=== PATIENT | female | born 1960 | race Caucasian/White ===

== ENCOUNTER 2018-09-20 07:30 | Outpatient (RCR) | payer BC, SELFPAY ==
--- NOTE | 2018-08-11 10:49 | HP.PTEVAL_ITS ---
Patient's Visit Information KANDY FLEMING is a 58 year old F referred to Physical Therapy by Claudia Griffith MD with a diagnosis of c/s radiculopathy. Date of Evaluation: 08/11/18 Physical Therapist: Ian Aguilar, DPT, OCS, CSCS - Visit Plan Frequency: 2x /Week Duration: 4-6 Weeks Plan: 2x/week for 4-6 weeks... 1. Stephanie based progression of c/s ret/ext forces and monitor UE AROM, c/s AROM and symptoms. Progress to remodelling ex as helpful. 2. Postural correction and strength of posture and R RC. May need to do ext rot and flexion R shoulder ROM if stiffness not abated. 3. May use STM and ES if needed on R neck for pain if exs don't control symptoms. Pt may get MRI if therapy not helpful. - Subjective Findings: 9 years ago severe neck pain and down R arm insidiously. Had MRI adn found spurs and had PT and it improved and improved to normal life but not completely, has taken anti inflammatory for 9 years to keep it loos. Got soreness every now and then. Last January started getting sore more often. However in July it became regular and went into R arm again vs just neck. Now hard to move arm with full mobility. Went to doctor who ordered x rays and had them, then ordered PT. X rays show narrowing at base of neck. Wanted MRI but needs to have therapy first. Neck pain intermittently gets to 6/10 worse later in day and shoots to 9/10. Happens with moving arm as in reaching down to bottom shelf. Taking clothes out of dryer is tough. [ain is L side of neck and into shoulder. Also goes down arm to constant bicep and numbness in fingers 2/3 pretty constant but differing intensities. Wrist is sore at times. 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 Sleep is pretty good says she talks in sleep alot. Hobbies:Enjoys walking and still does it carefully. Plays with grand daughter adn this can hurt. is disabled and limits hobbies. Basic ADLS Ok just painful. Grocery store can hurt. - Pain R neck pain Pain Intensity (Out of 10): 5 Pain Intensity Range: 3, 9 - Objective Functional: Walks and transfers I with good balance. Posture is forward head and anterior scapula. UE AROM L WNL and R ext rotation to 40 R and 75 L, hurts at end range, R IR painful and to belt line, L is WNL, flexion is painful and stiff R at 120 and L is full. PROM painful past 120 and firm endfeel. c/s aROM 50 R rot with pain R, 60 L rotation without pain, 45 ext with pain R, flexion is WFL. reflexes 2/3 bi and tri. Sensation currently WNL to gross light touch in UE. + HK and neer. - sulcus R. - ext rotation lag test. - c/s compression test. repeated movements: c/s protrusion improved UE ROM , NE symptoms. c/s Retraction repeated: improved ROM UE adn neck ext , NE symptoms. Repeated c/s ret/ext: B UE adn neck ROM rot and ext. - Goals Goal 1:: Full aROM UE and c/s without increased pain to facilitate ADLS. Goal Time Frame: 4-6 Weeks Goal 2:: Pt feel back to baseline pain of 0-1/10 in necka nd no UE tingling. Goal Time Frame: 4-6 Weeks Goal 3:: Pt feel 90% better overall adn I approp HEP to maintain improvements Goal Time Frame: 4-6 Weeks Goal 4:: Work without increasing symptoms. Goal Time Frame: 4-6 Weeks - Rehabilitation Potential Physical Therapy Diagnosis: c/s radiculopathy with concurrent impingement. Rehabilitation Potential: Fair - Anticipated Interventions Patient/Client Instruction: Educate patient on: Condition, Plan of Care For the Purpose of:: To decrease pain, To increase ROM Therapeutic Exercise to Include: Strength training, Passive ROM, Active ROM, Stephanie Exercises For the Purpose of:: To decrease pain, To increase ROM, To improve muscle performance and motor function, To improve ability of physical actions for home/community/work/leisure Manual Therapy Techniques to Include: Soft tissue mobilization For the Purpose of:: To decrease pain, To increase ROM TENS: Yes Thermo therapy (hot pack): Yes For the Purpose of:: To increase ROM Thank you for the opportunity to evaluate your patient. For Medicare and Medicare HMO plans, please review the plan of care and approve it. It will need to be FAXED BACK to us at [phone] for Medicare purposes. For Medicare only, by signing this I certify the plan of care. Please let me know if there are questions or concerns regarding this plan of care. Physician Signature:____ Date:
--- NOTE | 2018-09-20 07:59 | HP.PTREVAL ---
Claudia Griffith MD, It has been my pleasure to treat KANDY FLEMING over the last 10 visits for c/s radiculopathy. Please see the progress note below for an update on the physical therapy plan of care! Subjective: Pain seems better. Only when pushes with exercises. Reaching behind to fasten bra and tuck in shirt are not perfect. Reaaching up is not bad. No pain at rest. Sleeping well. Motion is improving slowly. Objective/Function: 140 flexiona dn abduction, 55 exct rotation andL5 IR or at 90 degree abd is at 45 degrees and scap pulliing forward. strength is symmetrical at 4/5 flexion, abd, ext rot, int rot. No pain in neutral position, just with end range stretch. Tolerable. Plan Plan: Pt to doctor later in week. Says pain adn ucntion is livable now and not interested in further interventions if not needed. Plan to f/u every couple weeks in PT to ensure progress adn modify HEP as needed until patient doing well. Goals Goal 1:: Full aROM UE and c/s without increased pain to facilitate ADLS. Goal Time Frame: 4-6 Weeks Goal Progress: Progressing Goal 2:: Pt feel back to baseline pain of 0-1/10 in necka nd no UE tingling. Goal Time Frame: 4-6 Weeks Goal Progress: Goal Met Goal 3:: Pt feel 90% better overall adn I approp HEP to maintain improvements Goal Time Frame: 4-6 Weeks Goal Progress: Progressing Goal 4:: Work without increasing symptoms. Goal Time Frame: 4-6 Weeks Goal Progress: Goal Met Goal 5:: Pt continue to make progress with ROM via HEP without increased pain to help with ADL fastening bra and raching into cupboard. Goal Time Frame: 2-4 Weeks Goal Progress: NEW GOAL Anticipated Interventions Patient/Client Instruction: Educate patient on: Condition, Plan of Care For the Purpose of:: To decrease pain, To increase ROM Therapeutic Exercise to Include: Strength training, Passive ROM, Active ROM, Ivanna Exercises For the Purpose of:: To decrease pain, To increase ROM, To improve muscle performance and motor function, To improve ability of physical actions for home/community/work/leisure Manual Therapy Techniques to Include: Soft tissue mobilization For the Purpose of:: To decrease pain, To increase ROM TENS: Yes Thermo therapy (hot pack): Yes For the Purpose of:: To increase ROM Please do not hesitate to contact me at [phone] by phone or if you have questions or concerns regarding this new plan of care! Sincerely, Ian Aguilar, DPT, OCS, CSCS
--- NOTE | 2018-10-07 17:53 | HP.PTDCNRP_ITS ---
HP - Discharge Summary (1) - Patient Information KANDY FLEMING was seen in my office for initial evaluation on 08/11/18. The following Plan of Care was established for this patient: Initial Frequency: 2x /Week Initial Duration: 4-6 Weeks - Anticipated Interventions Patient/Client Instruction: Educate patient on: Condition, Plan of Care For the Purpose of:: To decrease pain, To increase ROM Therapeutic Exercise to Include: Strength training, Passive ROM, Active ROM, Ivanna Exercises For the Purpose of:: To decrease pain, To increase ROM, To improve muscle per formance and motor function, To improve ability of physical actions for home/community/work/leisure Manual Therapy Techniques to Include: Soft tissue mobilization For the Purpose of:: To decrease pain, To increase ROM TENS: Yes Thermo therapy (hot pack): Yes For the Purpose of:: To increase ROM This patient was last seen in our office 09/20/18. Pertinent comments regarding their Physical therapy will appear below: Pt seen for 10 visits and doing well. Was to f/u for checks but has called and cancelled stating that she is doing well and does nto need to return. At this point I will be discontinuing this patient from physical therapy. I would be happy to see this patient again in the future if found appropriate by the physician. Thank you! Ian Aguilar, DPT, OCS, CSCS
== END 2018-09-20 19:00 | disposition home or self-care (01) ==
LOC: PT 07:30
PROVIDERS: Family Provider Family Medicine; PCP Family Medicine; Referring Provider Family Medicine; Visit Provider Family Medicine
DX: M54.2 Cervicalgia (principal); M79.601 Pain in right arm
CPT/HCPCS: 97110; 97140; 97162; 97530

== ENCOUNTER → 2020-07-04 13:26 | Outpatient (CLI) | payer BC, SELFPAY ==
--- NOTE | 2020-07-04 13:35 | RAD_ITS ---
STUDY: X-RAY - LUMBAR SPINE REASON FOR EXAM: Female, 59 years old. CHRONIC PAIN, NKI TECHNIQUE: 3 view(s) of the lumbar spine were obtained. COMPARISON: None FINDINGS: Normal lumbar lordosis. Slight dextrocurvature. There is a normal alignment of the vertebrae. Normal vertebral bodies and endplates. Advanced disc narrowing at L5-S1. Mild disc narrowing at other lumbar levels. Facet arthrosis at L3-4, L4-5 and L5-S1. Mild vascular calcification. RAD/Lumbar Spine 2 or 3 Views IMPRESSION: Normal lordosis of the lumbar spine with a slight dextrocurvature. Negative for fracture, osteolytic or blastic bone lesion. Severe disc narrowing at L5-S1. Mild disc narrowing at other levels. Facet arthrosis at L3-4, L4-5 and L5-S1. Electronically Signed: Michelle Barrett MD at 20:29 EST , Service support ,
--- NOTE | 2020-07-04 13:35 | RAD_ITS ---
STUDY: X-RAY - SACRUM/COCCYX REASON FOR EXAM: Female, 59 years old. CHRONIC PAIN, NKI TECHNIQUE: 3 view(s) of the sacrum and coccyx were obtained. COMPARISON: None. FINDINGS: Normal bilateral sacroiliac joints. Normal visualized sacral ala and fused sacral bodies. Normal sacrococcygeal junction with a normal angulation. Normal coccygeal segments. The presacral soft tissue structures are unremarkable. RAD/Sacrum-Coccyx min 2 Views IMPRESSION: Normal x-rays of the sacrum and coccyx. Electronically Signed: Michelle Barrett MD at 20:38 EST , Service support ,
== END ==
PROVIDERS: PCP Family Medicine; Referring Provider Anesthesiology Pain Medicine; Visit Provider Anesthesiology Pain Medicine
DX: M54.9 Dorsalgia, unspecified (principal)
CPT/HCPCS: 72100; 72220

== ENCOUNTER 2020-11-21 14:33 | Outpatient (RCR) | payer BC, SELFPAY ==
[2020-11-21] MEDS: COVID-19 VACC, MRNA(PFIZER)/PF 30 MCG/0.3 ML SYRINGE IM (13:03)
[2020-12-12] MEDS: COVID-19 VACC, MRNA(PFIZER)/PF 30 MCG/0.3 ML SYRINGE IM (12:30)
== END 2021-01-08 23:59 ==
LOC: IMMUN 14:33
PROVIDERS: PCP Family Medicine; Referring Provider Family Medicine; Visit Provider Family Medicine
DX: Z23 Encounter for immunization (principal)
CPT/HCPCS: 0001A; 0002A; 91300

== ENCOUNTER → 2020-12-04 15:10 | Outpatient (CLI) | payer BC, SELFPAY ==
[2020-12-04 14:37] VITALS: BMI 36.9
--- NOTE | 2020-12-04 15:36 | RAD_ITS ---
STUDY: X-RAY - RIGHT KNEE REASON FOR EXAM: Female, 60 years old. Pain. TECHNIQUE: 4 view(s) of the knee. COMPARISON: None. FINDINGS: Normal visualized distal femur. Normal visualized proximal tibia and fibula. Normal proximal tibiofibular articulation. There is no acute fracture, dislocation or destructive osseous pathology. Normal medial femorotibial compartment. Normal lateral femorotibial compartment. Normal patellofemoral articulation. There is no demonstrated joint effusion. The soft tissue structures are unremarkable. RAD/Knee 4 or More Views IMPRESSION: Normal x-ray examination of the knee. Electronically Signed: Thda Naylor DO at 23:46 EDT Tel [phone], Service support ,
[2020-12-04 16:47] LABS: Absolute Lymphocyte Count 2.91 X10^3/uL (0.83-4.51); Absolute Neutrophil Count 2.9 X10^3/uL (2.0-7.7); Basophil# 0.06 X10^3/uL; Basophil% 0.9 % (0-1); Eosinophil# 0.14 X10^3/uL; Eosinophils% 2.2 % (0-5); Hematocrit 40.9 % (37-47); Hemoglobin 12.5 g/dL (12.0-15.0); Lymphocyte # 2.91 X10^3/ul (0.83-4.51); Lymphocyte % 44.7 % (19-41); Mean Corp Hgb Conc 30.6 g/dL (32-36); Mean Corpuscular Hgb 28.3 pg (27.0-32.0); Mean Corpuscular Volume 92.5 fL (81-99); Mean Platelet Vol. 10.7 fl (6.2-12.0); Monocyte# 0.51 X10^3/uL; Monocyte% 7.8 % (0-10); NRBC Flagged by Analyzer 0 % (0-5); Neutrophil # 2.87 X10^3/uL (2.7-7.7); Neutrophil % 44.1 % (47-70); Platelet Count 338 K/mm3 (150-450); RBC Distribution Width SD 51.5 fl (35.1-43.9); Red Blood Count 4.42 M/mm3 (4.2-5.4); White Blood Count 6.5 K/mm3 (4.4-11.0)
[2020-12-04 16:58] LABS: Erythrocyte Sedimentation Rate 29 mm/hr (0-30)
[2020-12-04 17:23] LABS: ALB/GLOB Ratio 0.8 RATIO (0.9-2.4); AST(SGOT) 34 U/L (15-37); Alanine Aminotransfer ALT/SGPT 49 U/L (13-56); Albumin, Serum 3.5 g/dL (3.2-5.0); Alkaline Phosphatase 103 U/L (45-117); Anion Gap 8 (5-15); BUN 13 mg/dL (7-18); BUN/Creat Ratio 19.3 RATIO (10-20); Calcium,Total 8.8 mg/dL (8.5-10.1); Chloride 105 mmol/L (98-107); Creatinine, Serum 0.68 mg/dL (0.55-1.02); EST Glomerular Filtration Rate 95 mL/min (>60); Est Glom Filt Rate - Afr Amer 115 mL/min (>60); Globulin 4.3 g/dL (2.2-4.2); Glucose 78 mg/dL (74-106); Protein, Total 7.8 g/dL (6.4-8.2); Sodium Level 140 mmol/L (136-145); Thyroid Stim Hormone (TSH) 1.41 uIU/mL (0.358-3.74)
[2020-12-06 15:40] LABS: ANTINUCLEAR ANTIBODIES DIRECT Negative (Negative)
== END ==
PROVIDERS: PCP Internal Medicine; Referring Provider Internal Medicine; Visit Provider Internal Medicine
DX: M25.561 Pain in right knee (principal); M19.90 Unspecified osteoarthritis, unspecified site; Z13.29 Encounter for screening for other suspected endocrine disorder
CPT/HCPCS: 36415; 73564; 80053; 84439; 84443; 85025; 85652; 86038; 86140; 86225; 86235; 86431

== ENCOUNTER → 2020-12-20 09:56 | Outpatient (CLI) | payer BC, SELFPAY ==
[2020-12-20 09:15] VITALS: BMI 36.9
--- NOTE | 2020-12-20 09:59 | RAD_ITS ---
STUDY: X-RAY CHEST REASON FOR EXAM: Female, 60 years old. Cough, wheeze -- Negative COVID-19 12/17 TECHNIQUE: PA and lateral views of the chest. COMPARISON: None. FINDINGS: There are interstitial changes of the lungs. There is no demonstrated pleural abnormality. Normal size heart. Normal mediastinum and maddy. Normal visualized pulmonary arteries. Normal visualized aortic arch and descending thoracic aorta. There are diffuse degenerative changes of the visualized thoracic spine. Normal visualized ribs, clavicles, and shoulders. There is no demonstrated abnormality of the visualized soft tissue structures of the upper abdomen. RAD/Chest PA and Lateral IMPRESSION: Chronic interstitial changes, no superimposed acute pulmonary process Electronically Signed: Gerardo Aguilar MD at 10:42 EDT , Service support ,
== END ==
PROVIDERS: PCP Internal Medicine; Referring Provider Physician Assistant; Visit Provider Physician Assistant
DX: R05 Cough (principal); R06.2 Wheezing; R09.89 Other specified symptoms and signs involving the circulatory and respiratory systems
CPT/HCPCS: 71046

== ENCOUNTER → 2021-01-14 08:54 | Outpatient (CLI) | payer BC, SELFPAY ==
[2021-01-14 08:29] VITALS: BMI 36.9
== END ==
PROVIDERS: PCP Internal Medicine; Referring Provider Internal Medicine; Visit Provider Internal Medicine
DX: M06.9 Rheumatoid arthritis, unspecified (principal); M19.90 Unspecified osteoarthritis, unspecified site
CPT/HCPCS: 36415; 86140; 86431

== ENCOUNTER → 2021-01-22 09:38 | Outpatient (CLI) | payer BC, SELFPAY ==
[2021-01-14 08:29] VITALS: BMI 36.9
[2021-01-22 12:39] LABS: Absolute Lymphocyte Count 2.34 X10^3/uL (0.83-4.51); Absolute Neutrophil Count 3.8 X10^3/uL (2.0-7.7); Basophil# 0.06 X10^3/uL; Basophil% 0.9 % (0-1); Eosinophil# 0.15 X10^3/uL; Eosinophils% 2.1 % (0-5); Hemoglobin 13.4 g/dL (12.0-15.0); Lymphocyte # 2.34 X10^3/ul (0.83-4.51); Lymphocyte % 33.2 % (19-41); Mean Corp Hgb Conc 31.2 g/dL (32-36); Mean Corpuscular Hgb 28.4 pg (27.0-32.0); Mean Corpuscular Volume 91.1 fL (81-99); Mean Platelet Vol. 11.4 fl (6.2-12.0); Monocyte# 0.66 X10^3/uL; Monocyte% 9.4 % (0-10); NRBC Flagged by Analyzer 0 % (0-5); Platelet Count 312 K/mm3 (150-450); RBC Distribution Width CV 15.1 % (11.6-14.6); RBC Distribution Width SD 50.6 fl (35.1-43.9); Red Blood Count 4.72 M/mm3 (4.2-5.4)
[2021-01-22 13:14] LABS: ALB/GLOB Ratio 0.9 RATIO (0.9-2.4); AST(SGOT) 19 U/L (15-37); Alanine Aminotransfer ALT/SGPT 26 U/L (13-56); Albumin, Serum 3.5 g/dL (3.2-5.0); Alkaline Phosphatase 100 U/L (45-117); Anion Gap 5 (5-15); BUN 14 mg/dL (7-18); BUN/Creat Ratio 17.1 RATIO (10-20); Calcium,Total 8.9 mg/dL (8.5-10.1); Chloride 109 mmol/L (98-107); Creatinine, Serum 0.82 mg/dL (0.55-1.02); EST Glomerular Filtration Rate 76 mL/min (>60); Est Glom Filt Rate - Afr Amer 92 mL/min (>60); Globulin 3.8 g/dL (2.2-4.2); Glucose 84 mg/dL (74-106); Potassium 4.5 mmol/L (3.5-5.1); Protein, Total 7.3 g/dL (6.4-8.2); Sodium Level 142 mmol/L (136-145)
[2021-01-22 13:40] LABS: Hepatitis B Surface Antibody Non-Reactive; Hepatitis B Surface Antigen Non-Reactive (Nonreactive); Hepatitis C Antibody Non-Reactive (Nonreactive)
== END ==
PROVIDERS: PCP Internal Medicine; Referring Provider Internal Medicine Rheumatology; Visit Provider Internal Medicine Rheumatology
DX: M05.79 Rheumatoid arthritis with rheumatoid factor of multiple sites without organ or systems involvement (principal); Z79.899 Other long term (current) drug therapy; Z86.711 Personal history of pulmonary embolism
CPT/HCPCS: 36415; 80053; 85025; 86706; 86803; 87340

== ENCOUNTER → 2021-04-10 07:33 | Outpatient (CLI) | payer BC, SELFPAY ==
[2021-04-10 10:07] LABS: Absolute Lymphocyte Count 1.82 X10^3/uL (0.83-4.51); Absolute Neutrophil Count 5.9 X10^3/uL (2.0-7.7); Basophil# 0.07 X10^3/uL; Basophil% 0.8 % (0-1); Eosinophil# 0.15 X10^3/uL; Eosinophils% 1.7 % (0-5); Hematocrit 37.8 % (37-47); Hemoglobin 11.9 g/dL (12.0-15.0); Lymphocyte # 1.82 X10^3/ul (0.83-4.51); Lymphocyte % 21.1 % (19-41); Mean Corp Hgb Conc 31.5 g/dL (32-36); Mean Corpuscular Volume 92.2 fL (81-99); Mean Platelet Vol. 10.7 fl (6.2-12.0); Monocyte# 0.71 X10^3/uL; Monocyte% 8.2 % (0-10); NRBC Flagged by Analyzer 0 % (0-5); Neutrophil # 5.85 X10^3/uL (2.7-7.7); Neutrophil % 67.9 % (47-70); Platelet Count 318 K/mm3 (150-450); RBC Distribution Width CV 16.4 % (11.6-14.6); RBC Distribution Width SD 54.4 fl (35.1-43.9); White Blood Count 8.6 K/mm3 (4.4-11.0)
[2021-04-10 10:20] LABS: ALB/GLOB Ratio 0.8 RATIO (0.9-2.4); AST(SGOT) 19 U/L (15-37); Alanine Aminotransfer ALT/SGPT 27 U/L (13-56); Albumin, Serum 3.1 g/dL (3.2-5.0); Alkaline Phosphatase 87 U/L (45-117); Anion Gap 3 (5-15); BUN 13 mg/dL (7-18); BUN/Creat Ratio 17.2 RATIO (10-20); Calcium,Total 8.7 mg/dL (8.5-10.1); Chloride 111 mmol/L (98-107); Creatinine, Serum 0.76 mg/dL (0.55-1.02); EST Glomerular Filtration Rate 83 mL/min (>60); Est Glom Filt Rate - Afr Amer 101 mL/min (>60); Globulin 3.9 g/dL (2.2-4.2); Glucose 143 mg/dL (74-106); Sodium Level 142 mmol/L (136-145)
== END ==
PROVIDERS: PCP Internal Medicine; Referring Provider Internal Medicine Rheumatology; Visit Provider Internal Medicine Rheumatology
DX: M05.79 Rheumatoid arthritis with rheumatoid factor of multiple sites without organ or systems involvement (principal); Z79.899 Other long term (current) drug therapy; Z86.711 Personal history of pulmonary embolism
CPT/HCPCS: 36415; 80053; 85025

== ENCOUNTER → 2021-06-18 07:08 | Outpatient (CLI) | payer BC, SELFPAY ==
[2021-06-18 09:55] LABS: Absolute Lymphocyte Count 2.07 X10^3/uL (0.83-4.51); Absolute Neutrophil Count 2.9 X10^3/uL (2.0-7.7); Basophil# 0.06 X10^3/uL; Basophil% 1.1 % (0-1); Eosinophil# 0.14 X10^3/uL; Eosinophils% 2.5 % (0-5); Hematocrit 40.8 % (37-47); Hemoglobin 13.1 g/dL (12.0-15.0); Lymphocyte # 2.07 X10^3/ul (0.83-4.51); Lymphocyte % 36.8 % (19-41); Mean Corp Hgb Conc 32.1 g/dL (32-36); Mean Corpuscular Hgb 29.6 pg (27.0-32.0); Mean Corpuscular Volume 92.1 fL (81-99); Mean Platelet Vol. 11.4 fl (6.2-12.0); Monocyte# 0.44 X10^3/uL; Monocyte% 7.8 % (0-10); NRBC Flagged by Analyzer 0 % (0-5); Neutrophil # 2.91 X10^3/uL (2.7-7.7); Neutrophil % 51.6 % (47-70); Platelet Count 284 K/mm3 (150-450); RBC Distribution Width SD 54.2 fl (35.1-43.9); Red Blood Count 4.43 M/mm3 (4.2-5.4); White Blood Count 5.6 K/mm3 (4.4-11.0)
[2021-06-18 10:24] LABS: ALB/GLOB Ratio 0.9 RATIO (0.9-2.4); AST(SGOT) 18 U/L (15-37); Alanine Aminotransfer ALT/SGPT 26 U/L (13-56); Albumin, Serum 3.4 g/dL (3.2-5.0); Alkaline Phosphatase 92 U/L (45-117); Anion Gap 4 (5-15); BUN 18 mg/dL (7-18); BUN/Creat Ratio 23.6 RATIO (10-20); Calcium,Total 8.9 mg/dL (8.5-10.1); Chloride 109 mmol/L (98-107); Creatinine, Serum 0.76 mg/dL (0.55-1.02); EST Glomerular Filtration Rate 82 mL/min (>60); Est Glom Filt Rate - Afr Amer 99 mL/min (>60); Globulin 3.8 g/dL (2.2-4.2); Glucose 125 mg/dL (74-106); Protein, Total 7.2 g/dL (6.4-8.2); Sodium Level 141 mmol/L (136-145)
== END ==
PROVIDERS: PCP Internal Medicine; Referring Provider Internal Medicine Rheumatology; Visit Provider Internal Medicine Rheumatology
DX: M05.79 Rheumatoid arthritis with rheumatoid factor of multiple sites without organ or systems involvement (principal); Z79.899 Other long term (current) drug therapy; Z86.711 Personal history of pulmonary embolism
CPT/HCPCS: 36415; 80053; 85025

== ENCOUNTER 2021-08-06 12:54 | Outpatient (CLI) | payer BC, SELFPAY | END 2021-08-06 23:59 | disposition short-term general hospital (02) | PROVIDERS: PCP Internal Medicine; Referring Provider Physician Assistant; Visit Provider Physician Assistant | DX: Z11.52 Encounter for screening for COVID-19 (principal) | CPT/HCPCS: 87635; U0003; U0005 ==

== ENCOUNTER 2021-08-13 07:20 | Outpatient (CLI) | payer BC, SELFPAY ==
[2021-08-13 10:10] LABS: Absolute Lymphocyte Count 2.09 X10^3/uL (0.83-4.51); Absolute Neutrophil Count 4.3 X10^3/uL (2.0-7.7); Basophil# 0.05 X10^3/uL; Basophil% 0.7 % (0-1); Eosinophil# 0.09 X10^3/uL; Eosinophils% 1.3 % (0-5); Hematocrit 41.6 % (37-47); Hemoglobin 13.2 g/dL (12.0-15.0); Lymphocyte # 2.09 X10^3/ul (0.83-4.51); Lymphocyte % 29.8 % (19-41); Mean Corp Hgb Conc 31.7 g/dL (32-36); Mean Corpuscular Hgb 30.1 pg (27.0-32.0); Mean Platelet Vol. 11.3 fl (6.2-12.0); Monocyte# 0.47 X10^3/uL; Monocyte% 6.7 % (0-10); NRBC Flagged by Analyzer 0 % (0-5); Neutrophil % 61.2 % (47-70); Platelet Count 289 K/mm3 (150-450); RBC Distribution Width CV 17.2 % (11.6-14.6); RBC Distribution Width SD 59.3 fl (35.1-43.9); Red Blood Count 4.38 M/mm3 (4.2-5.4)
[2021-08-13 10:20] LABS: ALB/GLOB Ratio 0.9 RATIO (0.9-2.4); AST(SGOT) 16 U/L (15-37); Alanine Aminotransfer ALT/SGPT 24 U/L (13-56); Albumin, Serum 3.1 g/dL (3.2-5.0); Alkaline Phosphatase 87 U/L (45-117); Anion Gap 5 (5-15); BUN 16 mg/dL (7-18); BUN/Creat Ratio 20.4 RATIO (10-20); Calcium,Total 8.9 mg/dL (8.5-10.1); Chloride 108 mmol/L (98-107); Creatinine, Serum 0.79 mg/dL (0.55-1.02); EST Glomerular Filtration Rate 79 mL/min (>60); Est Glom Filt Rate - Afr Amer 96 mL/min (>60); Globulin 3.6 g/dL (2.2-4.2); Glucose 111 mg/dL (74-106); Potassium 3.9 mmol/L (3.5-5.1); Protein, Total 6.7 g/dL (6.4-8.2); Sodium Level 144 mmol/L (136-145)
== END 2021-08-13 23:59 | disposition short-term general hospital (02) ==
LOC: MTLAB 07:21
PROVIDERS: PCP Internal Medicine; Referring Provider Internal Medicine Rheumatology; Visit Provider Internal Medicine Rheumatology
DX: M05.70 Rheumatoid arthritis with rheumatoid factor of unspecified site without organ or systems involvement (principal); Z79.899 Other long term (current) drug therapy; Z86.711 Personal history of pulmonary embolism
CPT/HCPCS: 36415; 80053; 85025

== ENCOUNTER 2021-09-09 15:10 | Outpatient (CLI) | payer BC, SELFPAY | END 2021-09-09 23:59 | disposition home or self-care (01) | LOC: IMMUN 09-10 15:10 | PROVIDERS: PCP Internal Medicine; Referring Provider Family Medicine; Visit Provider Family Medicine | DX: Z23 Encounter for immunization (principal) ==

== ENCOUNTER 2021-11-04 11:59 | Outpatient (CLI) | payer BC, SELFPAY ==
[2021-11-04 15:10] LABS: Absolute Lymphocyte Count 3.54 X10^3/uL (0.83-4.51); Basophil# 0.06 X10^3/uL; Basophil% 0.6 % (0-1); Eosinophil# 0.08 X10^3/uL; Eosinophils% 0.9 % (0-5); Hematocrit 41.2 % (37-47); Hemoglobin 12.9 g/dL (12.0-15.0); Lymphocyte # 3.54 X10^3/ul (0.83-4.51); Lymphocyte % 37.9 % (19-41); Mean Corp Hgb Conc 31.3 g/dL (32-36); Mean Corpuscular Hgb 30.1 pg (27.0-32.0); Mean Platelet Vol. 11.2 fl (6.2-12.0); Monocyte# 0.66 X10^3/uL; Monocyte% 7.1 % (0-10); NRBC Flagged by Analyzer 0 % (0-5); Neutrophil # 4.97 X10^3/uL (2.7-7.7); Neutrophil % 53.2 % (47-70); Platelet Count 301 K/mm3 (150-450); RBC Distribution Width CV 15.9 % (11.6-14.6); RBC Distribution Width SD 55.3 fl (35.1-43.9); Red Blood Count 4.29 M/mm3 (4.2-5.4); White Blood Count 9.3 K/mm3 (4.4-11.0)
[2021-11-04 16:10] LABS: ALB/GLOB Ratio 1.2 RATIO (0.9-2.4); AST(SGOT) 20 U/L (15-37); Alanine Aminotransfer ALT/SGPT 37 U/L (13-56); Albumin, Serum 3.8 g/dL (3.2-5.0); Alkaline Phosphatase 86 U/L (45-117); Anion Gap 5 (5-15); BUN 15 mg/dL (7-18); BUN/Creat Ratio 18.3 RATIO (10-20); Calcium,Total 8.9 mg/dL (8.5-10.1); Chloride 101 mmol/L (98-107); Creatinine, Serum 0.82 mg/dL (0.55-1.02); EST Glomerular Filtration Rate 75 mL/min (>60); Est Glom Filt Rate - Afr Amer 91 mL/min (>60); Globulin 3.3 g/dL (2.2-4.2); Glucose 77 mg/dL (74-106); Potassium 3.8 mmol/L (3.5-5.1); Protein, Total 7.1 g/dL (6.4-8.2); Sodium Level 138 mmol/L (136-145)
== END 2021-11-04 23:59 | disposition home or self-care (01) ==
LOC: MTLAB 12:00
PROVIDERS: PCP Internal Medicine; Referring Provider Internal Medicine Rheumatology; Visit Provider Internal Medicine Rheumatology
DX: M05.70 Rheumatoid arthritis with rheumatoid factor of unspecified site without organ or systems involvement (principal); Z86.711 Personal history of pulmonary embolism; Z79.899 Other long term (current) drug therapy
CPT/HCPCS: 36415; 80053; 85025

== ENCOUNTER → 2022-02-05 | Outpatient (CLI) | payer BC, SELFPAY ==
[2022-02-05 10:19] LABS: Absolute Lymphocyte Count 1.73 X10^3/uL (0.83-4.51); Absolute Neutrophil Count 2.7 X10^3/uL (2.0-7.7); Basophil# 0.08 X10^3/uL; Basophil% 1.5 % (0-1); Eosinophil# 0.15 X10^3/uL; Eosinophils% 2.9 % (0-5); Hematocrit 37.6 % (37-47); Lymphocyte # 1.73 X10^3/ul (0.83-4.51); Mean Corp Hgb Conc 31.9 g/dL (32-36); Mean Corpuscular Hgb 30.2 pg (27.0-32.0); Mean Corpuscular Volume 94.7 fL (81-99); Monocyte# 0.52 X10^3/uL; Monocyte% 9.9 % (0-10); NRBC Flagged by Analyzer 0 % (0-5); Neutrophil # 2.74 X10^3/uL (2.7-7.7); Neutrophil % 52.3 % (47-70); Platelet Count 281 K/mm3 (150-450); RBC Distribution Width CV 15.8 % (11.6-14.6); RBC Distribution Width SD 53.9 fl (35.1-43.9); Red Blood Count 3.97 M/mm3 (4.2-5.4); White Blood Count 5.2 K/mm3 (4.4-11.0)
[2022-02-05 10:38] LABS: AST(SGOT) 19 U/L (15-37); Alanine Aminotransfer ALT/SGPT 23 U/L (13-56); Albumin, Serum 3.2 g/dL (3.2-5.0); Alkaline Phosphatase 77 U/L (45-117); Anion Gap 5 (5-15); BUN 13 mg/dL (7-18); BUN/Creat Ratio 17.4 RATIO (10-20); Calcium,Total 8.5 mg/dL (8.5-10.1); Chloride 109 mmol/L (98-107); Creatinine, Serum 0.74 mg/dL (0.55-1.02); EST Glomerular Filtration Rate 84 mL/min (>60); Est Glom Filt Rate - Afr Amer 102 mL/min (>60); Globulin 3.1 g/dL (2.2-4.2); Glucose 110 mg/dL (74-106); Potassium 4.1 mmol/L (3.5-5.1); Protein, Total 6.3 g/dL (6.4-8.2); Sodium Level 141 mmol/L (136-145)
== END | disposition home or self-care (01) ==
LOC: MTLAB 07:13
PROVIDERS: PCP Internal Medicine; Referring Provider Internal Medicine Rheumatology; Visit Provider Internal Medicine Rheumatology
DX: M05.70 Rheumatoid arthritis with rheumatoid factor of unspecified site without organ or systems involvement (principal); Z86.711 Personal history of pulmonary embolism; Z79.899 Other long term (current) drug therapy
CPT/HCPCS: 36415; 80053; 85025

== ENCOUNTER → 2022-05-06 | Outpatient (CLI) | payer BC, SELFPAY ==
[2022-05-06 10:07] LABS: Absolute Lymphocyte Count 1.83 X10^3/uL (0.83-4.51); Absolute Neutrophil Count 2.6 X10^3/uL (2.0-7.7); Basophil# 0.06 X10^3/uL; Basophil% 1.2 % (0-1); Eosinophil# 0.11 X10^3/uL; Eosinophils% 2.2 % (0-5); Hematocrit 40.2 % (37-47); Hemoglobin 12.9 g/dL (12.0-15.0); Lymphocyte # 1.83 X10^3/ul (0.83-4.51); Mean Corp Hgb Conc 32.1 g/dL (32-36); Mean Corpuscular Hgb 31.3 pg (27.0-32.0); Mean Corpuscular Volume 97.6 fL (81-99); Mean Platelet Vol. 11.5 fl (6.2-12.0); Monocyte# 0.38 X10^3/uL; Monocyte% 7.7 % (0-10); NRBC Flagged by Analyzer 0 % (0-5); Neutrophil # 2.56 X10^3/uL (2.7-7.7); Neutrophil % 51.7 % (47-70); Platelet Count 251 K/mm3 (150-450); RBC Distribution Width CV 15.4 % (11.6-14.6); RBC Distribution Width SD 54.8 fl (35.1-43.9); Red Blood Count 4.12 M/mm3 (4.2-5.4)
[2022-05-06 10:17] LABS: Erythrocyte Sedimentation Rate 3 mm/hr (0-30)
[2022-05-06 11:08] LABS: ALB/GLOB Ratio 0.9 RATIO (0.9-2.4); AST(SGOT) 21 U/L (15-37); Alanine Aminotransfer ALT/SGPT 27 U/L (13-56); Albumin, Serum 3.2 g/dL (3.2-5.0); Alkaline Phosphatase 73 U/L (45-117); Anion Gap 3 (5-15); BUN 13 mg/dL (7-18); BUN/Creat Ratio 16.1 RATIO (10-20); Calcium,Total 8.5 mg/dL (8.5-10.1); Chloride 109 mmol/L (98-107); EST Glomerular Filtration Rate 77 mL/min (>60); Est Glom Filt Rate - Afr Amer 93 mL/min (>60); Globulin 3.4 g/dL (2.2-4.2); Glucose 124 mg/dL (74-106); Protein, Total 6.6 g/dL (6.4-8.2); Sodium Level 142 mmol/L (136-145)
== END | disposition home or self-care (01) ==
LOC: MTLAB 07:03
PROVIDERS: PCP Internal Medicine; Referring Provider Internal Medicine Rheumatology; Visit Provider Internal Medicine Rheumatology
DX: M05.70 Rheumatoid arthritis with rheumatoid factor of unspecified site without organ or systems involvement (principal); Z79.899 Other long term (current) drug therapy; Z86.711 Personal history of pulmonary embolism
CPT/HCPCS: 36415; 80053; 85025; 85652; 86140

== ENCOUNTER → 2022-08-05 | Outpatient (CLI) | payer BC, SELFPAY ==
[2022-08-05 10:01] LABS: Erythrocyte Sedimentation Rate 10 mm/hr (0-30)
[2022-08-05 10:03] LABS: Absolute Lymphocyte Count 2.08 X10^3/uL (0.83-4.51); Absolute Neutrophil Count 2.6 X10^3/uL (2.0-7.7); Basophil# 0.05 X10^3/uL; Basophil% 0.9 % (0-1); Eosinophil# 0.12 X10^3/uL; Eosinophils% 2.3 % (0-5); Hematocrit 40.7 % (37-47); Hemoglobin 13.1 g/dL (12.0-15.0); Lymphocyte # 2.08 X10^3/ul (0.83-4.51); Lymphocyte % 39.1 % (19-41); Mean Corp Hgb Conc 32.2 g/dL (32-36); Mean Corpuscular Hgb 30.8 pg (27.0-32.0); Mean Corpuscular Volume 95.5 fL (81-99); Mean Platelet Vol. 11.4 fl (6.2-12.0); Monocyte# 0.49 X10^3/uL; Monocyte% 9.2 % (0-10); NRBC Flagged by Analyzer 0.4 % (0-5); Neutrophil # 2.57 X10^3/uL (2.7-7.7); Neutrophil % 48.3 % (47-70); Platelet Count 269 K/mm3 (150-450); RBC Distribution Width CV 14.8 % (11.6-14.6); RBC Distribution Width SD 51.3 fl (35.1-43.9); Red Blood Count 4.26 M/mm3 (4.2-5.4); White Blood Count 5.3 K/mm3 (4.4-11.0)
[2022-08-05 10:45] LABS: ALB/GLOB Ratio 1.2 RATIO (0.9-2.4); AST(SGOT) 28 U/L (15-37); Alanine Aminotransfer ALT/SGPT 45 U/L (13-56); Albumin, Serum 3.7 g/dL (3.2-5.0); Alkaline Phosphatase 80 U/L (45-117); Anion Gap 7 (5-15); BUN 19 mg/dL (7-18); BUN/Creat Ratio 23.7 RATIO (10-20); CRP 6.59 mg/L (0.0-3.0); Calcium,Total 9.1 mg/dL (8.5-10.1); Chloride 106 mmol/L (98-107); EST Glomerular Filtration Rate 77 mL/min (>60); Est Glom Filt Rate - Afr Amer 94 mL/min (>60); Glucose 115 mg/dL (74-106); Potassium 4.2 mmol/L (3.5-5.1); Protein, Total 6.7 g/dL (6.4-8.2); Sodium Level 141 mmol/L (136-145)
== END | disposition home or self-care (01) ==
LOC: MTLAB 07:08
PROVIDERS: PCP Internal Medicine; Referring Provider Internal Medicine Rheumatology; Visit Provider Internal Medicine Rheumatology
DX: M05.70 Rheumatoid arthritis with rheumatoid factor of unspecified site without organ or systems involvement (principal); Z86.711 Personal history of pulmonary embolism; Z79.899 Other long term (current) drug therapy
CPT/HCPCS: 36415; 80053; 85025; 85652; 86140

== ENCOUNTER → 2022-10-27 | Outpatient (CLI) | payer BC, SELFPAY ==
[2022-10-27 10:14] LABS: Absolute Lymphocyte Count 2.18 X10^3/uL (0.83-4.51); Absolute Neutrophil Count 2.8 X10^3/uL (2.0-7.7); Basophil# 0.06 X10^3/uL; Eosinophil# 0.22 X10^3/uL; Eosinophils% 3.8 % (0-5); Hematocrit 41.4 % (37-47); Lymphocyte # 2.18 X10^3/ul (0.83-4.51); Mean Corp Hgb Conc 31.4 g/dL (32-36); Mean Corpuscular Hgb 30.2 pg (27.0-32.0); Mean Corpuscular Volume 96.1 fL (81-99); Mean Platelet Vol. 11.6 fl (6.2-12.0); Monocyte% 8.7 % (0-10); NRBC Flagged by Analyzer 0 % (0-5); Neutrophil # 2.76 X10^3/uL (2.7-7.7); Neutrophil % 48.2 % (47-70); Platelet Count 265 K/mm3 (150-450); RBC Distribution Width CV 14.9 % (11.6-14.6); Red Blood Count 4.31 M/mm3 (4.2-5.4); White Blood Count 5.7 K/mm3 (4.4-11.0)
[2022-10-27 10:39] LABS: ALB/GLOB Ratio 1.1 RATIO (0.9-2.4); AST(SGOT) 18 U/L (15-37); Alanine Aminotransfer ALT/SGPT 26 U/L (13-56); Albumin, Serum 3.5 g/dL (3.2-5.0); Alkaline Phosphatase 73 U/L (45-117); Anion Gap 3 (5-15); BUN 20 mg/dL (7-18); BUN/Creat Ratio 22.7 RATIO (10-20); CRP 4.31 mg/L (0.0-3.0); Calcium,Total 8.9 mg/dL (8.5-10.1); Chloride 108 mmol/L (98-107); Cholesterol 198 mg/dL (200); Creatinine, Serum 0.88 mg/dL (0.55-1.02); EST Glomerular Filtration Rate 69 mL/min (>60); Est Glom Filt Rate - Afr Amer 84 mL/min (>60); Globulin 3.1 g/dL (2.2-4.2); Glucose 137 mg/dL (74-106); High Density Lipoprotein 41 mg/dL; Potassium 3.9 mmol/L (3.5-5.1); Protein, Total 6.6 g/dL (6.4-8.2); Sodium Level 140 mmol/L (136-145); Triglycerides 131 mg/dL; Very Low Density Lipoprotein 26 mg/dL (5-40)
== END | disposition home or self-care (01) ==
LOC: MTLAB 07:08
PROVIDERS: PCP Internal Medicine; Referring Provider Internal Medicine Rheumatology; Visit Provider Internal Medicine Rheumatology
DX: M05.70 Rheumatoid arthritis with rheumatoid factor of unspecified site without organ or systems involvement (principal); Z79.899 Other long term (current) drug therapy; Z86.711 Personal history of pulmonary embolism
CPT/HCPCS: 36415; 80053; 80061; 85025; 86140

== ENCOUNTER → 2022-11-18 | Outpatient (CLI) | payer BC, SELFPAY ==
--- NOTE | 2022-11-18 07:57 | MRI_ITS ---
STUDY: MRI LUMBAR SPINE WITHOUT CONTRAST REASON FOR EXAM: Female, 62 years old. RADICULOPATHY, lbp TECHNIQUE: Standardized fat and water weighted pulse sequences were obtained in the sagittal and axial planes. COMPARISON: Lumbar spine radiographs 07/04/2020. FINDINGS: T10-T11: (Sagittal only). Schmorl''s node in the T10 inferior endplate. Normal T11 superior endplate. Normal disc height. No ventral extradural defect. Normal central canal and bilateral intervertebral neural foramina. T11-T12 and T12-L1: (Sagittal only). Normal endplates. Normal disc height, hydration and morphology. No ventral extradural defects. Normal central canal and bilateral intervertebral neural foramina. Normal lumbar lordosis. There is no substantial scoliosis. Normal conus medullaris that terminates at the upper L1 vertebral body level. L1-2: Normal endplates. Normal disc height, hydration and morphology. Normal bilateral facet joints. Normal central canal and bilateral lateral recesses. Normal bilateral intervertebral neural foramina. L2-3: Normal endplates. Minimal disc space height narrowing. Mild ventral extradural defect is small posterior bulging annulus. Mild bilateral degenerative facet arthropathy. Prominent dorsal epidural lipomatosis. Normal central canal and bilateral lateral recesses. Normal bilateral intervertebral neural foramina. L3-4: Normal endplates. Mild disc space height narrowing. Minimal ventral extradural defect due to small posterior bulging annulus. Normal facet joints. Mild dorsal epidural lipomatosis. Normal central canal and bilateral lateral recesses. Normal bilateral intervertebral neural foramina. L4-5: Normal endplates. Mild disc space height narrowing. Mild right degenerative facet arthropathy. Normal left facet joint. Prominent dorsal epidural lipomatosis. Normal central canal and bilateral lateral recesses. Normal bilateral intervertebral neural foramina. L5-S1: Normal endplates. Pronounced disc space height narrowing. Normal facet joints. Normal central canal and bilateral lateral recesses. Mild to moderate stenosis of the right intervertebral neural foramen. Mild stenosis of the left intervertebral neural foramen. Normal visualized sacral ala. Normal visualized paraspinous soft tissue structures. MRI/Spine Lumbar (Routine) IMPRESSION: 1. Mild to moderate stenosis of right L5-S1 intervertebral neural foramen, mild stenosis of the left L5-S1 intervertebral neural foramen and pronounced L5-S1 degenerative disc space height narrowing. 2. No MRI evidence of lumbar extruded disc fragment or disc protrusion. Electronically Signed: Murtaza Fairbanks MD at 9:13 EDT ,
== END | disposition home or self-care (01) ==
PROVIDERS: PCP Internal Medicine; Referring Provider Anesthesiology Pain Medicine; Visit Provider Anesthesiology Pain Medicine
DX: M54.16 Radiculopathy, lumbar region (principal)
CPT/HCPCS: 72148

== ENCOUNTER → 2023-01-19 | Outpatient (CLI) | payer BC, SELFPAY ==
[2023-01-19 10:14] LABS: Absolute Lymphocyte Count 2.24 X10^3/uL (0.83-4.51); Absolute Neutrophil Count 3.1 X10^3/uL (2.0-7.7); Basophil# 0.06 X10^3/uL; Eosinophil# 0.18 X10^3/uL; Eosinophils% 2.9 % (0-5); Hematocrit 40.4 % (37-47); Hemoglobin 12.7 g/dL (12.0-15.0); Lymphocyte # 2.24 X10^3/ul (0.83-4.51); Lymphocyte % 36.3 % (19-41); Mean Corp Hgb Conc 31.4 g/dL (32-36); Mean Corpuscular Volume 98.5 fL (81-99); Mean Platelet Vol. 11.1 fl (6.2-12.0); Monocyte# 0.59 X10^3/uL; Monocyte% 9.6 % (0-10); NRBC Flagged by Analyzer 0 % (0-5); Neutrophil # 3.07 X10^3/uL (2.7-7.7); Neutrophil % 49.7 % (47-70); Platelet Count 274 K/mm3 (150-450); RBC Distribution Width CV 15.2 % (11.6-14.6); RBC Distribution Width SD 54.8 fl (35.1-43.9); White Blood Count 6.2 K/mm3 (4.4-11.0)
[2023-01-19 10:35] LABS: ALB/GLOB Ratio 0.9 RATIO (0.9-2.4); AST(SGOT) 16 U/L (15-37); Alanine Aminotransfer ALT/SGPT 20 U/L (13-56); Albumin, Serum 3.2 g/dL (3.2-5.0); Alkaline Phosphatase 81 U/L (45-117); Anion Gap 4 (5-15); BUN 18 mg/dL (7-18); BUN/Creat Ratio 22.2 RATIO (10-20); CRP 7.06 mg/L (0.0-3.0); Calcium,Total 8.6 mg/dL (8.5-10.1); Chloride 109 mmol/L (98-107); Creatinine, Serum 0.81 mg/dL (0.55-1.02); EST Glomerular Filtration Rate 76 mL/min (>60); Est Glom Filt Rate - Afr Amer 92 mL/min (>60); Globulin 3.4 g/dL (2.2-4.2); Glucose 127 mg/dL (74-106); Protein, Total 6.6 g/dL (6.4-8.2); Sodium Level 141 mmol/L (136-145)
== END | disposition home or self-care (01) ==
LOC: MTLAB 07:15
PROVIDERS: PCP Internal Medicine; Referring Provider Internal Medicine Rheumatology; Visit Provider Internal Medicine Rheumatology
DX: M05.70 Rheumatoid arthritis with rheumatoid factor of unspecified site without organ or systems involvement (principal); Z79.899 Other long term (current) drug therapy; Z86.711 Personal history of pulmonary embolism
CPT/HCPCS: 36415; 80053; 85025; 86140

== ENCOUNTER → 2023-03-04 | Outpatient (CLI) | payer BC, SELFPAY ==
[2023-03-04 16:53] LABS: Absolute Lymphocyte Count 2.23 X10^3/uL (0.83-4.51); Basophil# 0.06 X10^3/uL; Eosinophil# 0.16 X10^3/uL; Eosinophils% 2.6 % (0-5); Hematocrit 41.7 % (37-47); Hemoglobin 13.3 g/dL (12.0-15.0); Lymphocyte # 2.23 X10^3/ul (0.83-4.51); Lymphocyte % 36.7 % (19-41); Mean Corp Hgb Conc 31.9 g/dL (32-36); Mean Corpuscular Hgb 30.4 pg (27.0-32.0); Mean Corpuscular Volume 95.2 fL (81-99); Monocyte# 0.66 X10^3/uL; Monocyte% 10.9 % (0-10); NRBC Flagged by Analyzer 0 % (0-5); Neutrophil # 2.95 X10^3/uL (2.7-7.7); Neutrophil % 48.6 % (47-70); Platelet Count 278 K/mm3 (150-450); RBC Distribution Width CV 14.6 % (11.6-14.6); RBC Distribution Width SD 50.6 fl (35.1-43.9); Red Blood Count 4.38 M/mm3 (4.2-5.4); White Blood Count 6.1 K/mm3 (4.4-11.0)
[2023-03-04 17:26] LABS: AST(SGOT) 25 U/L (15-37); Alanine Aminotransfer ALT/SGPT 35 U/L (13-56); Albumin, Serum 3.7 g/dL (3.2-5.0); Alkaline Phosphatase 89 U/L (45-117); Anion Gap 6 (5-15); BUN 18 mg/dL (7-18); BUN/Creat Ratio 21.8 RATIO (10-20); Calcium,Total 8.8 mg/dL (8.5-10.1); Chloride 105 mmol/L (98-107); Creatinine, Serum 0.83 mg/dL (0.55-1.02); EST Glomerular Filtration Rate 75 mL/min (>60); Est Glom Filt Rate - Afr Amer 90 mL/min (>60); Globulin 3.6 g/dL (2.2-4.2); Glucose 80 mg/dL (74-106); Potassium 3.8 mmol/L (3.5-5.1); Protein, Total 7.3 g/dL (6.4-8.2); Sodium Level 138 mmol/L (136-145)
== END | disposition home or self-care (01) ==
LOC: BIMLAB 16:14
PROVIDERS: PCP Internal Medicine; Visit Provider Internal Medicine
DX: Z01.818 Encounter for other preprocedural examination (principal)
CPT/HCPCS: 36415; 80053; 85025

== ENCOUNTER → 2023-04-24 | Outpatient (CLI) | payer BC, SELFPAY ==
[2023-04-24 12:21] LABS: Absolute Lymphocyte Count 3.46 X10^3/uL (0.83-4.51); Absolute Neutrophil Count 3.4 X10^3/uL (2.0-7.7); Basophil# 0.07 X10^3/uL; Basophil% 0.9 % (0-1); Eosinophil# 0.15 X10^3/uL; Hematocrit 40.4 % (37-47); Hemoglobin 12.7 g/dL (12.0-15.0); Lymphocyte # 3.46 X10^3/ul (0.83-4.51); Lymphocyte % 45.1 % (19-41); Mean Corp Hgb Conc 31.4 g/dL (32-36); Mean Corpuscular Volume 98.5 fL (81-99); Mean Platelet Vol. 11.7 fl (6.2-12.0); Monocyte# 0.63 X10^3/uL; Monocyte% 8.2 % (0-10); NRBC Flagged by Analyzer 0 % (0-5); Neutrophil # 3.35 X10^3/uL (2.7-7.7); Neutrophil % 43.5 % (47-70); Platelet Count 261 K/mm3 (150-450); RBC Distribution Width CV 15.5 % (11.6-14.6); RBC Distribution Width SD 55.1 fl (35.1-43.9); White Blood Count 7.7 K/mm3 (4.4-11.0)
[2023-04-24 13:19] LABS: AST(SGOT) 18 U/L (15-37); Alanine Aminotransfer ALT/SGPT 29 U/L (13-56); Albumin, Serum 3.3 g/dL (3.2-5.0); Alkaline Phosphatase 70 U/L (45-117); Anion Gap 3 (5-15); BUN 11 mg/dL (7-18); BUN/Creat Ratio 14.6 RATIO (10-20); Calcium,Total 8.3 mg/dL (8.5-10.1); Chloride 111 mmol/L (98-107); Creatinine, Serum 0.76 mg/dL (0.55-1.02); EST Glomerular Filtration Rate 83 mL/min (>60); Est Glom Filt Rate - Afr Amer 100 mL/min (>60); Globulin 3.4 g/dL (2.2-4.2); Glucose 85 mg/dL (74-106); Potassium 3.9 mmol/L (3.5-5.1); Protein, Total 6.7 g/dL (6.4-8.2); Sodium Level 142 mmol/L (136-145)
== END | disposition home or self-care (01) ==
LOC: BIMLAB 08:32
PROVIDERS: PCP Internal Medicine; Referring Provider Internal Medicine Rheumatology; Visit Provider Internal Medicine Rheumatology
DX: M05.70 Rheumatoid arthritis with rheumatoid factor of unspecified site without organ or systems involvement (principal); Z79.899 Other long term (current) drug therapy
CPT/HCPCS: 36415; 80053; 85025

== ENCOUNTER → 2023-07-13 | Outpatient (CLI) | payer BC, SELFPAY ==
[2023-07-13 09:57] LABS: Absolute Lymphocyte Count 1.51 X10^3/uL (0.83-4.51); Absolute Neutrophil Count 2.6 X10^3/uL (2.0-7.7); Basophil# 0.04 X10^3/uL; Basophil% 0.8 % (0-1); Eosinophil# 0.16 X10^3/uL; Eosinophils% 3.4 % (0-5); Hematocrit 40.5 % (37-47); Lymphocyte # 1.51 X10^3/ul (0.83-4.51); Lymphocyte % 31.7 % (19-41); Mean Corp Hgb Conc 32.1 g/dL (32-36); Mean Corpuscular Hgb 30.7 pg (27.0-32.0); Mean Corpuscular Volume 95.5 fL (81-99); Mean Platelet Vol. 11.1 fl (6.2-12.0); Monocyte# 0.44 X10^3/uL; Monocyte% 9.2 % (0-10); NRBC Flagged by Analyzer 0 % (0-5); Neutrophil # 2.61 X10^3/uL (2.7-7.7); Neutrophil % 54.7 % (47-70); Platelet Count 229 K/mm3 (150-450); RBC Distribution Width CV 15.2 % (11.6-14.6); RBC Distribution Width SD 52.7 fl (35.1-43.9); Red Blood Count 4.24 M/mm3 (4.2-5.4); White Blood Count 4.8 K/mm3 (4.4-11.0)
[2023-07-13 10:48] LABS: AST(SGOT) 23 U/L (15-37); Alanine Aminotransfer ALT/SGPT 32 U/L (13-56); Albumin, Serum 3.3 g/dL (3.2-5.0); Alkaline Phosphatase 84 U/L (45-117); Anion Gap 8 (5-15); BUN 12 mg/dL (7-18); BUN/Creat Ratio 15.1 RATIO (10-20); Calcium,Total 8.8 mg/dL (8.5-10.1); Chloride 109 mmol/L (98-107); EST Glomerular Filtration Rate 78 mL/min (>60); Est Glom Filt Rate - Afr Amer 94 mL/min (>60); Globulin 3.2 g/dL (2.2-4.2); Glucose 109 mg/dL (74-106); Potassium 3.7 mmol/L (3.5-5.1); Protein, Total 6.5 g/dL (6.4-8.2); Sodium Level 143 mmol/L (136-145)
== END | disposition home or self-care (01) ==
PROVIDERS: PCP Internal Medicine; Referring Provider Internal Medicine Rheumatology; Visit Provider Internal Medicine Rheumatology
DX: M05.70 Rheumatoid arthritis with rheumatoid factor of unspecified site without organ or systems involvement (principal); Z79.899 Other long term (current) drug therapy
CPT/HCPCS: 36415; 80053; 85025

== ENCOUNTER → 2023-10-06 | Outpatient (CLI) | payer BC, SELFPAY ==
--- OUTSIDE RECORDS SUMMARY | 2023-10-06 09:13 | XMS RPT_ITS | CCD ---
Author Name Unknown Address [address] [place] [address] [id number] [place] [address] Organization [facility] Care Team Providers Care Medical Collections Specialist Name Role Phone Katiana Griffith Unavailable Unavailable Katiana Griffith Unavailable Unavailable Katiana Griffith Unavailable Unavailable Katiana Griffith Unavailable Unavailable Katiana Griffith Unavailable Unavailable Katiana Griffith Unavailable Unavailable Katiana Griffith Unavailable Unavailable Katiana Griffith Primary Care Provider [phone] EASTON BACK Attending Unavailable DANILO, KAILEE GARLAND Consulting Unavaila ble DANILO, KAILEE GARLAND Admitting Unavaila KATIANA Schneider Primary Care Unavailable LIN ORTEGA Referring Unavail able LAN COOK Consulting Unavaila Ashley Adames MD Primary Care Provider [phone] Ashley Melendrez MD Primary Care Provider [phone] Neela, Dr. Jerrell Bautista Referring Rony South, Dr. Jerrell Bautista Attending Rony South, Dr. Jerrell Bautista Admitting Dr. Ashley Rahman Primary Care Unavailable JERRELL SOUTH Attending Unavailable JERRELL SOUTH Referring Unavailable JAY MELENDREZBE Светлана Primary Care Unavailable JERRELL SOUTH Attending Unavailable RICO MELENDREZONGBE Светлана Primary Care Unavailable DIANN BANKS Attending UnavailJAY ChavezBE Светлана Primary Care Unavailable DIANN BANKS Attending UnavailRICO ChavezONGBE Светлана Primary Care Unavailable DIANN BANKS Attending JERRELL Lira Referring Unavailable MERRILL EFCALVINONGBE B Primary Care Unavailable DIANN BANKS Attending JERRELL Lira Referring Unavailable MERRILL EFCALVINONGBE B Primary Care Unavailable DIANN BANKS Attending JERRELL Lira Referring Unavailable MERRILL EFCALVINONGBE B Primary Care Unavailable JERRELL SOUTH Attending Unavailable FRANCISCARICO PINZONONGBE Светлана Primary Care Unavailable Ashley Melendrez MD Primary Care Prov ider Medications Current Medications Medication Drug Class(es) Dates Sig (Normalized) Sig (Original) 200 actuat albuterol 0.09 mg/actuat metered dose inhaler (1 source) beta2-Adrenergic Agonist Start: 08-24-2020 End: 08-24-2021 take 2 puff(s) by inhalation every six hours as needed for cough albuterol (Ventolin HFA) 90 mcg/actuation inhaler Indications: Cough Inhale 2 (two) puffs every 6 (six) hours as needed for wheezing, shortness of breath or cough . 1 Inhaler 0 08/24/2020 08/24/2021 Active dexamethasone 6 mg oral tablet (3 sources) Corticosteroid Start: 09-02-2020 End: 09-06-2020 take 1 tablet by mouth once daily at breakfast dexAMETHasone (DECADRON) 6 MG tablet Take 1 (one) tablet (6 mg total) by mouth daily with breakfast for 4 days . 4 tablet 0 09/02/2020 09/06/2020 Active Completed/Discontinued Medications Medication Drug Class(es) Dates Sig (Normalized) Sig (Original) acetaminophen 325 mg oral tablet (1 source) Start: 08-27-2020 End: 09-02-2020 take 1 tablet by mouth every six hours as needed 650 mg, Oral, Every 6 hours PRN, headaches, Starting 08/27/20 at 1627 albuterol inhaler 2 puff (2 sources) Start: 08-28-2020 End: 09-02-2020 albuterol inhaler 2 puff Problems Active Problems Problem Classification Problem Date Documented Da te Episodic/Chronic Cataract (20 sources) Bilateral senile combined form cataracts of eyes; Translations: [Combined forms of age-related cataract, bilateral] Onset: 01-08-2023 Chronic Other eye disorders (4 sources) H/O: R cataract extraction; Translations: [Cataract extraction status, right eye] Onset: 03-13-2023 03-13-2023 Episodic Other lower respiratory disease (1 source) Hypoxia; Translations: [Hypoxia] Episodic Pneumonia (except that caused by tuberculosis or sexually transmitted disease) (1 source) Infective pneumonia; Translations: [Pneumonia of both lungs due to infectious organism, unspecified part of lung] Episodic Retinal detachments; defects; vascular occlusion; and retinopathy (6 sources) Myopic macular degeneration of bilateral eyes; Translations: [Unspecified macular degeneration] Onset: 01-26-2023 Chronic Rheumatoid arthritis and related disease (6 sources) 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; Translations: [Rheumatoid arthritis with rheumatoid factor of unspecified shoulder without organ or systems involvement] Onset: 01-26-2023 Chronic Unclassified (3 sources) COVID-19; Translations: [COVID-19] Onset: 08-27-2020 08-27-2020 Past or Other Problems Problem Classification Problem Date Documented Da te Episodic/Chronic Blindness and vision defects (20 sources) Myopia; Translations: [Myopia, unspecified eye] Onset: 12-18-2014 12-18-2014 Episodic Other aftercare (8 sources) Patient encounter status; Translations: [Other half-way (current) drug therapy] Onset: 01-08-2023 Episodic Other eye disorders (7 sources) Dry eyes; Translations: [Dry eye syndrome of bilateral lacrimal glands] Onset: 01-08-2023 Episodic Results Test Name Value Interpretation Reference Range Facil ity Vital Signs Date Time Vital Sign Value Performing Clinician Facility 03-09-2023 13:40-0400 Body height 167.4 cm Jerrell South MD Work Phone: [facility] 03-09-2023 13:40-0400 Body mass index (BMI) [Ratio] 37.47 kg/m2 Jerrell South MD Work Phone: [facility] 03-09-2023 13:40-0400 Body weight 105 kg Jerrell South MD Work Phone: [facility] 03-06-2023 15:09-0400 Diastolic blood pressure 62 mm[Hg] Jerrell South MD Work Phone: [facility] 03-06-2023 15:09-0400 Heart rate 60 /min Jerrell South MD Work Phone: [facility] 03-06-2023 15:09-0400 Systolic blood pressure 120 mm[Hg] Jerrell South MD Work Phone: [facility] 01-26-2023 14:12-0400 Diastolic blood pressure 62 mm[Hg] Jerrell South MD Work Phone: [facility] 01-26-2023 14:12-0400 Heart rate 60 /min Jerrell South MD Work Phone: [facility] 01-26-2023 14:12-0400 Systolic blood pressure 120 mm[Hg] Jerrell South MD Work Phone: [facility] 09-02-2020 11:55-0500 Body Temperature 97.5 [degF] [facility] 09-02-2020 11:55-0500 BP Diastolic 51 mm[Hg] [facility] 09-02-2020 11:55-0500 BP Systolic 115 mm[Hg] [facility] 09-02-2020 11:55-0500 Pulse (Heart Rate) 72 /min [facility] 09-02-2020 11:55-0500 Pulse Oximetry 92 % [facility] 09-02-2020 11:55-0500 Respiratory Rate 16 /min [facility] 09-02-2020 06:37-0500 BMI (Body Mass Index) 36.08 kg/m2 [facility] 09-02-2020 06:37-0500 Body weight 101.4 kg [facility] 08-28-2020 06:00-0500 Height 167.6 cm [facility] 08-28-2020 04:35-0500 Respiratory rate 0 /min [facility] Encounters Encounter Date Encounter Type Care Provider Facility Start: 04-30-2023 End: 04-30-2023 ambulatory DIANN BANKS Facility:[facility] Start: 04-30-2023 End: 04-30-2023 Patient encounter procedure Diann Banks OD Work Phone: Optometry Procedures Date Procedure Procedure Detail Performing Clinician Start: 01-26-2023 Fundus photography w/interpretation & report Jerrell South MD Work Phone: Start: 01-26-2023 IOL BIOMETRY W/ IOL CALC OU (BOTH EYES) Jerrell South MD Work Phone: Start: 01-14-2023 Visual field xm uni/bi w/interp extended exam Diann Banks OD Work Phone: Start: 09-02-2020 D-dimer assay, quantitative Bailey Neri Work Phone: Start: 09-02-2020 C reactive protein [Mass/volume] in Serum or Plasma Arnold Hardin Work Phone: Start: 09-02-2020 Complete blood count with white cell differential, automated Bailey Neri Work Phone: Start: 09-02-2020 Complete blood count with white cell differential, manual Bailey Neri Work Phone: Start: 09-02-2020 Erythrocyte sedimentation rate by Westergren method Bailey Neri Work Phone: Start: 09-02-2020 Ferritin [Mass/volume] in Serum or Plasma Bailey Neri Work Phone: Start: 09-02-2020 Lactate dehydrogenase [Enzymatic activity/volume] in Serum or Plasma by Lactate to pyruvate reaction Bailey Neri Work Phone: Start: 09-01-2020 C reactive protein [Mass/volume] in Serum or Plasma Arnold Hardin Work Phone: Start: 09-01-2020 Complete blood count with white cell differential, automated Bailey Neri Work Phone: Start: 09-01-2020 Complete blood count with white cell differential, manual Bailey Neri Work Phone: Start: 09-01-2020 D-dimer assay, quantitative Bailey Neri Work Phone: Start: 09-01-2020 Erythrocyte sedimentation rate by Westergren method Bailey Neri Work Phone: Start: 09-01-2020 Ferritin [Mass/volume] in Serum or Plasma Bailey Neri Work Phone: Start: 09-01-2020 Lactate dehydrogenase [Enzymatic activity/volume] in Serum or Plasma by Lactate to pyruvate reaction Bailey Neri Work Phone: Start: 08-31-2020 C reactive protein [Mass/volume] in Serum or Plasma Arnold Hardin Work Phone: Start: 08-31-2020 Complete blood count with white cell differential, automated Bailey Neri Work Phone: Start: 08-31-2020 Complete blood count with white cell differential, manual Bailey Neri Work Phone: Start: 08-31-2020 Comprehensive metabolic 2000 panel - Serum or Plasma Arnold Hardin Work Phone: Start: 08-31-2020 D-dimer assay, quantitative Bailey Neri Work Phone: Start: 08-31-2020 Erythrocyte sedimentation rate by Westergren method Bailey Neri Work Phone: Start: 08-31-2020 Ferritin [Mass/volume] in Serum or Plasma Bailey Neri Work Phone: Start: 08-31-2020 Lactate dehydrogenase [Enzymatic activity/volume] in Serum or Plasma by Lactate to pyruvate reaction Bailey Neri Work Phone: Start: 08-30-2020 C reactive protein [Mass/volume] in Serum or Plasma Arnold Hardin Work Phone: Start: 08-30-2020 Complete blood count with white cell differential, automated Bailey Neri Work Phone: Start: 08-30-2020 Complete blood count with white cell differential, manual Bailey Neri Work Phone: Start: 08-30-2020 Comprehensive metabolic 1999 panel - Serum or Plasma Arnold Hardin Work Phone: Start: 08-30-2020 D-dimer assay, quantitative Bailey Neri Work Phone: Start: 08-30-2020 Erythrocyte sedimentation rate by Westergren method Bailey Neri Work Phone: Start: 08-30-2020 Ferritin [Mass/volume] in Serum or Plasma Bailey Neri Work Phone: Start: 08-30-2020 Lactate dehydrogenase [Enzymatic activity/volume] in Serum or Plasma by Lactate to pyruvate reaction Bailey Neri Work Phone: Start: 08-29-2020 C reactive protein [Mass/volume] in Serum or Plasma Arnold Hardin Work Phone: Start: 08-29-2020 Complete blood count with white cell differential, automated Bailey Neri Work Phone: Start: 08-29-2020 Complete blood count with white cell differential, manual Bailey Neri Work Phone: Start: 08-29-2020 Comprehensive metabolic 1999 panel - Serum or Plasma Arnold Hardin Work Phone: Start: 08-29-2020 D-dimer assay, quantitative Bailey Neri Work Phone: Start: 08-29-2020 Erythrocyte sedimentation rate by Westergren method Bailey Neri Work Phone: Start: 08-29-2020 Ferritin [Mass/volume] in Serum or Plasma Bailey Neri Work Phone: Start: 01-27-2021 Lactate dehydrogenase [Enzymatic activity/volume] in Serum or Plasma by Lactate to pyruvate reaction Bailey Neri Work Phone: Start: 08-29-2020 Manual Differential panel - Blood Bailey Neri Work Phone: Start: 08-29-2020 Red blood cell morphology Bailey tejeda Work Phone: Start: 08-28-2020 Electrocardiogram Provider Not In Syst em Start: 08-28-2020 C reactive protein [Mass/volume] in Serum or Plasma Arnold Hardin Work Phone: Start: 08-28-2020 Complete blood count with white cell differential, automated Bailey Neri Work Phone: Start: 08-28-2020 Complete blood count with white cell differential, manual Bailey Neri Work Phone: Start: 08-28-2020 Comprehensive metabolic 2000 panel - Serum or Plasma Arnold Hardin Work Phone: Start: 08-28-2020 D-dimer assay, quantitative Bailey Neri Work Phone: Start: 08-28-2020 Erythrocyte sedimentation rate by Westergren method Bailey Neri Work Phone: Start: 08-28-2020 Ferritin [Mass/volume] in Serum or Plasma Bailey Neri Work Phone: Start: 08-28-2020 Lactate dehydrogenase [Enzymatic activity/volume] in Serum or Plasma by Lactate to pyruvate reaction Bailey Neri Work Phone: Start: 08-28-2020 Manual Differential panel - Blood Bailey eNri Work Phone: Start: 08-28-2020 Natriuretic peptide.B prohormone N-Terminal [Mass/volume] in Serum or Plasma Bailey Neri Work Phone: Start: 08-28-2020 Red blood cell morphology Bailey tejeda Work Phone: Start: 08-28-2020 Vitamin D, 1,25-dihydroxy measurement Bailey Neri Work Phone: Start: 08-28-2020 Radiologic exam chest single view Bailey Neri Work Phone: Start: 08-28-2020 Evaluation of arterial blood gas studies Kailee Balderas Work Phone: Start: 08-28-2020 OBTAIN ARTERIAL BLOOD GASES AND PERFORM Bailey Neri Work Phone: Start: 08-27-2020 Urinalysis Ester Orozco Work Phone: Start: 08-27-2020 CT angiography of pulmonary artery Ester Orozco Work Phone: Start: 08-27-2020 Radiologic exam chest single view Ester Orozco Work Phone: Start: 08-27-2020 12 lead ECG Ester Orozco Work Phone: Start: 08-27-2020 C reactive protein [Mass/volume] in Serum or Plasma Arnold Hardin Work Phone: Start: 08-27-2020 Complete blood count with white cell differential, automated Ester Orozco Work Phone: Start: 08-27-2020 Complete blood count with white cell differential, manual Ester Orozco Work Phone: Start: 08-27-2020 Comprehensive metabolic 2000 panel - Serum or Plasma Ester Orozco Work Phone: Start: 08-27-2020 INR in Platelet poor plasma by Coagulation assay Ester Orozco Work Phone: Start: 08-27-2020 LIGHT BLUE TOP Ester Orozco Work Phone: Start: 08-27-2020 End: 08-27-2020 Natriuretic peptide.B prohormone N-Terminal [Mass/volume] in Serum or Plasma Ester Orozco Work Phone: Start: 08-27-2020 RAINBOW DRAW Ester Orozco Work Phone: Start: 08-27-2020 Troponin measurement Ester Orozco Work Phone: Start: 08-24-2020 Adult depression screening assessment Ester Orozco Start: 05-29-2020 Follow-up visit Start: 04-17-2020 Mammography Jerrell South MD Work Phone: Start: 12-17-2012 Colonoscopy Jerrell South MD Work Phone: Plan of Treatment Date Care Activity Detail Author Start: 05-04-2025 DTaP/Tdap/Td Vaccines (2 - Tdap) DTaP/Tdap/Td Vaccines (2 - Tdap) [facility] Start: 04-03-2023 Influenza vaccination [facility] Start: 12-17-2022 Screening for malignant neoplasm of colon [facility] Start: 10-13-2022 Covid-19 Vaccine (5 - Pfizer risk series) Covid-19 Vaccine (5 - Pfizer risk series) [facility] Start: 08-03-2022 DEPRESSION ASSESSMENT DEPRESSION ASSESSMENT [facility] Start: 08-24-2021 Adolescent depression screening assessment Depression Screening (PHQ9) [facility] Start: 04-17-2021 Screening for malignant neoplasm of breast Mammogram [facility] Start: 04-03-2020 Influenza vaccination given Sequential Influenza Vaccine (#1) [facility] Start: 2011 Administration of herpes zoster vaccine Zoster Vaccines (1 of 2) [facility] Start: 2011 Screening for malignant neoplasm of colon [facility] Start: 2011 Zoster Vaccines (1 of 2) Zoster Vaccines (1 of 2) [facility] Start: 2006 COLOGUARD (FIT-DNA) COLOGUARD (FIT-DNA) [facility] Start: 2006 Colonoscopy COLONOSCOPY [facility] Start: 2006 COLORECTAL CANCER SCREENING COLORECTAL CANCER SCREENING [facility] Start: [address] COLONOGRAPHY [facility] Start: 2006 DIABETES SCREEN DIABETES SCREEN [facility] Start: 2006 Diabetes Screening Diabetes Screening [facility] Start: 2006 FECAL OCCULT BLOOD FECAL OCCULT BLOOD [facility] Start: 2006 Lipid 1996 panel - Serum or Plasma Lipid Screening [facility] Start: 2006 LIPID SCREEN LIPID SCREEN [facility] Start: 2006 SIGMOIDOSCOPY SIGMOIDOSCOPY [facility] Start: 2001 Mammography [facility] Start: 1991 HPV TESTING HPV TESTING [facility] Start: 1982 PAP TESTING PAP TESTING [facility] Start: 1982 Screening for malignant neoplasm of cervix [facility] Start: 1980 SHINGRIX VACCINE (1 of 2) SHINGRIX VACCINE (1 of 2) [facility] Start: 1980 Urine microalbumin profile [facility] Start: 1979 Diabetes mellitus screening Diabetes Screening [facility] Start: 1979 Hepatitis C antibody, confirmatory test Hepatitis C Screening [facility] Start: 1979 HEPATITIS C SCREENING HEPATITIS C SCREENING [facility] Start: 1979 Hepatitis C screening Hepatitis C Screening [facility] Start: 1979 HIV SCREENING HIV SCREENING [facility] Start: 1976 HIV screening HIV Screening [facility] Start: 1967 PNEUMOCOCCAL (1 - PCV) PNEUMOCOCCAL (1 - PCV) [facility] Start: 1967 Pneumococcal vaccination Pneumococcal Vaccine (1 - PCV) [facility] Start: 1964 History and physical examination, annual for health maintenance Wellness Visit [facility] Start: 1962 MMR Vaccines (1 of 1 - Standard series) MMR Vaccines (1 of 1 - Standard series) [facility] Start: 01-08-1962 COVID-19 Vaccine (#1) COVID-19 Vaccine (#1) [facility] Start: 1961 HIV screening HIV Screening [facility] Start: 1961 Lipid panel Lipid Panel [facility] Start: 1961 Screening for malignant neoplasm of cervix Pap Smear [facility] Start: 1961 Screening for malignant neoplasm of colon [facility] Start: 1961 Screening mammography Mammogram [facility] Start: 1961 Tetanus vaccination Tetanus: Every 10yrs [facility] Start: 1961 Yearly Adult Physical Yearly Adult Physical [facility] Immunizations Immunization Date Immunization Notes Care Provider Lucy rivero 05-28-2020 influenza virus vaccine, unspecified formulation Diann Darren JUDGE Work Phone: [facility] Payers Date Payer Category Payer Unknown VINNY ZHAO/PREF/HMO/PPO [id number] 2019-Present [id number] 2014 Unknown 2014 Unknown [id number] 1961 Unknown [id number] 1961 Unknown [id number] 1961 Unknown [id number] 1961 Unknown [id number] 1961 Unknown [id number] 1961 Unknown [id number] Unknown [id number] Social History Date Type Detail Facility Start: 08-27-2020 Tobacco smoking stat us DCIS Never smoker [facility] Start: 08-27-2020 End: 03-13-2023 Tobacco use and exposure Never used [facility] Start: 08-27-2020 Alcohol intake Ex-drinker (finding) [facility] Start: 1960 Sex Assigned At Not on file [facility] Exposure to SARS-CoV -2 (event) Not sure [facility] Start: 03-22-2021 End: 03-13-2023 Tobacco smoking status NHIS Ex-smoker [facility] History of tobacco use Current smoker [facility] History of tobacco use Cigarette Smoker C [facility] Start: 03-22-2021 End: 04-30-2023 Cigarettes smoked current (pack per day) - Reported 1 [facility] Start: 01-14-2023 End: 04-30-2023 Alcohol intake Current non-drinker of alcohol (finding) [facility] Start: 03-22-2021 End: 01-26-2023 Tobacco use panel [facility] National Score (1-10 0), lower number is lower risk Not on file [facility] Tobacco smoking stat us DCIS Tobacco smoking consumption unknown [facility] Work Phone: Goals Date Patient Goal Desired Activity /State Clinical Notes 01-08-2023 to 04-30-2023 Patient InstructionsCoDiann saleh, ALFIE - 04/30/2023 4:04 PM EDTPatient InstructionsJerrell South MD - 03/13/2023 9:45 AM EDTOp Note - Jerrell South MD - 03/12/2023 10:09 AM EDT Note Date & Type Note Facility 04-30-2023 Note HNO ID: [id number] Author: Diann Banks OD Service: ? Author Type: RADIO ANNOUNCER Type: Progress Notes Filed: 04/30/2023 4:10 PM Note Text: ASSESSMENT/PLAN: 1. Status post cataract extraction and insertion of intraocular lens of right eye - ICD9: V45.61, V43.1, ICD10: Z98.41, Z96.1 Dilated today and retina is flat and intact and she is adjusting to the new glasses. Return in 7-8 months for plaquenil testing. Diann Banks, ALFIE I have confirmed and edited as necessary the relevant ophthalmic history, ROS, and the neuro exam findings as obtained by others. [facility] 04-30-2023 Instructions Diann Banks OD - 04/30/2023 4:07 PM EDT ASSESSMENT/PLAN: 1. Status post cataract extraction and insertion of intraocular lens of right eye - ICD9: V45.61, V43.1, ICD10: Z98.41, Z96.1 Dilated today and retina is flat and intact and she is adjusting to the new glasses. Return in 7-8 months for plaquenil testing. documented in this encounter [facility] 04-30-2023 History of Present illness Narrative ASSESSMENT/PLAN: 1. Status post cataract extraction and insertion of intraocular lens of right eye - ICD9: V45.61, V43.1, ICD10: Z98.41, Z96.1 Dilated today and retina is flat and intact and she is adjusting to the new glasses. Return in 7-8 months for plaquenil testing. Diann Banks OD I have confirmed and edited as necessary the relevant ophthalmic history, ROS, and the neuro exam findings as obtained by others. documented in this encounter [facility] 04-01-2023 Note HNO ID: [id number] Author: Diann Banks OD Service: ? Author Type: RADIO ANNOUNCER Type: Progress Notes Filed: 04/01/2023 4:55 PM Note Text: ASSESSMENT/PLAN: 1. Status post cataract extraction and insertion of intraocular lens of right eye - ICD9: V45.61, V43.1, ICD10: Z98.41, Z96.1 (primary diagnosis) Healing well and happy with the results Current Ophthalmic Meds keTORolac Tromethamine (ACULAR LS) 0.4 % drop Use 1 Drop in the right eye three times daily. prednisoLONE acetate (PRED FORTE) 1 % ophthalmic suspension Use 1 Drop in the right eye three times daily. 2. Myopia of both eyes - ICD9: 367.1, ICD10: H52.13 3. Regular astigmatism of both eyes - ICD9: 367.21, ICD10: H52.223 4. Presbyopia - ICD9: 367.4, ICD10: H52.4 Updating her glasses after her cataract surgery. Return in 4 weeks for PO and recheck rx. Diann Banks OD I have confirmed and edited as necessary the relevant ophthalmic history, ROS, and the neuro exam findings as obtained by others. [facility] 03-17-2023 Note HNO ID: [id number] Author: Diann Banks, ALFIE Service: ? Author Type: RADIO ANNOUNCER Type: Progress Notes Filed: 03/17/2023 4:58 PM Note Text: ASSESSMENT/PLAN: 1. Status post cataract extraction and insertion of intraocular lens of right eye - ICD9: V45.61, V43.1, ICD10: Z98.41, Z96.1 Use medications as directed: Current Ophthalmic Meds keTORolac Tromethamine (ACULAR LS) 0.4 % drop Use 1 Drop in the right eye four times daily for 7 days, then three times daily until 04/16/2023 prednisoLONE acetate (PRED FORTE) 1 % ophthalmic suspension Use 1 Drop in the right eye four times daily for 7 days, then three times daily until 04/16/2023 Systane Complete Artificial Tears - Use 1 Drop into both eyes three times a day. Check prescription in [place] in 2 weeks. Diann Banks, OD I have confirmed and edited as necessary the relevant ophthalmic history, ROS, and the neuro exam findings as obtained by others. [facility] 03-13-2023 Note HNO ID: [id number] Author: Jerrell South MD Service: ? Author Type: Physician Type: Progress Notes Filed: 03/13/2023 10:04 AM Note Text: ASSESSMENT/PLAN: 1. Status post cataract extraction and insertion of intraocular lens of right eye - ICD9: V45.61, V43.1, ICD10: Z98.41, Z96.1 (primary diagnosis) Patient under corrected in the right eye to balance the two eyes, left eye not visually significant Use medications as directed: Current Ophthalmic Meds keTORolac Tromethamine (ACULAR LS) 0.4 % drop Use 1 Drop in the right eye four times daily for 7 days, then three times daily until 04/16/2023 prednisoLONE acetate (PRED FORTE) 1 % ophthalmic suspension Use 1 Drop in the right eye four times daily for 7 days, then three times daily until 04/16/2023 Systane Complete Artificial Tears - Use 1 Drop into both eyes three times a day. Patient to follow up with Dr. Banks in one week 2. Nuclear sclerosis of left eye - ICD9: 366.16, ICD10: H25.12 Not visually significant at this time Jerrell South MD I have confirmed and edited as necessary the relevant ophthalmic history, review of systems, surgical history, and ophthalmological examination findings as obtained by the ophthalmic technical staff. I have seen and examined Kandy Fleming. I have discussed the examination findings, diagnosis, and treatment options with Kandy Fleming and/or her family. I have also reviewed and agree with the assessment and plan as stated above and agree with all its relevant components. I gave the patient the opportunity to ask questions about the findings, diagnosis, and treatment options. [facility] 03-13-2023 Instructions Jerrell South MD - 03/13/2023 9:48 AM EDT Use medications as directed: Current Ophthalmic Meds keTORolac Tromethamine (ACULAR LS) 0.4 % drop Use 1 Drop in the right eye four times daily for 7 days, then three times daily until 04/16/2023 prednisoLONE acetate (PRED FORTE) 1 % ophthalmic suspension Use 1 Drop in the right eye four times daily for 7 days, then three times daily until 04/16/2023 Systane Complete Artificial Tears - Use 1 Drop into both eyes three times a day. If you have any questions please contact our office at [phone]. After office hours or on the weekend, please call Dr. South on his cell phone at [phone]. documented in this encounter [facility] 03-13-2023 History of Present illness Narrative ASSESSMENT/PLAN: 1. Status post cataract extraction and insertion of intraocular lens of right eye - ICD9: V45.61, V43.1, ICD10: Z98.41, Z96.1 (primary diagnosis) Patient under corrected in the right eye to balance the two eyes, left eye not visually significant Use medications as directed: Current Ophthalmic Meds keTORolac Tromethamine (ACULAR LS) 0.4 % drop Use 1 Drop in the right eye four times daily for 7 days, then three times daily until 04/16/2023 prednisoLONE acetate (PRED FORTE) 1 % ophthalmic suspension Use 1 Drop in the right eye four times daily for 7 days, then three times daily until 04/16/2023 Systane Complete Artificial Tears - Use 1 Drop into both eyes three times a day. Patient to follow up with Dr. Banks in one week 2. Nuclear sclerosis of left eye - ICD9: 366.16, ICD10: H25.12 Not visually significant at this time Jerrell South MD I have confirmed and edited as necessary the relevant ophthalmic history, review of systems, surgical history, and ophthalmological examination findings as obtained by the ophthalmic technical staff. I have seen and examined Kandy Fleming. I have discussed the examination findings, diagnosis, and treatment options with Kandy Fleming and/or her family. I have also reviewed and agree with the assessment and plan as stated above and agree with all its relevant components. I gave the patient the opportunity to ask questions about the findings, diagnosis, and treatment options. documented in this encounter [facility] 03-12-2023 Note Post Operative Note: Post-Procedure Diagnosis: 1. Combined Form Age Related Cataract Right Eye Procedure: 1. Cataract Extraction with Intraocular Lens Implant Right Eye Surgeon: Jerrell South MD Resident/Fellow/Other Surgeon/President: None Estimated Blood Loss (mL): none Specimen: no Findings: 1. Combined Form Age Related Cataract Right Eye Operative Report Dictated: Dictation: not applicable - note contains Operative Report Operative Report: The patient was correctly identified and the patient's operative eye was marked with a marking pen and verified with the patient in the pre-operative area. The operative eye was dilated in the preoperative area. The patient was then taken to the operating room where timeout was performed before starting the procedure. Combined anesthesia with intravenous sedation and topical tetracaine eyedrops were instilled into the right eye. The operative eye was prepped and draped in the standard sterile ophthalmic fashion in preparation for ophthalmic surgery. A Kaitlin wire speculum was then inserted between the eyelids of the right eye and the operating microscope was placed over the right eye. A paracentesis incision was made approximately 30 away from the planned surgical incision site with the help of MVR blade. 1% lidocaine MPF with Phenylephrine 1.5% PF was injected into the anterior chamber through the paracentesis incision. A near limbal clear corneal incision was fashioned in the temporal quadrant just outside the vascular arcade and Viscoat was injected into anterior chamber to firm the eye. A bent needle cystotome was used and Utrata forceps were utilized to create a continuous curvilinear capsulorrhexis. BSS was injected beneath the anterior capsule to hydrodissect the nucleus from adjacent cortex and capsule. The residual cortex was then aspirated with irrigation/aspiration handpiece. The posterior capsule was then polished with the help of soft irrigation-aspiration tip. Provisc viscoelastic was then injected into the eye to reform the anterior chamber and to open the capsular bag. The intraocular lens implant was taken from its sterile wrapping, inspected under the surgical microscope and found to be in good condition. The intraocular lens implant 16.0D was injected into the capsule bag. The Provisc was then aspirated from the anterior chamber and from behind the intraocular lens implant. The anterior chamber was inflated with the help of BSS to moderate tension. And the edges of the surgical incision were then hydrated with the help of BSS. Vigamox was then injected into the anterior chamber and into the capsule bag through the paracentesis incision. The surgical wound was then inspected and found to be watertight. The wire speculum and drapes were then removed. Pred Forte eyedrops, Acular eyedrops and Betadine 5% sterile ophthalmic solution were instilled in the conjunctival sac. The patient tolerated the procedure well and was taken to recovery room in stable condition. The patient is high myopic and only needing cataract surgery at this time in the right eye and the left eye is 20/25, the surgical eye was under corrected to prevent diplopia. Attestation: Note Completion: Attending AttestationI performed the procedure without a resident Electronic Signatures: Jerrell South) (Signed 12-Mar-2023 11:15) Authored: Post Operative Note, Note Completion Last Updated: 12-Mar-2023 11:15 by Jerrell South) [facility] 03-12-2023 Note History & Physical R eviewed: I have reviewed the History and Physical dated: 06-Mar-2023 History and Physical reviewed and relevant findings noted. Patient examined to review pertinent physical findings.: No significant changes Home Medications Reviewed: no changes noted Allergies Reviewed: no changes noted ERAS (Enhanced Recovery After Surgery): ERAS Patient: no Consent: COVID-19 Consent: COVID-19 Risk ConsentSurgeon has reviewed bray risks related to the risk of syed COVID-19 and if they contract COVID-19 what the risks are. Electronic Signatures: Jerrell South) (Signed 12-Mar-2023 08:27) Authored: History & Physical Reviewed, ERAS, Consent, Note Completion Last Updated: 12-Mar-2023 08:27 by Jerrell South) [facility] 03-12-2023 Miscellaneous Notes Post Operative Note: Post-Procedure Diagnosis: 1. Combined Form Age Related Cataract Right Eye Procedure: 1. Cataract Extraction with Intraocular Lens Implant Right Eye Surgeon: Jerrell South MD Resident/Fellow/Other Surgeon/President: None Estimated Blood Loss (mL): none Specimen: no Findings: 1. Combined Form Age Related Cataract Right Eye Operative Report Dictated: Dictation: not applicable - note contains Operative Report Operative Report: The patient was correctly identified and the patient's operative eye was marked with a marking pen and verified with the patient in the pre-operative area. The operative eye was dilated in the preoperative area. The patient was then taken to the operating room where timeout was performed before starting the procedure. Combined anesthesia with intravenous sedation and topical tetracaine eyedrops were instilled into the right eye. The operative eye was prepped and draped in the standard sterile ophthalmic fashion in preparation for ophthalmic surgery. A Kaitlin wire speculum was then inserted between the eyelids of the right eye and the operating microscope was placed over the right eye. A paracentesis incision was made approximately 30 away from the planned surgical incision site with the help of MVR blade. 1% lidocaine MPF with Phenylephrine 1.5% PF was injected into the anterior chamber through the paracentesis incision. A near limbal clear corneal incision was fashioned in the temporal quadrant just outside the vascular arcade and Viscoat was injected into anterior chamber to firm the eye. A bent needle cystotome was used and Utrata forceps were utilized to create a continuous curvilinear capsulorrhexis. BSS was injected beneath the anterior capsule to hydrodissect the nucleus from adjacent cortex and capsule. The residual cortex was then aspirated with irrigation/aspiration handpiece. The posterior capsule was then polished with the help of soft irrigation-aspiration tip. Provisc viscoelastic was then injected into the eye to reform the anterior chamber and to open the capsular bag. The intraocular lens implant was taken from its sterile wrapping, inspected under the surgical microscope and found to be in good condition. The intraocular lens implant 16.0D was injected into the capsule bag. The Provisc was then aspirated from the anterior chamber and from behind the intraocular lens implant. The anterior chamber was inflated with the help of BSS to moderate tension. And the edges of the surgical incision were then hydrated with the help of BSS. Vigamox was then injected into the anterior chamber and into the capsule bag through the paracentesis incision. The surgical wound was then inspected and found to be watertight. The wire speculum and drapes were then removed. Pred Forte eyedrops, Acular eyedrops and Betadine 5% sterile ophthalmic solution were instilled in the conjunctival sac. The patient tolerated the procedure well and was taken to recovery room in stable condition. The patient is high myopic and only needing cataract surgery at this time in the right eye and the left eye is 20/25, the surgical eye was under corrected to prevent diplopia. Attestation: Note Completion: Attending Attestation I performed the procedure without a resident Electronic Signatures: Jerrell South) (Signed 12-Mar-2023 11:15) Authored: Post Operative Note, Note Completion Last Updated: 12-Mar-2023 11:15 by Jerrell South) documented in this encounter [facility] Work Phone: 03-12-2023 Note Formatting of this n ote is different from the original. Post Operative Note: Post-Procedure Diagnosis: 1. Combined Form Age Related Cataract Right Eye Procedure: 1. Cataract Extraction with Intraocular Lens Implant Right Eye Surgeon: Jerrell South MD Resident/Fellow/Other Surgeon/President: None Estimated Blood Loss (mL): none Specimen: no Findings: 1. Combined Form Age Related Cataract Right Eye Operative Report Dictated: Dictation: not applicable - note contains Operative Report Operative Report: The patient was correctly identified and the patient's operative eye was marked with a marking pen and verified with the patient in the pre-operative area. The operative eye was dilated in the preoperative area. The patient was then taken to the operating room where timeout was performed before starting the procedure. Combined anesthesia with intravenous sedation and topical tetracaine eyedrops were instilled into the right eye. The operative eye was prepped and draped in the standard sterile ophthalmic fashion in preparation for ophthalmic surgery. A Kaitlin wire speculum was then inserted between the eyelids of the right eye and the operating microscope was placed over the right eye. A paracentesis incision was made approximately 30 away from the planned surgical incision site with the help of MVR blade. 1% lidocaine MPF with Phenylephrine 1.5% PF was injected into the anterior chamber through the paracentesis incision. A near limbal clear corneal incision was fashioned in the temporal quadrant just outside the vascular arcade and Viscoat was injected into anterior chamber to firm the eye. A bent needle cystotome was used and Utrata forceps were utilized to create a continuous curvilinear capsulorrhexis. BSS was injected beneath the anterior capsule to hydrodissect the nucleus from adjacent cortex and capsule. The residual cortex was then aspirated with irrigation/aspiration handpiece. The posterior capsule was then polished with the help of soft irrigation-aspiration tip. Provisc viscoelastic was then injected into the eye to reform the anterior chamber and to open the capsular bag. The intraocular lens implant was taken from its sterile wrapping, inspected under the surgical microscope and found to be in good condition. The intraocular lens implant 16.0D was injected into the capsule bag. The Provisc was then aspirated from the anterior chamber and from behind the intraocular lens implant. The anterior chamber was inflated with the help of BSS to moderate tension. And the edges of the surgical incision were then hydrated with the help of BSS. Vigamox was then injected into the anterior chamber and into the capsule bag through the paracentesis incision. The surgical wound was then inspected and found to be watertight. The wire speculum and drapes were then removed. Pred Forte eyedrops, Acular eyedrops and Betadine 5% sterile ophthalmic solution were instilled in the conjunctival sac. The patient tolerated the procedure well and was taken to recovery room in stable condition. The patient is high myopic and only needing cataract surgery at this time in the right eye and the left eye is 20/25, the surgical eye was under corrected to prevent diplopia. Attestation: Note Completion: Attending Attestation I performed the procedure without a resident Electronic Signatures: Jerrell South) (Signed 12-Mar-2023 11:15) Authored: Post Operative Note, Note Completion Last Updated: 12-Mar-2023 11:15 by Jerrell South) [facility] Work Phone: 03-12-2023 History and physical note History & Physical Reviewed: I have reviewed the History and Physical dated: 06-Mar-2023 History and Physical reviewed and relevant findings noted. Patient examined to review pertinent physical findings.: No significant changes Home Medications Reviewed: no changes noted Allergies Reviewed: no changes noted ERAS (Enhanced Recovery After Surgery): ERAS Patient: no Consent: COVID-19 Consent: COVID-19 Risk Consent Surgeon has reviewed bray risks related to the risk of syed COVID-19 and if they contract COVID-19 what the risks are. Electronic Signatures: Jerrell South) (Signed 12-Mar-2023 08:27) Authored: History & Physical Reviewed, ERAS, Consent, Note Completion Last Updated: 12-Mar-2023 08:27 by Jerrell South) [facility] Work Phone: 03-12-2023 History and physical note History & Physical Reviewed: I have reviewed the History and Physical dated: 06-Mar-2023 History and Physical reviewed and relevant findings noted. Patient examined to review pertinent physical findings.: No significant changes Home Medications Reviewed: no changes noted Allergies Reviewed: no changes noted ERAS (Enhanced Recovery After Surgery): ERAS Patient: no Consent: COVID-19 Consent: COVID-19 Risk Consent Surgeon has reviewed bray risks related to the risk of syed COVID-19 and if they contract COVID-19 what the risks are. Electronic Signatures: Jerrell South) (Signed 12-Mar-2023 08:27) Authored: History & Physical Reviewed, ERAS, Consent, Note Completion Last Updated: 12-Mar-2023 08:27 by Jerrell South) documented in this encounter [facility] Work Phone: 03-06-2023 Note HNO ID: [id number] Author: Jerrell South MD Service: ? Author Type: Physician Type: Progress Notes Filed: 03/06/2023 3:23 PM Note Text: ASSESSMENT/PLAN: 1. Combined forms of age-related cataract of right eye - ICD9: 366.19, ICD10: H25.811 (primary diagnosis) Cataract Presurgical Documentation Cataract: Right Eye Current Visual Acuity Visual Function: Kandy Fleming states that the decline in vision from the cataract impedes her abilities as listed in the HPI, as well as other activities of daily living. Kandy Fleming has confirmed that she is no longer able to function adequately on a day-to-day basis because of her current visual condition. Further, it is my medical opinion that the cataract is the primary cause, or at least a significantly contributory cause of her visual dysfunction. With uncomplicated cataract surgery and lens implantation, it is my expectation that her visual function and quality of life will improve, significantly. The risks, benefits, alternatives, personnel and complications of cataract surgery with lens implantation were discussed with Kandy Fleming in detail. She appeared to understand and asked that I proceed with plans for surgery. Upon eye examination, patient was found to have a visually significant cataract Right Eye. Discussed cataract surgery with patient and different intraocular lens implant options with patient: basic monofocal intraocular lens implant, Toric intraocular lens implant, and presbyopia correction intraocular lens implant. In my medical opinion, based on medical history and ocular examination, cataract surgery with intraocular lens implant will correct patient's vision and improve quality of patient's daily living activities. Patient wishes to have traditional cataract surgery with basic intraocular lens Right Eye. Patient wishes to have cataract surgery with the option stated above. Patient understands that an intraocular lens implant does not necessarily replace the need for glasses. Patient understands that it is impossible for the surgeon to inform him/her of every possible complication that may occur. The surgeon has answered all of the patient's questions. Patient understands that if he/she has a mature or dense cataract, pseudoexfoliation cataract, or history of use of Flomax, he/she may require the use of Maluyugin Ring and/or Vision Blue during surgery. Patient understands the risks, benefits, and alternatives to surgery. Plan Cataract Surgery with Monofocal Intraocular Lens Implant Right Eye on 03/12/2023 at [facility]. TARGET -4.00 Continue: Systane Complete solution instill 1 drop 3 times daily Both Eyes. PHYSICAL EXAM: Vital Signs: Blood pressure 120/62, pulse 60. Respiratory: Normal breath sounds, no wheezing. CARD: Normal heart sounds 1 AND 2, normal sinus rhythm. 2. Combined forms of age-related cataract of left eye - ICD9: 366.19, ICD10: H25.812 Not visually significant Left Eye. 3. Myopic macular degeneration of both eyes - ICD9: 362.50, ICD10: H35.30 4. High myopia, both eyes - ICD9: 367.1, ICD10: H52.13 Patient was cleared for cataract surgery from a retina standpoint by Dr. Dorantes. 5. Encounter for long-term (current) use of high-risk medication - ICD9: V58.69, ICD10: Z79.899 6. Rheumatoid arthritis involving shoulder with positive rheumatoid factor, unspecified laterality (HCC) - ICD9: 714.0, ICD10: M05.719 Hydroxychloroquine use Indication: Rheumatoid Arthritis No signs of toxicity today on exam OCT (01/08/2023): normal Visual Field 10-2 (01/08/2023): normal left eye, questionable responses possilby due to dry eye or cataract and will repeat in one week Patient has been using plaquenil 200 mg daily twice daily The recommended dosage is the lower of 5 mg/kg/day based on real body weight as described in the most recent [employer] plaquenil screening guidelines Risk factors for toxicity include daily dose and duration of use, renal disease, tamoxifen use, history of retinal or macular disease She is 102.058 kg which gives a maximum safe ophthalmic dose of 512.9 mg daily by real body weight Jerrell South MD I have confirmed and edited as necessary the relevant ophthalmic history, review of systems, surgical history, and ophthalmological examination findings as obtained by the ophthalmic technical staff. I have seen and examined Kandy Fleming. I have discussed the examination findings, diagnosis, and treatment options with Kandy Fleming and/or her family. I have also reviewed and agree with the assessment and plan as stated above and agree with all its relevant components. I gave the patient the opportunity to ask questions about the findings, diagnosis, and treatment options. [facility] 03-06-2023 Instructions Jerrell South MD - 03/06/2023 3:16 PM EDT Plan Cataract Surgery with Monofocal Intraocular Lens Implant Right Eye on 03/12/2023 at [facility]. Continue: Systane Complete solution instill 1 drop 3 times daily Both Eyes. If you have any questions please contact our office at [phone]. After office hours or on the weekend, please call Dr. South on his cell phone at [phone]. documented in this encounter [facility] 03-06-2023 History of Present illness Narrative ASSESSMENT/PLAN: 1. Combined forms of age-related cataract of right eye - ICD9: 366.19, ICD10: H25.811 (primary diagnosis) Cataract Presurgical Documentation Cataract: Right Eye Current Visual Acuity Visual Function: Kandy Fleming states that the decline in vision from the cataract impedes her abilities as listed in the HPI, as well as other activities of daily living. Kandy Fleming has confirmed that she is no longer able to function adequately on a day-to-day basis because of her current visual condition. Further, it is my medical opinion that the cataract is the primary cause, or at least a significantly contributory cause of her visual dysfunction. With uncomplicated cataract surgery and lens implantation, it is my expectation that her visual function and quality of life will improve, significantly. The risks, benefits, alternatives, personnel and complications of cataract surgery with lens implantation were discussed with Kandy Fleming in detail. She appeared to understand and asked that I proceed with plans for surgery. Upon eye examination, patient was found to have a visually significant cataract Right Eye. Discussed cataract surgery with patient and different intraocular lens implant options with patient: basic monofocal intraocular lens implant, Toric intraocular lens implant, and presbyopia correction intraocular lens implant. In my medical opinion, based on medical history and ocular examination, cataract surgery with intraocular lens implant will correct patient's vision and improve quality of patient's daily living activities. Patient wishes to have traditional cataract surgery with basic intraocular lens Right Eye. Patient wishes to have cataract surgery with the option stated above. Patient understands that an intraocular lens implant does not necessarily replace the need for glasses. Patient understands that it is impossible for the surgeon to inform him/her of every possible complication that may occur. The surgeon has answered all of the patient's questions. Patient understands that if he/she has a mature or dense cataract, pseudoexfoliation cataract, or history of use of Flomax, he/she may require the use of Maluyugin Ring and/or Vision Blue during surgery. Patient understands the risks, benefits, and alternatives to surgery. Plan Cataract Surgery with Monofocal Intraocular Lens Implant Right Eye on 03/12/2023 at [facility]. TARGET -4.00 Continue: Systane Complete solution instill 1 drop 3 times daily Both Eyes. PHYSICAL EXAM: Vital Signs: Blood pressure 120/62, pulse 60. Respiratory: Normal breath sounds, no wheezing. CARD: Normal heart sounds 1 & 2, normal sinus rhythm. 2. Combined forms of age-related cataract of left eye - ICD9: 366.19, ICD10: H25.812 Not visually significant Left Eye. 3. Myopic macular degeneration of both eyes - ICD9: 362.50, ICD10: H35.30 4. High myopia, both eyes - ICD9: 367.1, ICD10: H52.13 Patient was cleared for cataract surgery from a retina standpoint by Dr. Dorantes. 5. Encounter for long-term (current) use of high-risk medication - ICD9: V58.69, ICD10: Z79.899 6. Rheumatoid arthritis involving shoulder with positive rheumatoid factor, unspecified laterality (HCC) - ICD9: 714.0, ICD10: M05.719 Hydroxychloroquine use Indication: Rheumatoid Arthritis No signs of toxicity today on exam OCT (01/08/2023): normal Visual Field 10-2 (01/08/2023): normal left eye, questionable responses possilby due to dry eye or cataract and will repeat in one week Patient has been using plaquenil 200 mg daily twice daily The recommended dosage is the lower of 5 mg/kg/day based on real body weight as described in the most recent AAO plaquenil screening guidelines Risk factors for toxicity include daily dose and duration of use, renal disease, tamoxifen use, history of retinal or macular disease She is 102.058 kg which gives a maximum safe ophthalmic dose of 512.9 mg daily by real body weight Jerrell South MD I have confirmed and edited as necessary the relevant ophthalmic history, review of systems, surgical history, and ophthalmological examination findings as obtained by the ophthalmic technical staff. I have seen and examined Kandy Fleming. I have discussed the examination findings, diagnosis, and treatment options with Kandy Fleming and/or her family. I have also reviewed and agree with the assessment and plan as stated above and agree with all its relevant components. I gave the patient the opportunity to ask questions about the findings, diagnosis, and treatment options. documented in this encounter [facility] 01-26-2023 Note HNO ID: [id number] Author: Jerrell South MD Service: ? Author Type: Physician Type: Progress Notes Filed: 01/26/2023 3:33 PM Note Text: ASSESSMENT/PLAN: 1. Combined forms of age-related cataract of right eye - ICD9: 366.19, ICD10: H25.811 (primary diagnosis) Reviewed Dr.Teresa Banks's examination and notes today Blood pressure 120/62, pulse 60. Cataract Presurgical Documentation Cataract: Right eye (OD) Current Visual Acuity Right Eye Distance CC 20/60 Left Eye Distance CC 20/25 Best Corrected Vision Right Eye 20/60- Visual Function: Kandy Fleming states that the decline in vision from the cataract impedes her abilities as listed in the HPI, as well as other activities of daily living. Kandy Fleming has confirmed that she is no longer able to function adequately on a day-to-day basis because of her current visual condition. Further, it is my medical opinion that the cataract is the primary cause, or at least a significantly contributory cause of her visual dysfunction. With uncomplicated cataract surgery and lens implantation, it is my expectation that her visual function and quality of life will improve, significantly. The risks, benefits, alternatives, personnel and complications of cataract surgery with lens implantation were discussed with Kandy Fleming in detail. she appeared to understand and asked that I proceed with plans for surgery. Upon eye examination, patient was found to have a visually significant cataract right eye 03/12/2023. Discussed cataract surgery with patient and different intraocular lens implant options with patient: basic monofocal intraocular lens implant, Toric intraocular lens implant, and presbyopia correction intraocular lens implant. In my medical opinion, based on medical history and ocular examination, cataract surgery with intraocular lens implant will correct patient's vision and improve quality of patient's daily living activities. Patient wishes to have traditional cataract surgery with basic intraocular lens right eye 03/12/2023. Patient wishes to have cataract surgery with the option stated above. Patient understands that an intraocular lens implant does not necessarily replace the need for glasses. Patient understands that it is impossible for the surgeon to inform him/her of every possible complication that may occur. The surgeon has answered all of the patient's questions. Patient understands that if he/she has a mature or dense cataract, pseudoexfoliation cataract, or history of use of Flomax, he/she may require the use of Maluyugin Ring and/or Vision Blue during surgery. Patient understands the risks, benefits, and alternatives to surgery. Patient to have physical/EKG/BMP with Dr. Melendrez prior to cataract surgery 2. Combined forms of age-related cataract of left eye - ICD9: 366.19, ICD10: H25.812 Not visually significant at this time 3. Dry eyes, bilateral - ICD9: 375.15, ICD10: H04.123 Systane Complete 1 drop in both eyes three times daily 4. Myopic macular degeneration of both eyes - ICD9: 362.50, ICD10: H35.30 Stable/observe Patient to have retina clearance prior to cataract surgery 5.High myopia Signs, symptoms of detached retina reviewed with patient Patient to have clearance from retina prior to cataract surgery 6. Encounter for long-term (current) use of high-risk medication - ICD9: V58.69, ICD10: Z79.899 7.. Rheumatoid arthritis involving shoulder with positive rheumatoid factor, unspecified laterality (HCC) - ICD9: 714.0, ICD10: M05.719 Testing was completed by Dr. Diann Banks's office Hydroxychloroquine use - Indication: Rheumatoid Arthritis - no signs of toxicity today on exam - OCT (01/08/2023): normal - Visual Field 10-2 (01/08/2023): normal left eye, questionable responses possilby due to dry eye or cataract and will repeat in one week - has been using plaquenil 200 mg daily twice daily - The recommended dosage is the lower of 5 mg/kg/day based on real body weight or 6.5 mg/kg/day based on ideal body weight as described in the most recent AAO plaquenil screening guidelines - Risk factors for toxicity include daily dose and duration of use, renal disease, tamoxifen use, history of retinal or macular disease - she is 102.058 kg which gives a maximum safe ophthalmic dose of 512.9 mg daily by real body weight Jerrell South MD I have confirmed and edited as necessary the relevant ophthalmic history, review of systems, surgical history, and ophthalmological examination findings as obtained by the ophthalmic technical staff. I have seen and examined Kandy Fleming. I have discussed the examination findings, diagnosis, and treatment options with Kandy Fleming and/or her family. I have also reviewed and agree with the assessment and plan as stated above and agree with all its relevant components. I gave the patient the opportunity to ask questions about the fi (more content not included)... [facility] 01-26-2023 History of Present illness Narrative ASSESSMENT/PLAN: 1. Combined forms of age-related cataract of right eye - ICD9: 366.19, ICD10: H25.811 (primary diagnosis) Reviewed Dr.Teresa Banks's examination and notes today Blood pressure 120/62, pulse 60. Cataract Presurgical Documentation Cataract: Right eye (OD) Current Visual Acuity Right Eye Distance CC 20/60 Left Eye Distance CC 20/25 Best Corrected Vision Right Eye 20/60- Visual Function: Kandy Fleming states that the decline in vision from the cataract impedes her abilities as listed in the HPI, as well as other activities of daily living. Kandy Fleming has confirmed that she is no longer able to function adequately on a day-to-day basis because of her current visual condition. Further, it is my medical opinion that the cataract is the primary cause, or at least a significantly contributory cause of her visual dysfunction. With uncomplicated cataract surgery and lens implantation, it is my expectation that her visual function and quality of life will improve, significantly. The risks, benefits, alternatives, personnel and complications of cataract surgery with lens implantation were discussed with Kandy Fleming in detail. she appeared to understand and asked that I proceed with plans for surgery. Upon eye examination, patient was found to have a visually significant cataract right eye 03/12/2023. Discussed cataract surgery with patient and different intraocular lens implant options with patient: basic monofocal intraocular lens implant, Toric intraocular lens implant, and presbyopia correction intraocular lens implant. In my medical opinion, based on medical history and ocular examination, cataract surgery with intraocular lens implant will correct patient's vision and improve quality of patient's daily living activities. Patient wishes to have traditional cataract surgery with basic intraocular lens right eye 03/12/2023. Patient wishes to have cataract surgery with the option stated above. Patient understands that an intraocular lens implant does not necessarily replace the need for glasses. Patient understands that it is impossible for the surgeon to inform him/her of every possible complication that may occur. The surgeon has answered all of the patient's questions. Patient understands that if he/she has a mature or dense cataract, pseudoexfoliation cataract, or history of use of Flomax, he/she may require the use of Maluyugin Ring and/or Vision Blue during surgery. Patient understands the risks, benefits, and alternatives to surgery. Patient to have physical/EKG/BMP with Dr. Melendrez prior to cataract surgery 2. Combined forms of age-related cataract of left eye - ICD9: 366.19, ICD10: H25.812 Not visually significant at this time 3. Dry eyes, bilateral - ICD9: 375.15, ICD10: H04.123 Systane Complete 1 drop in both eyes three times daily 4. Myopic macular degeneration of both eyes - ICD9: 362.50, ICD10: H35.30 Stable/observe Patient to have retina clearance prior to cataract surgery 5.High myopia Signs, symptoms of detached retina reviewed with patient Patient to have clearance from retina prior to cataract surgery 6. Encounter for long-term (current) use of high-risk medication - ICD9: V58.69, ICD10: Z79.899 7.. Rheumatoid arthritis involving shoulder with positive rheumatoid factor, unspecified laterality (HCC) - ICD9: 714.0, ICD10: M05.719 Testing was completed by Dr. Diann Banks's office Hydroxychloroquine use - Indication: Rheumatoid Arthritis - no signs of toxicity today on exam - OCT (01/08/2023): normal - Visual Field 10-2 (01/08/2023): normal left eye, questionable responses possilby due to dry eye or cataract and will repeat in one week - has been using plaquenil 200 mg daily twice daily - The recommended dosage is the lower of 5 mg/kg/day based on real body weight or 6.5 mg/kg/day based on ideal body weight as described in the most recent AAO plaquenil screening guidelines - Risk factors for toxicity include daily dose and duration of use, renal disease, tamoxifen use, history of retinal or macular disease - she is 102.058 kg which gives a maximum safe ophthalmic dose of 512.9 mg daily by real body weight Jerrell South MD I have confirmed and edited as necessary the relevant ophthalmic history, review of systems, surgical history, and ophthalmological examination findings as obtained by the ophthalmic technical staff. I have seen and examined Kandy Fleming. I have discussed the examination findings, diagnosis, and treatment options with Kandy Fleming and/or her family. I have also reviewed and agree with the assessment and plan as stated above and agree with all its relevant components. I gave the patient the opportunity to ask questions about the findings, diagnosis, and treatment options. documented in this encounter [facility] 01-26-2023 Instructions Jerrell South MD - 01/26/2023 2:43 PM EDT Continue: Systane Complete Artificial Tears - Use 1 Drop into both eyes three times a day. Patient to have physical, EKG and basic metabolic panel- form given to patient to give to Dr. Melendrez. documented in this encounter [facility] documented as of this encounter (statuses as of 03/13/2023) [facility]06-26-2023 History of Past illness Narrative* Problem Noted Date Diagnosed Date Resolved Date Combined forms of age-relate d cataract of both eyes 01/26/2023 03/13/2023 documented as of this encounter (statuses as of 05/01/2023) [facility]06-14-2023 NoteHNO ID: [id number] Author: Diann Banks, ALFIE Service: ? Author Type: RADIO ANNOUNCER Type: Progress Notes Filed: 01/14/2023 5:14 PM Note Text: ASSESSMENT/PLAN: 1. Dry eyes, bilateral - ICD9: 375.15, ICD10: H04.123 (primary diagnosis Continue to use the artificial tears 3-4 times per day. 2. Combined form of senile cataract of both eyes - ICD9: 366.19, ICD10: H25.813 Referral for a cataract evaluation. Repeating the 10-2 of the right eye today. Diann Banks, OD I have confirmed and edited as necessary the relevant ophthalmic history, ROS, and the neuro exam findings as obtained by others.[facility]14[facility] Instructions* Patient Instructions* Diann Banks, OD - 01/14/2023 4:18 PM EDT ASSESSMENT/PLAN: 1. Dry eyes, bilateral - ICD9: 375.15, ICD10: H04.123 (primary diagnosis Continue to use the artificial tears 3-4 times per day. 2. Combined form of senile cataract of both eyes - ICD9: 366.19, ICD10: H25.813 Referral for a cataract evaluation. Repeating the 10-2 of the right eye today. [facility] History of Present illness Narrative* Diann Banks, OD - 01/14/2023 4:16 PM EDT ASSESSMENT/PLAN: 1. Dry eyes, bilateral - ICD9: 375.15, ICD10: H04.123 (primary diagnosis Continue to use the artificial tears 3-4 times per day. 2. Combined form of senile cataract of both eyes - ICD9: 366.19, ICD10: H25.813 Referral for a cataract evaluation. Repeating the 10-2 of the right eye today. Diann Banks, ALFIE I have confirmed and edited as necessary the relevant ophthalmic history, ROS, and the neuro exam findings as obtained by others. [facility] NoteHNO ID: [id number] Author: Diann Banks OD Service: ? Author Type: RADIO ANNOUNCER Type: Progress Notes Filed: 01/08/2023 6:16 PM Note Text: ASSESSMENT/PLAN: 1. Encounter for long-term (current) use of high-risk medication - ICD9: V58.69, ICD10: Z79.899 (primary diagnosis) Hydroxychloroquine use - Indication: Rheumatoid Arthritis - no signs of toxicity today on exam - OCT (01/08/2023): normal - Visual Field 10-2 (01/08/2023): normal left eye, questionable responses possilby due to dry eye or cataract and will repeat in one week - has been using plaquenil 200 mg daily twice daily - The recommended dosage is the lower of 5 mg/kg/day based on real body weight or 6.5 mg/kg/day based on ideal body weight as described in the most recent AAO plaquenil screening guidelines - Risk factors for toxicity include daily dose and duration of use, renal disease, tamoxifen use, history of retinal or macular disease - she is 102.058 kg which gives a maximum safe ophthalmic dose of 512.9 mg daily by real body weight 2. Dry eyes, bilateral - ICD9: 375.15, ICD10: H04.123 Recommended the use of artificial tears four times per day to maintain good vision and comfort. Discussed contacting the office if there is a change in comfort or vision. 3. Combined form of senile cataract of both eyes - ICD9: 366.19, ICD10: H25.813 Reevaluate after she uses the drops. 4. Myopia of both eyes - ICD9: 367.1, ICD10: H52.13 5. Regular astigmatism of both eyes - ICD9: 367.21, ICD10: H52.223 6. Presbyopia - ICD9: 367.4, ICD10: H52.4 Hold on any changes. Return in one week for 10-2 and refraction Diann Banks, OD I have confirmed and edited as necessary the relevant ophthalmic history, ROS, and the neuro exam findings as obtained [facility] others.[facility] Diagnosis Dry eyes, bilateral- Primary Tear film insufficiency, unspecified Combined form of senile cataract of both eyes Encounter for long-term (current) use of high-risk medication Encounter for long-term (current) use of other medications [facility] Combined forms of age-related cataract of right eye- Primary Other and combined forms of senile cataract Combined forms of age-related cataract of left eye Other and combined forms of senile cataract Dry eyes, bilateral Tear film insufficiency, unspecified Myopic macular degeneration of both eyes High myopia, both eyes Myopia Encounter for long-term (current) use of high-risk medication Encounter for long-term (current) use of other medications Rheumatoid arthritis involving shoulder with positive rheumatoid factor, unspecified laterality (HCC) [facility] Diagnosis Combined forms of age-related cataract of right eye- Primary Other and combined forms of senile cataract Combined forms of age-related cataract of left eye Other and combined forms of senile cataract Myopic macular degeneration of both eyes High myopia, both eyes Myopia Encounter for long-term (current) use of high-risk medication Encounter for long-term (current) use of other medications Rheumatoid arthritis involving shoulder with positive rheumatoid factor, unspecified laterality (HCC) Combined form of age-related cataract, right eye [facility] Diagnosis Status post cataract extraction and insertion of intraocular lens of right eye- Primary Nuclear sclerosis of left eye [facility] Diagnosis Status post cataract extraction and insertion of intraocular lens of right eye- Primary [facility] Diagnosis Combined forms of age-related cataract, right eye [facility] Work Phone: Summary Purpose Family History No Family History Records FoundNo Family History Records FoundNo Family History Records FoundNo Family History Records FoundNo Family History Records FoundNo Family History Records Found Advance Directives Documents on File Type Date Recorded Patient [employer] an[employer] Advance Directives and Livin g Will 08/27/2020 12:02 PM Latest Code Status on File Code Status Date Activated Date Inactivated Comments Full Code 08/27/2020 2:37 PM 09/02/2020 5:46 PM Hospital Course * Easton Back MD - 09/02/2020 2:25 PM EST HOSPITALIST DISCHARGE SUMMARY Patient: Kandy Fleming Account: [id number] Admitted: 08/27/2020 Discharge Date/Time: 09/02/2020 Clinical Summary FINAL DIAGNOSIS: Principal Problem: COVID-19 virus infection Acute hypoxic respiratory failure REASON FOR HOSPITALIZATION AND ADMITTING DIAGNOSIS: Shortness of Breath Hypoxia [R09.02] Pneumonia of both lungs due to infectious organism, unspecified part of lung [J18.9] COVID-19 virus infection [U07.1] COVID-19 [U07.1, J98.8] HOSPITAL COURSE: 60-year-old female with no significant past medical history presented with shortness of breath was diagnosed with COVID-19 virus infection acute hypoxic respiratory failure requiring BiPAP initially then switched to high flow. She was started on remdesivir and steroids. She was also given intermittent doses of IV Lasix with improvement. Infectious disease was on board. She was ultimately weaned down to 3 L nasal cannula and was feeling significantly better was very eager to go home. Home oxygenwas set up we will discharge her home on 4 more days of dexamethasone. Continue albuterol puffs as needed. Incentive spirometry at home. CONDITION AT DISCHARGE: Stable Physical Examination: Blood pressure (!) 115/51, pulse 72, temperature 97.5 F (36.4 C), resp. rate 16, height 5' 6 , weight 101.4 kg (223 lb 8.7 oz), SpO2 92 %. General appearance: alert, cooperative, in no acute distress. Head/Neck: Head- normocephalic. Neck- supple, non-tender, without lymphadenopathy Eyes: No Scleral icterus or pallor; EOMI ENT: Trachea midline. Cardiovascular: regular rate and rhythm; normal S1, S2; no murmurs, rubs, clicks or gallops; No/+ peripheral edema. Respiratory: lungs clear to auscultation; without wheezes, rales or rhonchi. Abdomen: soft, non tender, non-distended; positive bowel sounds. Neurological: alert, oriented, normal speech; no focal findings or movement disorder noted. Musculoskeletal: no significant deformity noted. Skin: normal coloration, texture and turgor; no lesions or eruptions. Procedures: No orders of the defined types were placed in this encounter. Consults: Procedures Emergency Department consult to Medical - [facility] Hospitalize Patient To : Inpatient consult to Infectious Diseases Inpatient consult to IV Team Other Tests: No orders of the defined types were placed in this encounter. LAST LABS: Results from last 7 days Lab Units 08/31/20 0437 SODIUM mmol/L 140 POTASSIUM mmol/L 4.7 CHLORIDE mmol/L 107 BUN mg/dL 23 CREATININE mg/dL 0.72 GLUCOSE mg/dL 148* CALCIUM mg/dL 8.6 Results from last 7 days Lab Units 08/31/20 0437 ALK PHOS U/L 77 BILIRUBIN TOTAL mg/dL 0.3 TOTAL PROTEIN g/dL 6.4 ALTR U/L 171* AST U/L 89* Results from last 7 days Lab Units 08/27/20 1035 INR 1.0 Results from last 7 days Lab Units 09/02/20 0524 WBC K/mcL 12.46* HGB g/dL 14.1 HCT % 45.6 PLT K/mcL 533* Allergies: Patient has no known allergies. Discharge Diet: Diet Regular; Regular Disposition: home Discharge Medications Medication List START taking these medications dexAMETHasone 6 MG tablet Commonly known as: DECADRON Take 1 (one) tablet (6 mg total) by mouth daily with breakfast for 4 days . CONTINUE taking these medications albuterol 90 mcg/actuation inhaler Commonly known as: Ventolin HFA Inhale 2 (two) puffs every 6 (six) hours as needed for wheezing, shortness of breath or cough . STOP taking these medications azithromycin 5 day dose pack Commonly known as: Z-ZACHARY Where to Get Your Medications These medications were sent to [facility]/pharmacy #[id number] - [address] [address] dexAMETHasone 6 MG tablet Physician(s) Family: Katiana Griffith MD, , Address: [address] [place] [id number] Follow Up: No follow-up provider specified. Patient instructions, including activity, were given to the patient/family at discharge. Please seethe After Visit Summary in the medical record for details. Time spent on discharge: > 30 minutes Completed by: Easton Back on 09/02/20, 2:25 PM documented in this encounter Discharge Instructions * Instructions* Ernestina Barlow RN - 09/02/2020 Learning About COVID-19 and Flu Symptoms How can you tell COVID-19 from the flu? COVID-19 and the flu have similar symptoms. The two can be hard to tell apart. The only way to knowfor sure which illness you have is to be tested. Since the symptoms are so alike, it makes sense to act as if you have COVID-19 until your test results come back. This means staying home and limiting contact with people in your home. You'll need towash your hands often and disinfect surfaces that you touch. And be sure to wear a mask or face covering when you're around other people. This is also good advice if you think you have the flu. COVID-19 and the flu have these symptoms in common: Fever or chills Cough Shortness of breath Fatigue (tiredness) Sore throat Runny or stuffy nose Muscle pain or body aches Headache Vomiting and diarrhea (more common in children than adults) COVID-19 has another symptom that also may occur: New loss of taste or smell COVID-19 symptoms may appear from 2 to 14 days after infection. Flu symptoms usually appear 1 to 4 days after infection. Why should you get a flu shot during the COVID-19 pandemic? It's important to get your yearly flu vaccine. Both the flu and COVID-19 are expected to be active during flu season. You can get sick with both infections at once. And having both may make you more sick than getting just one. The flu vaccine won't protect you from COVID-19. But it can help prevent the flu or reduce its symptoms. If fewer people get very ill with the flu, this will help free up medical resources that are needed for COVID-19 patients. Where can you learn more? Log into your personal health record on [email or web address] and enter C123 in the Education box to learn more about Learning About COVID-19 and Flu Symptoms. Current as of: May 28, 2020 Content Version: 12.7 [employer]. Care instructions adapted under license by your healthcare professional. If you have questions about a medical condition or this instruction, always ask your healthcare professional. [employer] disclaims any warranty or liability for your use of this information. Learning About Coronavirus (COVID-19) What is coronavirus (COVID-19)? COVID-19 is a disease caused by a new type of coronavirus. This illness was first found in July2019. It has since spread worldwide. Coronaviruses are a large group of viruses. They cause the common cold. They also cause more serious illnesses like [place] respiratory syndrome (MERS) and severe acute respiratory syndrome (SARS). COVID-19 is caused by a novel coronavirus. That means it's a new type that has not been seen in people before. What are the symptoms of coronavirus (COVID-19)? Coronavirus (COVID-19) symptoms may include: Fever. Cough. Trouble breathing. Chills or repeated shaking with chills. Muscle pain. Headache. Sore throat. New loss of taste or smell. Vomiting. Diarrhea. In severe cases, it can cause pneumonia and make it hard to breathe without help from a machine. Itcan cause . How is it diagnosed? COVID-19 is diagnosed with a viral test. The test looks for the genetic material of the virus in cells from your breathing passages or lungs (respiratory system). This may also be called a nucleic acid or antigen test. The test is most often done on a sample from the nose, throat, or lungs. It's sometimes done on a sample of saliva. One way a sample is collected is by putting a long swab into the back of your nose. How is coronavirus (COVID-19) treated? Mild cases of COVID-19 can be treated at home. Serious cases need treatment in the hospital. Treatment may include medicines to reduce symptoms, plus breathing support such as oxygen therapy or a ventilator. Some people may be placed on their belly to help their oxygen levels. For now, there are no FDA-approved treatments that target the virus that causes COVID-19. But thereare treatments that may help people who have COVID-19. These include: Antiviral medicines. These medicines treat viral infections. Remdesivir is an example. Immune-based therapy. One example is convalescent plasma. Plasma is the part of the blood that contains antibodies. When a person gets an infection like COVID-19, their immune system makes antibodies. These help the body fight the infection. Giving COVID- 19 antibodies to people who are sick may help them overcome the infection. Blood thinners. These medicines help prevent blood clots. People with severe illness are at risk for blood clots. How can you protect yourself and others from coronavirus (COVID-19)? The best way to protect yourself from getting sick is to: Avoid areas where there is an outbreak. Avoid contact with people who may be infected. Avoid crowds and try to stay at least 6 feet away from other people. Wash your hands often, especially after you cough or sneeze. Use soap and water, and scrub for at least 20 seconds. If soap and water aren't available, use an alcohol-based hand bat carrier. Avoid touching your mouth, nose, and eyes. To help avoid spreading the virus to others: Stay home if you are sick or have been exposed to the virus. Don't go to school, work, or public areas. And don't use public transportation, ride-shares, or taxis unless you have no choice. Wear a cloth face cover if you have to go to public areas. Cover your mouth with a tissue when you cough or sneeze. Then throw the tissue in the trash and wash your hands right away. If you are sick: ? Leave your home only if you need to get medical care. But call the doctor's office first so they know you're coming. And wear a face cover. ? Wear the face cover whenever you're around other people. It can help stop the spread of the viruswhen you cough or sneeze. ? Limit contact with pets and people in your home. If possible, stay in a separate bedroom and use a separate bathroom. ? Clean and disinfect your home every day. Use household yarn preparation supervisor and disinfectant wipes or sprays.Take special care to clean things that you grab with your hands. These include doorknobs, remote controls, phones, and handles on your refrigerator and microwave. And don't forget countertops, tabletops, bathrooms, and computer keyboards. When should you call for help? Call 911 anytime you think you may need emergency care. For example, call if you have life-threatening symptoms, such as: You have severe trouble breathing. (You can't talk at all.) You have constant chest pain or pressure. You are severely dizzy or lightheaded. You are confused or can't think clearly. Your face and lips have a blue color. You pass out (lose consciousness) or are very hard to wake up. Call your doctor now or seek immediate medical care if: You have moderate trouble breathing. (You can't speak a full sentence.) You are coughing up blood (more than about 1 teaspoon). You have signs of low blood pressure. These include feeling lightheaded; being too weak to stand; and having cold, pale, clammy skin. Watch closely for changes in your health, and be sure to contact your doctor if: Your symptoms get worse. You are not getting better as expected. Call before you go to the doctor's office. Follow their instructions. And wear a cloth face cover. Current as of: April 17, 2020 Content Version: 12.7 [employer]. Care instructions adapted under license by your healthcare professional. If you have questions about a medical condition or this instruction, always ask your healthcare professional. [employer] disclaims any warranty or liability for your use of this information. documented in this encounter History of Present Illness * Lan Cook MD - 09/02/2020 2:51 PM EST Patient Name: Kandy Fleming Admit Date: [id number] MR #: [id number] : 1960 Physicians: Katiana Griffith MD (Family); Lin Ortega* (Referring) Assessment: Patient with COVID-19, and pneumonia 2. Respiratory failure 3. Fever 4. Leukocytosis. Plan. Continue patient on current therapy Patient currently on high flow nasal cannula Patient on dexamethasone intravenous Status post complete patient on remdesivir Patient on zinc sulfate I reviewed labs I reviewed LDH, ESR, C-reactive protein, D-dimer level, ferritin level, D-dimer of 3.66 C-reactive protein of 9.1. I encouraged patient to sleep prone positioning if possible We will continue to follow with you. Subjective: Patient states that she continues to improve, still on nasal cannula oxygen, currently on 3 L saturating at 92%. Temperature has been 97.5. Exam: PACU Vitals 09/02/20 1155 BP: (!) 115/51 Pulse: 72 Resp: 16 Temp: 97.5 F (36.4 C) SpO2: 92% Allergies: Patient has no known allergies. Current Facility-Administered Medications: acetaminophen (TYLENOL) tablet 650 mg, 650 mg, Oral, Q6H PRN, Arnold Hardin CNP, 650 mg at 08/27/20 1813 albuterol inhaler 2 puff, 2 puff, Inhalation, Q4H PRN, Bailey Neri CNP albuterol inhaler 2 puff, 2 puff, Inhalation, 4x daily, Bailey Neri CNP, 2 puff at 09/02/20 1157 aluminum-magnesium hydroxide-simethicone (MAALOX PLUS) 200-200-20 mg/5 mL suspension 30 mL, 30 mL, Oral, TID PRN, Gilda Damon CNP, 30 mL at 09/01/20 2124 dexamethasone (DECADRON) injection 6 mg, 6 mg, Intravenous, Q24H FRIDA, Arnold Hardin CNP, 6 mg at 09/02/20 0817 enoxaparin (LOVENOX) syringe 40 mg, 40 mg, Subcutaneous, Daily, Arnold Hardin CNP, 40 mg at 09/02/20816 ondansetron (ZOFRAN) injection 4 mg, 4 mg, Intravenous, Q6H PRN, Arnold Hardin CNP zinc sulfate (ZINCATE) capsule 220 mg, 220 mg, Oral, Daily, Bailey Yara Neri CNP, 220 mg at 09/02/20 0817 PMH/PSH/SH/FH reviewed, no change : Review of Systems: All systems were reviewed no change: Medications Reviewed. Chart Reviewed. Exam Findings: Neck: Supple, no rigidity Chest: Symmetrical, on nasal cannula oxygen. CVS: Normal S1 & S2+, Normal Rhythm Abdomen: Normal symmetry, Extremities: No Deformities or Edema Skin: Intact & No Rashes, or excoriations Musculoskeletal: No joint swelling, non tender GENERAL ENGINEER: Awake, and Ox3, sitting on a chair today. Wound: None Anaya Catheter: None IV Access: Yes I reviewed Medications. I reviewed Labs. Laboratory and Additional Data Reviewed: Laboratory 09/02/20 2:51 PM Microbiology 09/02/20 2:51 PM Radiology 09/02/20 2:51 PM XR Chest 1 View Final Result Bilateral pulmonary infiltrates unchanged. [facility] Workstation ID: [id number] CT Pulmonary Arteries Final Result No evidence of pulmonary embolism or aortic dissection. Extensive bilateral multilobar pneumonia. Mediastinal and hilar lymphadenopathy, favored to be reactive. Recommend 3-month follow-up. Small hiatal hernia. /[employer] Workstation ID: [id number] XR Chest 1 View Final Result Bilateral perihilar infiltrates left greater than right. Follow-up until complete resolution is suggested. Workstation ID: [id number] Medications 09/02/20 2:51 PM Lab Results Component Value Date WBC 12.46 (H) 09/02/2020 HGB 14.1 09/02/2020 HCT 45.6 09/02/2020 MCV 91.4 09/02/2020 PLT 533 (H) 09/02/2020 Lab Results Component Value Date GLUCOSE 148 (H) 08/31/2020 CALCIUM 8.6 08/31/2020 NA 140 08/31/2020 K 4.7 08/31/2020 CL 107 08/31/2020 BUN 23 08/31/2020 CREATININE 0.72 08/31/2020 Problem List Items Addressed This Visit Other * (Principal) COVID-19 virus infection Other Visit Diagnoses Pneumonia of both lungs due to infectious organism, unspecified part of lung - Primary Relevant Medications albuterol inhaler 2 puff albuterol inhaler 2 puff COVID-19 Hypoxia Relevant Medications albuterol inhaler 2 puff albuterol inhaler 2 puff I discussed my management plans with Patient/and or Family member, and also discussed antibiotics therapy including side effects with Patient/and or Family member. Medical Decision Making: Moderate This note is created with the assistance of a speech-recognition program. While intending to generate a document that actually reflects the content of the visit, the document can still have some errors including those of syntax and sound a- like substitutions which may escape proofreading. In such instances, actual meaning can be extrapolated by contextual derivation. * Lan Cook MD - 09/01/2020 6:33 PM EST Patient Name: Kandy Fleming Admit Date: [id number] MR #: [id number] : 1960 Physicians: Katiana Griffith MD (Family); Lin Ortega* (Referring) Assessment: Patient with COVID-19, and pneumonia 2. Respiratory failure 3. Fever Plan. Continue patient on current therapy Patient currently on high flow nasal cannula Patient on dexamethasone intravenous Status post complete patient on remdesivir Patient on zinc sulfate I reviewed labs I reviewed LDH, ESR, C-reactive protein, D-dimer level, ferritin level, D-dimer is still 4.33, C-reactive protein of 14.4. I encouraged patient to sleep prone positioning if possible We will continue to follow with you. Subjective: Ms. Gutierrez had felt much better today, though still on nasal cannula oxygen, saturatingat 95% on 6 L. T-max has been 97.3. She was cheerful. No fever no chills. Exam: PACU Vitals 09/01/20 1628 BP: (!) 101/52 Pulse: 80 Resp: (!) 20 Temp: 96.8 F (36 C) SpO2: 92% Allergies: Patient has no known allergies. Current Facility-Administered Medications: acetaminophen (TYLENOL) tablet 650 mg, 650 mg, Oral, Q6H PRN, Arnold Hardin CNP, 650 mg at 08/27/20 1813 albuterol inhaler 2 puff, 2 puff, Inhalation, Q4H PRN, Bailey Neri CNP albuterol inhaler 2 puff, 2 puff, Inhalation, 4x daily, Bailey Neri CNP, 2 puff at 09/01/20 1627 dexamethasone (DECADRON) injection 6 mg, 6 mg, Intravenous, Q24H FRIDA, Arnold Hardin CNP, 6 mg at 09/01/20 0837 enoxaparin (LOVENOX) syringe 40 mg, 40 mg, Subcutaneous, Daily, Arnold Hardin CNP, 40 mg at 09/01/20 0837 ondansetron (ZOFRAN) injection 4 mg, 4 mg, Intravenous, Q6H PRN, Arnold Hardin CNP zinc sulfate (ZINCATE) capsule 220 mg, 220 mg, Oral, Daily, Bailey Neri CNP, 220 mg at 09/01/20 0837 PMH/PSH// reviewed, no change : Review of Systems: All systems were reviewed no change: Medications Reviewed. Chart Reviewed. Exam Findings: Neck: Supple, no rigidity Chest: Symmetrical, on nasal cannula oxygen. CVS: Normal S1 & S2+, Normal Rhythm Abdomen: Normal symmetry, Extremities: No Deformities or Edema Skin: Intact & No Rashes, or excoriations Musculoskeletal: No joint swelling, non tender GENERAL ENGINEER: Awake, and Ox3, patient resting quietly on the bed. Wound: None Anaya Catheter: None IV Access: Yes I reviewed Medications. I reviewed Labs. Laboratory and Additional Data Reviewed: Laboratory 09/01/20 6:33 PM Microbiology 09/01/20 6:33 PM Radiology 09/01/20 6:33 PM XR Chest 1 View Final Result Bilateral pulmonary infiltrates unchanged. [employer] Workstation ID: [id number] Pulmonary Arteries Final Result No evidence of pulmonary embolism or aortic dissection. Extensive bilateral multilobar pneumonia. Mediastinal and hilar lymphadenopathy, favored to be reactive. Recommend 3-month follow-up. Small hiatal hernia. [employer] Workstation ID: [id number] XR Chest 1 View Final Result Bilateral perihilar infiltrates left greater than right. Follow-up until complete resolution is suggested. Workstation ID: [id number] Medications 09/01/20 6:33 PM Lab Results Component Value Date WBC 11.24 (H) 09/01/2020 HGB 13.0 09/01/2020 HCT 40.8 09/01/2020 MCV 90.1 09/01/2020 PLT 553 (H) 09/01/2020 Lab Results Component Value Date GLUCOSE 148 (H) 08/31/2020 CALCIUM 8.6 08/31/2020 NA 140 08/31/2020 K 4.7 08/31/2020 CL 107 08/31/2020 BUN 23 08/31/2020 CREATININE 0.72 08/31/2020 Problem List Items Addressed This Visit Other * (Principal) COVID-19 virus infection Other Visit Diagnoses Pneumonia of both lungs due to infectious organism, unspecified part of lung - Primary Relevant Medications albuterol inhaler 2 puff albuterol inhaler 2 puff COVID-19 Hypoxia Relevant Medications albuterol inhaler 2 puff albuterol inhaler 2 puff I discussed my management plans with Patient/and or Family member, and also discussed antibiotics therapy including side effects with Patient/and or Family member. Medical Decision Making: Moderate This note is created with the assistance of a speech-recognition program. While intending to generate a document that actually reflects the content of the visit, the document can still have some errors including those of syntax and sound a- like substitutions which may escape proofreading. In such instances, actual meaning can be extrapolated by contextual derivation. * Easton Back MD - 09/01/2020 10:10 AM EST [facility] Medicine Inpatient Follow-up 09/01/2020 Easton Back MD [facility] Patient: Kandy Fleming Date of : 1960 (60 y.o.) PCP: Katiana Griffith MD ASSESSMENT/PLAN: Kandy Fleming 60 y.o. female presented with complains of shortness of breath Principal Problem: COVID-19 virus infection Acute hypoxic respiratory failure Acute pulmonary edema Plan: Improved today, down to 6 L nasal cannula. Another dose of Lasix 20 mg IV today given she still has some crackles. Continue remdesivir and dexamethasone. CRP and ferritin continue to decrease. ID following. Encourage prone positioning, use incentive spirometer. Plan for discharge over next 48 hours. Likely will need home oxygen. SUBJECTIVE: Clinically stable no occasions overnight. All other systems reviewed and negative other than noted above. OBJECTIVE: Physical Examination: BP (!) 101/54 Pulse 70 Temp 96.8 F (36 C) Resp 18 Ht 5' 6 Wt 102.8 kg (226 lb 10.1 oz) SpO2 91% BMI 36.58 kg/m General Appearance: Alert, well appearing, and in no acute distress. HEENT: Head - Normocephalic, atraumatic. Eyes - MARIBETH bilaterally and EOMI. Ears - normal external appearance, hearing intact. Nose - normal, no erythema. Throat - mucous membranes moist, pharynx without lesions. Neck: Supple, trachea midline. Cardiovascular: S1, S2 normal. No murmurs, rubs, clicks or gallops appreciated. Trace pedal edema. Respiratory: Crackles appreciated bilaterally, some rhonchi bilaterally improved from yesterday. Abdomen: Soft, non-tender, normal bowel sounds, non-distended, no masses or organomegaly appreciated. Neurological: Grossly normal motor and sensory exam. No focal deficits. Musculoskeletal: No joint tenderness, deformity or swelling. Skin: Normal coloration and turgor. No rashes. Psych: Alert, oriented x 3. Normal mood and affect. CURRENT MEDICATIONS: albuterol 2 puff Inhalation 4x daily dexamethasone (DECADRON) inj 6 mg Intravenous Q24H FRIDA enoxaparin (LOVENOX) injection 40 mg Subcutaneous Daily zinc sulfate 220 mg Oral Daily Results/Medications Reviewed 09/01/20 10:10 AM: Results from last 7 days Lab Units 08/31/20 0437 08/30/20 0504 08/29/20 0633 SODIUM mmol/L 140 142 143 POTASSIUM mmol/L 4.7 3.9 4.2 CHLORIDE mmol/L 107 108 108 BUN mg/dL 23 22 22 CREATININE mg/dL 0.72 0.68 0.71 GLUCOSE mg/dL 148* 141* 134* CALCIUM mg/dL 8.6 8.8 8.8 Results from last 7 days Lab Units 09/01/20 0454 08/31/20 0437 08/30/20 0504 WBC K/mcL 11.24* 10.96 10.32 HGB g/dL 13.0 12.6 12.8 HCT % 40.8 39.4 39.9 PLT K/mcL 553* 481* 479* Results from last 7 days Lab Units 08/27/20 1035 TROPONIN I ng/L <15 Results from last 7 days Lab Units 08/27/20 1035 INR 1.0 Results from last 7 days Lab Units 08/31/20 0437 ALK PHOS U/L 77 BILIRUBIN TOTAL mg/dL 0.3 TOTAL PROTEIN g/dL 6.4 ALTR U/L 171* AST U/L 89* CULTURES: Reviewed 10:10 AM IMAGING: Reviewed 10:10 AM * Lan Cook MD - 08/31/2020 6:24 PM EST Patient Name: Kandy Fleming Admit Date: [id number] MR #: [id number] : 1960 Physicians: Katiana Griffith MD (Family); Lin Ortega (Referring) Assessment: Patient with COVID-19, and pneumonia 2. Respiratory failure 3. Fever Plan. Continue patient on current therapy Patient currently on high flow nasal cannula Patient on dexamethasone intravenous Complete patient on remdesivir Patient on zinc sulfate I reviewed labs I reviewed LDH, ESR, C-reactive protein, D-dimer level, ferritin level, D-dimer of 4.3, 296 LDH, ESR of 53, ferritin of 562, and C-reactive protein of 23. I encouraged patient to sleep prone positioning if possible We will continue to follow with you. Subjective: Patient was reevaluated again, with no new symptoms, no new symptoms, patient continueson high flow oxygen, saturating at 93%, FiO2 of 50. No fever, T-max has been 97.2. Lab review discussed with patient, later in the day patient currently on nasal cannula oxygen on 6 L of nasal cannula saturating at 93%. Exam: PACU Vitals 08/31/20 1600 BP: (!) 108/49 Pulse: 80 Resp: 16 Temp: 97.1 F (36.2 C) SpO2: 93% Allergies: Patient has no known allergies. Current Facility-Administered Medications: acetaminophen (TYLENOL) tablet 650 mg, 650 mg, Oral, Q6H PRN, Arnold Hardin CNP, 650 mg at 08/27/20 1813 albuterol inhaler 2 puff, 2 puff, Inhalation, Q4H PRN, Bailey Neri CNP albuterol inhaler 2 puff, 2 puff, Inhalation, 4x daily, Bailey Neri CNP, 2 puff at 08/31/20 1259 dexamethasone (DECADRON) injection 6 mg, 6 mg, Intravenous, Q24H FRIDA, Arnold Hardin CNP, 6 mg at 08/31/20 0831 enoxaparin (LOVENOX) syringe 40 mg, 40 mg, Subcutaneous, Daily, Arnold Hardin CNP, 40 mg at 08/31/20 0831 ondansetron (ZOFRAN) injection 4 mg, 4 mg, Intravenous, Q6H PRN, Arnold Hardin CNP zinc sulfate (ZINCATE) capsule 220 mg, 220 mg, Oral, Daily, Bailey Neri CNP, 220 mg at 08/31/20 0831 PMH/PSH/SH/FH reviewed, no change : Review of Systems: All systems were reviewed no change: Medications Reviewed. Chart Reviewed. Exam Findings: Neck: Supple, no rigidity Chest: Symmetrical, on high flow nasal cannula oxygen. CVS: Normal S1 & S2+, Normal Rhythm Abdomen: Normal symmetry, Extremities: No Deformities or Edema Skin: Intact & No Rashes, or excoriations Musculoskeletal: No joint swelling, non tender GENERAL ENGINEER: Awake, and Ox3, patient resting quietly on the bed. Wound: None Anaya Catheter: None IV Access: Yes I reviewed Medications. I reviewed Labs. Laboratory and Additional Data Reviewed: Laboratory 08/31/20 6:24 PM Microbiology 08/31/20 6:24 PM Radiology 08/31/20 6:24 PM XR Chest 1 View Final Result Bilateral pulmonary infiltrates unchanged. [employer] Workstation ID: [id number] CT Pulmonary Arteries Final Result No evidence of pulmonary embolism or aortic dissection. Extensive bilateral multilobar pneumonia. Mediastinal and hilar lymphadenopathy, favored to be reactive. Recommend 3-month follow-up. Small hiatal hernia. [employer] Workstation ID: [id number] XR Chest 1 View Final Result Bilateral perihilar infiltrates left greater than right. Follow-up until complete resolution is suggested. Workstation ID: [id number] Medications 08/31/20 6:24 PM Lab Results Component Value Date WBC 10.96 08/31/2020 HGB 12.6 08/31/2020 HCT 39.4 08/31/2020 MCV 91.0 08/31/2020 PLT 481 (H) 08/31/2020 Lab Results Component Value Date GLUCOSE 148 (H) 08/31/2020 CALCIUM 8.6 08/31/2020 NA 140 08/31/2020 K 4.7 08/31/2020 CL 107 08/31/2020 BUN 23 08/31/2020 CREATININE 0.72 08/31/2020 Problem List Items Addressed This Visit Other * (Principal) COVID-19 virus infection Other Visit Diagnoses Pneumonia of both lungs due to infectious organism, unspecified part of lung - Primary Relevant Medications albuterol inhaler 2 puff albuterol inhaler 2 puff COVID-19 Hypoxia Relevant Medications albuterol inhaler 2 puff albuterol inhaler 2 puff I discussed my management plans with Patient/and or Family member, and also discussed antibiotics therapy including side effects with Patient/and or Family member. Medical Decision Making: Moderate This note is created with the assistance of a speech-recognition program. While intending to generate a document that actually reflects the content of the visit, the document can still have some errors including those of syntax and sound a- like substitutions which may escape proofreading. In such instances, actual meaning can be extrapolated by contextual derivation. * Easton Back MD - 08/31/2020 12:32 PM EST Hospital Medicine Inpatient Follow-up 08/31/2020 Easton Back MD [facility] Patient: Kandy Fleming Date of : 1960 (60 y.o.) PCP: Katiana Griffith MD ASSESSMENT/PLAN: Kandy Fleming 60 y.o. female presented with complains of shortness of breath Principal Problem: COVID-19 virus infection Acute hypoxic respiratory failure Acute pulmonary edema Plan: Remains on high flow improved at 10-15L. Another dose of Lasix 20 mg IV today. Continue remdesivir and dexamethasone. CRP and ferritin continue to decrease. ID following. Encourage prone positioning, use incentive spirometer. SUBJECTIVE: Clinically stable no occasions overnight. All other systems reviewed and negative other than noted above. OBJECTIVE: Physical Examination: BP 110/61 Pulse 72 Temp (!) 96.5 F (35.8 C) Resp 16 Ht 5' 6 Wt 102.7 kg (226 lb 6.6 oz) SpO2 93% BMI 36.54 kg/m General Appearance: Alert, well appearing, and in no acute distress. HEENT: Head - Normocephalic, atraumatic. Eyes - MARIEBTH bilaterally and EOMI. Ears - normal external appearance, hearing intact. Nose - normal, no erythema. Throat - mucous membranes moist, pharynx without lesions. Neck: Supple, trachea midline. Cardiovascular: S1, S2 normal. No murmurs, rubs, clicks or gallops appreciated. Trace pedal edema. Respiratory: Crackles appreciated bilaterally, some rhonchi bilaterally improved from yesterday. Abdomen: Soft, non-tender, normal bowel sounds, non-distended, no masses or organomegaly appreciated. Neurological: Grossly normal motor and sensory exam. No focal deficits. Musculoskeletal: No joint tenderness, deformity or swelling. Skin: Normal coloration and turgor. No rashes. Psych: Alert, oriented x 3. Normal mood and affect. CURRENT MEDICATIONS: albuterol 2 puff Inhalation 4x daily dexamethasone (DECADRON) inj 6 mg Intravenous Q24H FRIDA enoxaparin (LOVENOX) injection 40 mg Subcutaneous Daily remdesivir ivpb 100 mg Intravenous Q24H sodium chloride 0.9% 50 mL Intravenous Q24H zinc sulfate 220 mg Oral Daily Results/Medications Reviewed 08/31/20 12:32 PM: Results from last 7 days Lab Units 08/31/20 0437 08/30/20 0504 08/29/20 0633 SODIUM mmol/L 140 142 143 POTASSIUM mmol/L 4.7 3.9 4.2 CHLORIDE mmol/L 107 108 108 BUN mg/dL 23 22 22 CREATININE mg/dL 0.72 0.68 0.71 GLUCOSE mg/dL 148* 141* 134* CALCIUM mg/dL 8.6 8.8 8.8 Results from last 7 days Lab Units 08/31/20 0437 08/30/20 0504 08/29/20 0633 WBC K/mcL 10.96 10.32 7.46 HGB g/dL 12.6 12.8 12.2 HCT % 39.4 39.9 37.2 PLT K/mcL 481* 479* 432* Results from last 7 days Lab Units 08/27/20 1035 TROPONIN I ng/L <15 Results from last 7 days Lab Units 08/27/20 1035 INR 1.0 Results from last 7 days Lab Units 08/31/20 0437 ALK PHOS U/L 77 BILIRUBIN TOTAL mg/dL 0.3 TOTAL PROTEIN g/dL 6.4 ALTR U/L 171* AST U/L 89* CULTURES: Reviewed 12:32 PM IMAGING: Reviewed 12:32 PM * Lan Cook MD - 08/30/2020 2:50 PM EST Patient Name: Kandy Fleming Admit Date: [id number] MR #: [id number] : 1960 Physicians: Katiana Griffith MD (Family); Lin Ortega* (Referring) Assessment: Patient with COVID-19, and pneumonia 2. Respiratory failure 3. Fever Plan. Continue patient on current therapy Patient currently on high flow nasal cannula Patient on dexamethasone intravenous Patient on remdesivir Patient on zinc sulfate I reviewed labs I reviewed LDH, ESR, C-reactive protein, D-dimer level, ferritin level, D-dimer of 4.69 LDH of 305 ESR of 64 ferritin of 569 C-reactive protein of 45.1. I encouraged patient to sleep prone positioning if possible We will continue to follow with you. Subjective: Patient was reevaluated again, with no new symptoms, no new symptoms, patient still on high flow nasal cannula, saturating at 92% FiO2 of 60%. No fever, T-max has been 97.7. Exam: PACU Vitals 08/30/20 1101 BP: 112/71 Pulse: 72 Resp: 15 Temp: 97.7 F (36.5 C) SpO2: 92% Allergies: Patient has no known allergies. Current Facility-Administered Medications: acetaminophen (TYLENOL) tablet 650 mg, 650 mg, Oral, Q6H PRN, Arnold Hardin CNP, 650 mg at 08/27/20 1813 albuterol inhaler 2 puff, 2 puff, Inhalation, Q4H PRN, Bailey Neri CNP albuterol inhaler 2 puff, 2 puff, Inhalation, 4x daily, Bailey Neri CNP, 2 puff at 08/30/20 1159 dexamethasone (DECADRON) injection 6 mg, 6 mg, Intravenous, Q24H FRIDA, Arnold Hardin CNP, 6 mg at 08/30/20 0801 enoxaparin (LOVENOX) syringe 40 mg, 40 mg, Subcutaneous, Daily, Arnold Hardin CNP, 40 mg at 08/30/20 0757 ondansetron (ZOFRAN) injection 4 mg, 4 mg, Intravenous, Q6H PRN, Arnold Hardin CNP [COMPLETED] remdesivir 200 mg in sodium chloride 0.9 % (NS) 100 mL IVPB, 200 mg, Intravenous, Once,Stopped at 08/27/20 1942 FOLLOWED BY remdesivir 100 mg in sodium chloride 0.9 % (NS) 100 mL IVPB, 100 mg, Intravenous, Q24H, Arnold Hardin CNP, Last Rate: 100 mL/hr at 08/30/20 1332, 100 mg at 08/30/20 1332 [COMPLETED] sodium chloride 0.9% (NS) bolus 50 mL, 50 mL, Intravenous, Once, Stopped at 08/27/202108 FOLLOWED BY sodium chloride 0.9% (NS) bolus 50 mL, 50 mL, Intravenous, Q24H, Arnold Hardin CNP, Last Rate: 250 mL/hr at 08/30/20 1332, 50 mL at 08/30/20 1332 zinc sulfate (ZINCATE) capsule 220 mg, 220 mg, Oral, Daily, Bailey Neri, KINJAL, 220 mg at 08/30/20 0801 PMH/PSH/SH/FH reviewed, no change : Review of Systems: All systems were reviewed no change: Medications Reviewed. Chart Reviewed. Exam Findings: Neck: Supple, no rigidity Chest: Symmetrical, on high flow nasal cannula oxygen. CVS: Normal S1 & S2+, Normal Rhythm Abdomen: Normal symmetry, Extremities: No Deformities or Edema Skin: Intact & No Rashes, or excoriations Musculoskeletal: No joint swelling, non tender GENERAL ENGINEER: Awake, and Ox3, patient resting quietly on the bed. Wound: None Anaya Catheter: None IV Access: Yes I reviewed Medications. I reviewed Labs. Laboratory and Additional Data Reviewed: Laboratory 08/30/20 2:50 PM Microbiology 08/30/20 2:50 PM Radiology 08/30/20 2:50 PM XR Chest 1 View Final Result Bilateral pulmonary infiltrates unchanged. [employer] Workstation ID: [id number] CT Pulmonary Arteries Final Result No evidence of pulmonary embolism or aortic dissection. Extensive bilateral multilobar pneumonia. Mediastinal and hilar lymphadenopathy, favored to be reactive. Recommend 3-month follow-up. Small hiatal hernia. [employer] Workstation ID: [id number] XR Chest 1 View Final Result Bilateral perihilar infiltrates left greater than right. Follow-up until complete resolution is suggested. Workstation ID: [id number] Medications 08/30/20 2:50 PM Lab Results Component Value Date WBC 10.32 08/30/2020 HGB 12.8 08/30/2020 HCT 39.9 08/30/2020 MCV 91.1 08/30/2020 PLT 479 (H) 08/30/2020 Lab Results Component Value Date GLUCOSE 141 (H) 08/30/2020 CALCIUM 8.8 08/30/2020 NA 142 08/30/2020 K 3.9 08/30/2020 CL 108 08/30/2020 BUN 22 08/30/2020 CREATININE 0.68 08/30/2020 Problem List Items Addressed This Visit Other * (Principal) COVID-19 virus infection Other Visit Diagnoses Pneumonia of both lungs due to infectious organism, unspecified part of lung - Primary Relevant Medications albuterol inhaler 2 puff albuterol inhaler 2 puff COVID-19 Hypoxia Relevant Medications albuterol inhaler 2 puff albuterol inhaler 2 puff I discussed my management plans with Patient/and or Family member, and also discussed antibiotics therapy including side effects with Patient/and or Family member. Medical Decision Making: Moderate This note is created with the assistance of a speech-recognition program. While intending to generate a document that actually reflects the content of the visit, the document can still have some errors including those of syntax and sound a- like substitutions which may escape proofreading. In such instances, actual meaning can be extrapolated by contextual derivation. * Easton Back MD - 08/30/2020 8:43 AM EST [facility] Medicine Inpatient Follow-up 08/30/2020 Easton Back MD [facility] Patient: Kandy Fleming Date of : 1960 (60 y.o.) PCP: Katiana Griffith MD ASSESSMENT/PLAN: Kandy Fleming 60 y.o. female presented with complains of shortness of breath Principal Problem: COVID-19 virus infection Acute hypoxic respiratory failure Acute pulmonary edema Plan: Remains on high flow improved at 20 L. Another dose of Lasix 40 mg IV today. Continue remdesivir and dexamethasone. CRP and ferritin continue to decrease. ID following. Encourage prone positioning, use incentive spirometer. SUBJECTIVE: Clinically stable no occasions overnight. All other systems reviewed and negative other than noted above. OBJECTIVE: Physical Examination: BP 121/62 (BP Location: Left arm, Patient Position: Sitting) Pulse 63 Temp (!) 96.5 F (35.8 C) (Oral) Resp 17 Ht 5' 6 Wt 101.9 kg (224 lb 10.4 oz) SpO2 94% BMI 36.26 kg/m General Appearance: Alert, well appearing, and in no acute distress. HEENT: Head - Normocephalic, atraumatic. Eyes - MARIBETH bilaterally and EOMI. Ears - normal external appearance, hearing intact. Nose - normal, no erythema. Throat - mucous membranes moist, pharynx without lesions. Neck: Supple, trachea midline. Cardiovascular: S1, S2 normal. No murmurs, rubs, clicks or gallops appreciated. Trace pedal edema. Respiratory: Crackles appreciated bilaterally, some rhonchi bilaterally improved from yesterday. Abdomen: Soft, non-tender, normal bowel sounds, non-distended, no masses or organomegaly appreciated. Neurological: Grossly normal motor and sensory exam. No focal deficits. Musculoskeletal: No joint tenderness, deformity or swelling. Skin: Normal coloration and turgor. No rashes. Psych: Alert, oriented x 3. Normal mood and affect. CURRENT MEDICATIONS: albuterol 2 puff Inhalation 4x daily dexamethasone (DECADRON) inj 6 mg Intravenous Q24H FRIDA enoxaparin (LOVENOX) injection 40 mg Subcutaneous Daily remdesivir ivpb 100 mg Intravenous Q24H sodium chloride 0.9% 50 mL Intravenous Q24H zinc sulfate 220 mg Oral Daily Results/Medications Reviewed 08/30/20 8:43 AM: Results from last 7 days Lab Units 08/30/20 0504 08/29/20 0633 08/28/20 0625 SODIUM mmol/L 142 143 140 POTASSIUM mmol/L 3.9 4.2 3.5 CHLORIDE mmol/L 108 108 106 BUN mg/dL 22 22 16 CREATININE mg/dL 0.68 0.71 0.61 GLUCOSE mg/dL 141* 134* 117* CALCIUM mg/dL 8.8 8.8 8.6 Results from last 7 days Lab Units 08/30/20 0504 08/29/20 0633 08/28/20 0625 WBC K/mcL 10.32 7.46 4.54 HGB g/dL 12.8 12.2 12.1 HCT % 39.9 37.2 37.2 PLT K/mcL 479* 432* 363 Results from last 7 days Lab Units 08/27/20 1035 TROPONIN I ng/L <15 Results from last 7 days Lab Units 08/27/20 1035 INR 1.0 Results from last 7 days Lab Units 08/30/20 0504 ALK PHOS U/L 75 BILIRUBIN TOTAL mg/dL 0.3 TOTAL PROTEIN g/dL 6.8 ALTR U/L 102* AST U/L 71* CULTURES: Reviewed 8:43 AM IMAGING: Reviewed 8:43 AM * Lan Cook MD - 08/29/2020 6:20 PM EST Patient Name: Kandy Fleming Admit Date: [id number] MR #: [id number] : 1960 Physicians: Katiana Griffith MD (Family); Lin Ortega (Referring) Assessment: Patient with COVID-19, and pneumonia 2. Respiratory failure 3. Fever Plan. Continue patient on current therapy Patient currently on high flow nasal cannula Patient on dexamethasone intravenous Patient on remdesivir Patient on zinc sulfate I reviewed labs I reviewed LDH, ESR, C-reactive protein, D-dimer level, ferritin level, I encouraged patient to sleep prone positioning if possible We will continue to follow with you. Subjective: Patient was reevaluated again, with no new symptoms, she had told me also that she has shortness of breath started about 3 days before this presentation, with worsening cough and some yellow-brownish sputum production. She thought she had caught COVID-19 through family members who are positive for for COVID-19. Today patient still on high flow nasal cannula oxygen, with T-max of 98.1 saturating at 92%. FiO2 of 63. Exam: PACU Vitals 08/29/20 1621 BP: (!) 112/51 Pulse: 72 Resp: 16 Temp: 97.1 F (36.2 C) SpO2: 92% Allergies: Patient has no known allergies. Current Facility-Administered Medications: acetaminophen (TYLENOL) tablet 650 mg, 650 mg, Oral, Q6H PRN, Arnold Hardin CNP, 650 mg at 08/27/20 1813 albuterol inhaler 2 puff, 2 puff, Inhalation, Q4H PRN, Bailey Neri CNP albuterol inhaler 2 puff, 2 puff, Inhalation, 4x daily, Bailey Neri CNP, 2 puff at 08/29/20 1623 dexamethasone (DECADRON) injection 6 mg, 6 mg, Intravenous, Q24H FRIDA, Arnold Hardin CNP, 6 mg at 08/29/20 0847 enoxaparin (LOVENOX) syringe 40 mg, 40 mg, Subcutaneous, Daily, Arnold Hardin CNP, 40 mg at 08/29/20 0847 ondansetron (ZOFRAN) injection 4 mg, 4 mg, Intravenous, Q6H PRN, Arnold Hardin CNP [COMPLETED] remdesivir 200 mg in sodium chloride 0.9 % (NS) 100 mL IVPB, 200 mg, Intravenous, Once,Stopped at 08/27/201941 FOLLOWED BY remdesivir 100 mg in sodium chloride 0.9 % (NS) 100 mL IVPB, 100 mg, Intravenous, Q24H, Arnold Hardin CNP, Last Rate: 100 mL/hr at 08/29/20 1215, 100 mg at 08/29/20 1215 [COMPLETED] sodium chloride 0.9% (NS) bolus 50 mL, 50 mL, Intravenous, Once, Stopped at 08/27/202108 FOLLOWED BY sodium chloride 0.9% (NS) bolus 50 mL, 50 mL, Intravenous, Q24H, Arnold Hardin CNP, Last Rate: 250 mL/hr at 08/29/20 1213, 50 mL at 08/29/20 1213 zinc sulfate (ZINCATE) capsule 220 mg, 220 mg, Oral, Daily, Bailey Neri CNP, 220 mg at 08/29/20 0847 PMH/PSH/SH/ reviewed, no change : Review of Systems: All systems were reviewed no change: Medications Reviewed. Chart Reviewed. Exam Findings: Neck: Supple, no rigidity ENT: No oral candidiasis Chest: Symmetrical, on high flow nasal cannula oxygen. CVS: Normal S1 & S2+, Normal Rhythm Abdomen: Normal symmetry, Extremities: No Deformities or Edema Skin: Intact & No Rashes, or excoriations Musculoskeletal: No joint swelling, non tender GENERAL ENGINEER: Awake, and Ox3 Wound: None Anaya Catheter: None IV Access: Yes I reviewed Medications. I reviewed Labs. Laboratory and Additional Data Reviewed: Laboratory 08/29/20 6:20 PM Microbiology 08/29/20 6:20 PM Radiology 08/29/20 6:20 PM XR Chest 1 View Final Result Bilateral pulmonary infiltrates unchanged. [facility] Workstation ID: [id number] CT Pulmonary Arteries Final Result No evidence of pulmonary embolism or aortic dissection. Extensive bilateral multilobar pneumonia. Mediastinal and hilar lymphadenopathy, favored to be reactive. Recommend 3-month follow-up. Small hiatal hernia. /[facility] Workstation ID: [id number] XR Chest 1 View Final Result Bilateral perihilar infiltrates left greater than right. Follow-up until complete resolution is suggested. Workstation ID: [id number] Medications 08/29/20 6:20 PM Lab Results Component Value Date WBC 7.46 08/29/2020 HGB 12.2 08/29/2020 HCT 37.2 08/29/2020 MCV 89.0 08/29/2020 PLT 432 (H) 08/29/2020 Lab Results Component Value Date GLUCOSE 134 (H) 08/29/2020 CALCIUM 8.8 08/29/2020 NA 143 08/29/2020 K 4.2 08/29/2020 CL 108 08/29/2020 BUN 22 08/29/2020 CREATININE 0.71 08/29/2020 Problem List Items Addressed This Visit Other * (Principal) COVID-19 virus infection Other Visit Diagnoses Pneumonia of both lungs due to infectious organism, unspecified part of lung - Primary Relevant Medications albuterol inhaler 2 puff albuterol inhaler 2 puff COVID-19 Hypoxia Relevant Medications albuterol inhaler 2 puff albuterol inhaler 2 puff I discussed my management plans with Patient/and or Family member, and also discussed antibiotics therapy including side effects with Patient/and or Family member. Medical Decision Making: Moderate This note is created with the assistance of a speech-recognition program. While intending to generate a document that actually reflects the content of the visit, the document can still have some errors including those of syntax and sound a- like substitutions which may escape proofreading. In such instances, actual meaning can be extrapolated by contextual derivation. * Easton Back MD - 08/29/2020 10:50 AM EST [facility] Medicine Inpatient Follow-up 08/29/2020 Easton Back MD [facility] Patient: Kandy Fleming Date of : 1960 (60 y.o.) PCP: Katiana Griffith MD ASSESSMENT/PLAN: Kandy Fleming 60 y.o. female presented with complains of shortness of breath Principal Problem: COVID-19 virus infection Acute hypoxic respiratory failure On high flow down to 40 L. We will give another dose of Lasix 40 mg today. Remdesivir and dexamethasone. CRP and ferritin is decreased today. ID consult. Encourage prone positioning, use incentive spirometer. SUBJECTIVE: Is feeling slightly better than last night, eating breakfast. No acute events overnight remains clinically stable. All other systems reviewed and negative other than noted above. OBJECTIVE: Physical Examination: BP 113/62 Pulse 65 Temp 98.1 F (36.7 C) (Oral) Resp 18 Ht 5' 6 Wt 102 kg (224 lb 13.9 oz) SpO2 94% BMI 36.29 kg/m General Appearance: Alert, well appearing, and in no acute distress. HEENT: Head - Normocephalic, atraumatic. Eyes - MARIBETH bilaterally and EOMI. Ears - normal external appearance, hearing intact. Nose - normal, no erythema. Throat - mucous membranes moist, pharynx without lesions. Neck: Supple, trachea midline. Cardiovascular: S1, S2 normal. No murmurs, rubs, clicks or gallops appreciated. Trace pedal edema. Respiratory: Crackles appreciated bilaterally, some rhonchi bilaterally improved from yesterday. Abdomen: Soft, non-tender, normal bowel sounds, non-distended, no masses or organomegaly appreciated. Neurological: Grossly normal motor and sensory exam. No focal deficits. Musculoskeletal: No joint tenderness, deformity or swelling. Skin: Normal coloration and turgor. No rashes. Psych: Alert, oriented x 3. Normal mood and affect. CURRENT MEDICATIONS: albuterol 2 puff Inhalation 4x daily dexamethasone (DECADRON) inj 6 mg Intravenous Q24H FRIDA enoxaparin (LOVENOX) injection 40 mg Subcutaneous Daily remdesivir ivpb 100 mg Intravenous Q24H sodium chloride 0.9% 50 mL Intravenous Q24H zinc sulfate 220 mg Oral Daily Results/Medications Reviewed 08/29/20 10:50 AM: Results from last 7 days Lab Units 08/29/20 0633 08/28/20 0625 08/28/20 0435 08/27/20 1035 SODIUM mmol/L 143 140 142 139 POTASSIUM mmol/L 4.2 3.5 3.5 3.2* CHLORIDE mmol/L 108 106 104 103 BUN mg/dL 22 16 -- 14 CREATININE mg/dL 0.71 0.61 -- 0.71 GLUCOSE mg/dL 134* 117* 132* 117* CALCIUM mg/dL 8.8 8.6 -- 8.9 Results from last 7 days Lab Units 08/29/20 0633 08/28/20 0625 08/28/20 0435 08/27/20 1035 WBC K/mcL 7.46 4.54 -- 6.75 HGB g/dL 12.2 12.1 -- 13.1 HEMOGLOBIN BG g/dL -- -- 12.7 -- HEMATOCRIT, CALCULATED % -- -- 38.9 -- HCT % 37.2 37.2 -- 39.9 PLT K/mcL 432* 363 -- 313 Results from last 7 days Lab Units 08/27/20 1035 TROPONIN I ng/L <15 Results from last 7 days Lab Units 08/27/20 1035 INR 1.0 Results from last 7 days Lab Units 08/29/20 0633 ALK PHOS U/L 77 BILIRUBIN TOTAL mg/dL 0.3 TOTAL PROTEIN g/dL 6.8 ALTR U/L 82* AST U/L 58* CULTURES: Reviewed 10:50 AM IMAGING: Reviewed 10:50 AM * Kasia Flores RN - 08/29/2020 6:24 AM EST Per patient she does not want her called this morning, stated he is not up this early in the morning. * Easton Back MD - 08/28/2020 12:16 PM EST [facility] Medicine Inpatient Follow-up 08/28/2020 Easton Back MD [facility] Patient: Kandy Fleming Date of : 1960 (60 y.o.) PCP: Katiana Griffith MD ASSESSMENT/PLAN: Kandy Fleming 60 y.o. female presented with complains of shortness of breath Principal Problem: COVID-19 virus infection Acute hypoxic respiratory failure On high flow at 45 L. Agree with Lasix this morning. Will dose another 20 mg in the evening. Remdesivir and dexamethasone. Follow markers. ID consult. Encourage prone positioning, use incentive spirometer. SUBJECTIVE: Is feeling slightly better than last night, eating breakfast. All other systems reviewed and negative other than noted above. OBJECTIVE: Physical Examination: BP (!) 102/54 Pulse 77 Temp (!) 96 F (35.6 C) (Axillary) Resp (!) 24 Ht 5' 6 Wt 102.2 kg(225 lb 5 oz) SpO2 93% BMI 36.37 kg/m General Appearance: Alert, well appearing, and in no acute distress. HEENT: Head - Normocephalic, atraumatic. Eyes - MARIBETH bilaterally and EOMI. Ears - normal external appearance, hearing intact. Nose - normal, no erythema. Throat - mucous membranes moist, pharynx without lesions. Neck: Supple, trachea midline. Cardiovascular: S1, S2 normal. No murmurs, rubs, clicks or gallops appreciated. Trace pedal edema. Respiratory: Crackles appreciated bilaterally Abdomen: Soft, non-tender, normal bowel sounds, non-distended, no masses or organomegaly appreciated. Neurological: Grossly normal motor and sensory exam. No focal deficits. Musculoskeletal: No joint tenderness, deformity or swelling. Skin: Normal coloration and turgor. No rashes. Psych: Alert, oriented x 3. Normal mood and affect. CURRENT MEDICATIONS: albuterol 2 puff Inhalation 4x daily dexamethasone (DECADRON) inj 6 mg Intravenous Q24H FRIDA enoxaparin (LOVENOX) injection 40 mg Subcutaneous Daily furosemide 20 mg Intravenous Once remdesivir ivpb 100 mg Intravenous Q24H sodium chloride 0.9% 50 mL Intravenous Q24H zinc sulfate 220 mg Oral Daily Results/Medications Reviewed 08/28/20 12:16 PM: Results from last 7 days Lab Units 08/28/20 0608/28/20 04308/27/20 1035 SODIUM mmol/L 140 142 139 POTASSIUM mmol/L 3.5 3.5 3.2* CHLORIDE mmol/L 106 104 103 BUN mg/dL 16 -- 14 CREATININE mg/dL 0.61 -- 0.71 GLUCOSE mg/dL 117* 132* 117* CALCIUM mg/dL 8.6 -- 8.9 Results from last 7 days Lab Units 08/28/20 0625 08/28/20 0435 08/27/20 1035 WBC K/mcL 4.54 -- 6.75 HGB g/dL 12.1 -- 13.1 HEMOGLOBIN BG g/dL -- 12.7 -- HEMATOCRIT, CALCULATED % -- 38.9 -- HCT % 37.2 -- 39.9 PLT K/mcL 363 -- 313 Results from last 7 days Lab Units 08/27/20 1035 TROPONIN I ng/L <15 Results from last 7 days Lab Units 08/27/20 1035 INR 1.0 Results from last 7 days Lab Units 08/28/20 0625 ALK PHOS U/L 83 BILIRUBIN TOTAL mg/dL 0.3 TOTAL PROTEIN g/dL 7.2 ALTR U/L 97* AST U/L 88* CULTURES: Reviewed 12:16 PM IMAGING: Reviewed 12:16 PM documented in this encounter Assessments Diagnosis COVID-19 virus infection- Primary Pneumonia of both lungs due to infectious organism, unspecified part of lung COVID-19 Hypoxia Hypoxemia Medications Administered Section Active Administered Medications - up to 3 most recent administrations Medication Order MAR Action Action Date Dose Rate Site PHENYLephrine 2.5 % 1 Drop (AK-DILATE, CARLOS-SYNEPHRINE) 1 Drop, BOTH EYES, DIRECTED, Starting on Thu01/26/23 at 1430, Until Thu01/27/23 at 0229, Administer for dilation PROTECT FROM LIGHT Given 01/26/2023 2:30 PM EDT 1 Drop proparacaine 0.5 % 1 Drop (ALCAINE) 1 Drop, BOTH EYES, DIRECTED, Starting on Thu01/26/23 at 1430, Until Thu01/27/23 at 0229, Administer for pneumo tonometry, tonopen tonometry, or pachymetry. In the event of a proparacaine shortage, administer tetracaine 0.5% ophthalmic drops 1 drop in the left eye as directed for pneumo tonometry, tonopen tonometry, or pachymetry Given 01/26/2023 2:30 PM EDT 1 Drop tropicamide 1 % 1 Drop (MYDRIACYL) 1 Drop, BOTH EYES, DIRECTED, Starting on Thu01/26/23 at 1430, Until Thu01/27/23 at 0229, Administer for dilation Given 01/26/2023 2:30 PM EDT 1 Drop Inactive Administered Medications - up to 3 most recent administrations Medication Order MAR Action Action Date Dose Rate Site PHENYLephrine 2.5 % 1 Drop (AK-DILATE, CARLOS-SYNEPHRINE) 1 Drop, RIGHT EYE, ONCE, 1 dose, On Kim 04/30/23 at 1600, FOR OPHTHALMIC USE ONLY PROTECT FROM LIGHT Given 04/30/2023 4:00 PM EDT 1 Drop tropicamide 1 % 1 Drop (MYDRIACYL) 1 Drop, RIGHT EYE, ONCE, 1 dose, On Kim 04/30/23 at 1600, FOR THE EYE Given 04/30/2023 4:00 PM EDT 1 Drop Additional Source Comments INFORMATION SOURCE (unrecogn ized section and content) DATE CREATED AUTHOR AUTHOR'S ORGANIZ ATION 07/27/2018 [facility] DATE CREATED AUTHOR AUTHOR'S ORGANIZ ATION 05/29/2020 [employer] DATE CREATED AUTHOR AUTHOR'S ORGANIZ ATION 09/19/2020 [facility] DATE CREATED AUTHOR AUTHOR'S ORGANIZ ATION 03/18/2023 [facility] DATE CREATED AUTHOR AUTHOR'S ORGANIZ ATION 05/08/2023 [facility] Reason for Visit (unrecogniz ed section and content) Status Reason Specialty Diagnoses / Procedures Referre d By Contact Referred To Contact Diagnoses COVID-19 virus infection cough, wheezing Reason Comments Dry Eye Syndrome Follow Up Reason Comments Blurred Vision Right Eye 1 year Difficulty Reading Right Eye Glare Right eye Halos Right Eye Reason Comments Blurred Vision Right Eye Difficulty Reading Right Eye Glare Right Eye Reason Comments Post-op Cataract OD 03/12/2023 Reason Comments Post-op Cataract OD 03/12/23 Reason Comments Other Combined forms of ag e-related cataract, right eye Arnold Hardin CNP - 08/27/2020 2:38 PM EST H&P Notes (unrecognized sect ion and content) [facility] Medicine Inpatient H&P 08/27/2020 Arnold Hardin CNP [facility] Patient: Kandy Fleming Date of : 1960 (60 y.o.) PCP: Katiana Griffith MD Assessment Kandy Fleming 60 y.o. female without any medical history was admitted to hospital on August 27 for COVID-19 virus infection with acute respiratory failure Principal Problem: COVID-19 virus infection Acute respiratory failure Plan: COVID-19 virus infection with acute respiratory failure -Admit to medical surgical floor, hospital monitor, oxygen panel (4 L NC), start remdesivir and Decadron, ID consult, breathing treatment as needed, follow inflammatory markers SUBJECTIVE: Chief Complaint: Shortness of breath History of Presenting Illness: Kandy Fleming is a 60 y.o. female without medical history presents for shortness of breath. Patient was diagnosed of COVID-19 and influenza B on August 17. She has been fever ever since. However in the past 1 week she reported worsening shortness of breath. Her primary care physician started her on azithromycin without improvement. She visited ED today. She was found O2 sat 88 in room air. She has to wear 4 L NC to keep O2 sat above 92. Her CTA ruled out PE, showed multifocal pneumonia. Patient will be admitted to hospital for further evaluation. Review of Systems: 10 systems reviewed and negative other than noted in HPI History: History reviewed. No pertinent past medical history. History reviewed. No pertinent surgical history. History reviewed. No pertinent family history. Social History Tobacco Use Smoking Status Never Smoker Smokeless Tobacco Never Used Social History Substance and Sexual Activity Alcohol Use Not Currently Family and Social History reviewed and non-pertinent to this visit Allergies: Patient has no known allergies. Home Medications: Outpatient Medications as of 08/27/2020 Medication Sig albuterol (Ventolin HFA) 90 mcg/actuation inhaler Inhale 2 (two) puffs every 6 (six) hours as needed for wheezing, shortness of breath or cough . azithromycin (Z-ZACHARY) 5 day dose pack Take two tablets by mouth on day 1, then one tablet by mouth daily until finished. . OBJECTIVE: Physical Examination: BP (!) 113/57 Pulse 88 Temp 98.8 F (37.1 C) (Oral) Resp 16 Ht 5' 6 Wt 99.8 kg (220 lb) SpO2 95% BMI 35.51 kg/m General Appearance: Alert, well appearing, and in no acute distress. HEENT: Head - Normocephalic, atraumatic. Eyes - MARIBETH bilaterally and EOMI. Ears - normal external appearance, hearing intact. Nose - normal, no erythema. Throat - mucous membranes moist, pharynx without lesions. Neck: Supple, trachea midline. Cardiovascular: S1, S2 normal. No murmurs, rubs, clicks or gallops appreciated. No pedal edema. Respiratory: Lungs clear to auscultation, no wheezes, rales or rhonchi heard. Abdomen: Soft, non-tender, normal bowel sounds, non-distended, no masses or organomegaly appreciated. Neurological: Grossly normal motor and sensory exam. No focal deficits. Musculoskeletal: No joint tenderness, deformity or swelling. Skin: Normal coloration and turgor. No rashes. Psych: Alert, oriented x 3. Normal mood and affect. Laboratory and Additional Data Reviewed: Results/Medications Reviewed 08/27/20 2:38 PM: Results from last 7 days Lab Units 08/27/20 1035 SODIUM mmol/L 139 POTASSIUM mmol/L 3.2* CHLORIDE mmol/L 103 BUN mg/dL 14 CREATININE mg/dL 0.71 GLUCOSE mg/dL 117* CALCIUM mg/dL 8.9 Results from last 7 days Lab Units 08/27/20 1035 WBC K/mcL 6.75 HGB g/dL 13.1 HCT % 39.9 PLT K/mcL 313 Results from last 7 days Lab Units 08/27/20 1035 TROPONIN I ng/L <15 Results from last 7 days Lab Units 08/27/20 1035 INR 1.0 Results from last 7 days Lab Units 08/27/20 1035 ALK PHOS U/L 86 BILIRUBIN TOTAL mg/dL 0.3 TOTAL PROTEIN g/dL 7.4 ALTR U/L 106* AST U/L 123* CULTURES: Reviewed 2:38 PM IMAGING: Reviewed 2:38 PM FINDINGS: PULMONARY ARTERIES: There is good opacification of the pulmonary vasculature. No abnormal vascular cut-offs or filing defects to suggest presence of pulmonary emboli. MEDIASTINUM: Trachea and central airways are patent. Thoracic aorta is normal caliber. Heart is normal in size without pericardial effusion. Several enlarged mediastinal lymph nodes (short axis dimension) 1.2 cm AP window, 0.8 cm right paratracheal, 1.2 cm subcarinal and 1.0 cm prevascular. Prominent hilar lymph nodes, measuring 3.0 x 1.5 cm on the right and 1.8 x 1.7 cm on the left. PLEURAL CAVITY: No pneumothorax. No pleural effusion. LUNGS: Low lung volumes. Extensive patchy infiltrates involving all lobes. CHEST WALL/AXILLA: No axillary lymphadenopathy. VISUALIZED UPPER ABDOMEN: No acute findings. Small sliding-type hiatal hernia. OSSEOUS STRUCTURES: No destructive lesions. IMPRESSION: No evidence of pulmonary embolism or aortic dissection. Extensive bilateral multilobar pneumonia. Mediastinal and hilar lymphadenopathy, favored to be reactive. Recommend 3-month follow-up. documented in this encounter Lan Cook MD - 08/28/2020 12:30 PM Twila Rondon RN - 08/27/2020 11:19 AM EST Consult Notes (unrecognized section and content) Patient Name: Kandy Fleming MR #: [id number] : 1960 Physicians: Katiana Griffith MD (Family); Lin Ortega (Referring) Chief complaint: Kandy Fleming is a 60 y.o. female presented with worsening history of shortness of breath. History: I have reviewed the patient's past medical history, past surgical history, family history, social history. Patient is seen today, known with no obvious past medical history of surgical history, but had been evaluated by her nurse practitioner on August 24, 2020, at that time she had complaint of cough and generalized body aches, cough which was productive of brownish sputum., and his chest was feeling heavy. Before then on August 17, 2020 patient was screened positive for SARS Covid 2, diagnosed with COVID-19, she had been on albuterol and Z-Zachary. Patient had told me that she may have gotten Covid 19 from family members with positive Covid 19. She had not improved, and then presented in this visit with worsening history of shortness of breath, and also fever. She was found O2 saturation in the 80s while on room air, and had a chest x-ray currently that had shown bilateral pulmonary infiltrate. She also had a CT scan of the lungs that have shown extensive bilateral multilobar pneumonia. High mediastinal hilar lymphadenopathy. She is currently on high flow nasal oxygen saturating at 93% on FiO2 of 88. Her T-max since on admission had been 101. He was started on remdesivir, dexamethasone, and evaluation currently is for COVID-19, pneumonia, respiratory failure, and antibiotics management. History reviewed. No pertinent past medical history. History reviewed. No pertinent surgical history. History reviewed. No pertinent family history. Social History Socioeconomic History Marital status: Spouse name: Not on file Number of children: Not on file Years of education: Not on file Highest education level: Not on file Occupational History Not on file Social Needs Financial resource strain: Not on file Food insecurity Worry: Not on file Inability: Not on file Transportation needs Medical: Not on file Non-medical: Not on file Tobacco Use Smoking status: Never Smoker Smokeless tobacco: Never Used Substance and Sexual Activity Alcohol use: Not Currently Drug use: Not Currently Sexual activity: Not on file Lifestyle Physical activity Days per week: Not on file Minutes per session: Not on file Stress: Not on file Relationships Social connections Talks on phone: Not on file Gets together: Not on file Attends adventist service: Not on file Active member of club or organization: Not on file Attends meetings of clubs or organizations: Not on file Relationship status: Not on file Other Topics Concern Not on file Social History Narrative Not on file Travel History: None Animal Contact: None Medications: I have reviewed the patient's medications. Scheduled Meds: albuterol 2 puff Inhalation 4x daily dexamethasone (DECADRON) inj 6 mg Intravenous Q24H FRIDA enoxaparin (LOVENOX) injection 40 mg Subcutaneous Daily furosemide 20 mg Intravenous Once furosemide 20 mg Intravenous Once remdesivir ivpb 100 mg Intravenous Q24H sodium chloride 0.9% 50 mL Intravenous Q24H zinc sulfate 220 mg Oral Daily Allergy Information: I have reviewed the patient's allergies. Patient has no known allergies. Review of Systems: Review of Systems Labs: Lab Results Component Value Date WBC 4.54 08/28/2020 HGB 12.1 08/28/2020 HCT 37.2 08/28/2020 MCV 88.4 08/28/2020 PLT 363 08/28/2020 No results found for: HGBA1C Lab Results Component Value Date SEDRATE 100 (H) 08/28/2020 Lab Results Component Value Date CRP 149.0 (H) 08/28/2020 Radiology: XR Chest 1 View Final Result Bilateral pulmonary infiltrates unchanged. [employer] Workstation ID: [id number] CT Pulmonary Arteries Final Result No evidence of pulmonary embolism or aortic dissection. Extensive bilateral multilobar pneumonia. Mediastinal and hilar lymphadenopathy, favored to be reactive. Recommend 3-month follow-up. Small hiatal hernia. [employer] Workstation ID: [id number] XR Chest 1 View Final Result Bilateral perihilar infiltrates left greater than right. Follow-up until complete resolution is suggested. Workstation ID: [id number] Physical Examination: Vital Signs: BP (!) 102/54 Pulse 77 Temp (!) 96 F (35.6 C) (Axillary) Resp (!) 24 Ht 5' 6 Wt 102.2 kg (225 lb 5 oz) SpO2 93% BMI 36.37 kg/m Physical Exam Constitutional: Appearance: She is well-developed. HENT: Head: Normocephalic. Neck: Musculoskeletal: Normal range of motion. Cardiovascular: Rate and Rhythm: Normal rate. Pulmonary: Effort: Respiratory distress present. Breath sounds: No wheezing. Comments: Patient on high flow nasal cannula. Abdominal: General: There is no distension. Skin: Coloration: Skin is not pale. Findings: No rash. Neurological: Mental Status: She is oriented to person, place, and time. Comments: But sleepy Assessment and Plan: Patient with COVID-19, and pneumonia 2. Respiratory failure 3. Fever Plan. Continue patient on current therapy Patient currently on high flow nasal cannula Patient on dexamethasone intravenous Patient on remdesivir Patient on zinc sulfate Follow-up labs Follow-up LDH, ESR, C-reactive protein, D-dimer level, ferritin level, I encouraged patient to sleep prone positioning if possible We will continue to follow with you. Problem List Items Addressed This Visit None Visit Diagnoses Pneumonia of both lungs due to infectious organism, unspecified part of lung - Primary Relevant Medications albuterol inhaler 2 puff albuterol inhaler 2 puff COVID-19 Hypoxia Relevant Medications albuterol inhaler 2 puff albuterol inhaler 2 puff I have taken time to review patient's information and having discussions, I appreciate seeing your patient, will continue to follow with you, and adjust with more information. Medical decision making. Moderate Due to the nature of this patient's COVID-19 isolation status, this note was prepared sometimes without a bedside physical exam. When possible, patient communication occurred via telecommunication methods (phone, iPad, or other means),through glass door, through discussion with nursing and thorough review of patient's chart, including results, notes and vital signs. This note is created with the assistance of a speech-recognition program. While intending to generate a document that actually reflects the content of the visit, the document can still have some errors including those of syntax and sound a- like substitutions which may escape proofreading. In such instances, actual meaning can be extrapolated by contextual derivation. 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 Fleming came to the emergency department today with complaints of increasing shortness of breath and generalized weakness and fatigue. She was diagnosed with COVID-19 and influenza B on August 17. Due to feeling short of breath, she saw her PCP and was started on Zithromax. She continued to have worsening symptoms so she had a telephone visit with her provider and was encouraged to come to the ED. Due to her isolation status, a medical chart review was completed. Her chest x-ray is pending and she does have an elevated BNP of 415. Her saturation level was only 88%, on room air, and oxygen was applied and has been adjusted to 4 liters to maintain her saturation levels Her PCP is Lin Ortega CNP and she will be evaluated by [facility] for assistance. Will continue to follow while she remains in the ED. 1426: Due to her hypoxia and bilateral pneumonia the plan is to keep her for further observation and treatment. documented in this encounter Rosa Maria Valdez RN - 08/27/2020 3:47 PM Delmy Villa RN - 08/27/2020 11:08 AM Ester Moran MD - 08/27/2020 10:49 AM Delmy Villa RN - 08/27/2020 10:23 AM EST ED Notes (unrecognized secti on and content) Attempted to call report to floor. RN is with patient at this time and will call back. Xray at bedside. Pt updated on POC, aware awaiting lab results and CT scan. Pt voices understanding and denies further needs. Call light within reach. [facility] ED Attending Note: NAME: Kandy Fleming 60 y.o. CSN: [id number] PCP: Katiana Griffith MD History: Chief Complaint: Shortness of Breath HPI: The history was obtained from the patient. Kandy is a 60 y.o. female who presents with a chief complaint of Shortness of Breath. Is a pleasant 60-year-old female who presents from home with complaints of worsening shortness of breath. On the 17 of August, she was diagnosed with Covid and influenza B. She began feeling more short of breath and saw her primary care provider several days ago who started her on Zithromax. She continued to have worsening symptoms and was sent by her primary care provider to the emergency department today for further evaluation. Patient denies any chest pain or abdominal pain. She has had a persistent fever since her diagnosis of Covid. She complains of feeling generally weak with malaise and states her shortness of breath is the biggest issue for her. PMHx: History reviewed. No pertinent past medical history. PMSx: History reviewed. No pertinent surgical history. FAM. Hx: History reviewed. No pertinent family history. SOC. Hx: Social History Socioeconomic History Marital status: Spouse name: Not on file Number of children: Not on file Years of education: Not on file Highest education level: Not on file Occupational History Not on file Social Needs Financial resource strain: Not on file Food insecurity Worry: Not on file Inability: Not on file Transportation needs Medical: Not on file Non-medical: Not on file Tobacco Use Smoking status: Never Smoker Smokeless tobacco: Never Used Substance and Sexual Activity Alcohol use: Not Currently Drug use: Not Currently Sexual activity: Not on file Lifestyle Physical activity Days per week: Not on file Minutes per session: Not on file Stress: Not on file Relationships Social connections Talks on phone: Not on file Gets together: Not on file Attends adventist service: Not on file Active member of club or organization: Not on file Attends meetings of clubs or organizations: Not on file Relationship status: Not on file Other Topics Concern Not on file Social History Narrative Not on file MEDs: Previous Medications Medication Sig albuterol (Ventolin HFA) 90 mcg/actuation inhaler Inhale 2 (two) puffs every 6 (six) hours as needed for wheezing, shortness of breath or cough . azithromycin (Z-ZACHARY) 5 day dose pack Take two tablets by mouth on day 1, then one tablet by mouth daily until finished. . ALL: No Known Allergies ROS: Positives and pertinent negatives as per HPI. All other systems were reviewed and are negative. Physical Exam: Patient Vitals for the past 24 hrs: BP Temp Temp src Pulse Resp SpO2 Height Weight 08/27/20 1245 (!) 113/58 80 93 % 08/27/20 1200 (!) 112/45 84 94 % 08/27/20 1145 (!) 111/50 85 08/27/20 1130 85 16 96 % 08/27/20 1100 (!) 108/56 99 94 % 08/27/20 1058 (!) 115/47 89 94 % 08/27/20 1030 90 % 08/27/20 1025 (!) 124/44 98.8 F (37.1 C) Oral 92 (!) 20 (!) 88 % 5' 6 99.8 kg (220 lb) Physical Exam Vitals signs and nursing note reviewed. Constitutional: Appearance: She is well-developed. HENT: Head: Normocephalic. Eyes: Pupils: Pupils are equal, round, and reactive to light. Neck: Musculoskeletal: Normal range of motion. Cardiovascular: Rate and Rhythm: Normal rate and regular rhythm. Pulmonary: Effort: Pulmonary effort is normal. Abdominal: General: Bowel sounds are normal. Palpations: Abdomen is soft. Musculoskeletal: Normal range of motion. Skin: General: Skin is warm and dry. Neurological: General: No focal deficit present. Mental Status: She is alert and oriented to person, place, and time. Psychiatric: Mood and Affect: Mood normal. Behavior: Behavior normal. Laboratory & Radiological Imaging (if done): Labs Reviewed COMPREHENSIVE METABOLIC PANEL - Abnormal; Notable for the following components: Result Value Potassium 3.2 (*) Glucose 117 (*) Albumin 2.6 (*) AST 123 (*) ALT 106 (*) All other components within normal limits Narrative: The eGFR should be used for monitoring renal function only and not for medication dosing. NT PRO BNP - Abnormal; Notable for the following components: NT-Pro BNP 415 (*) All other components within normal limits Narrative: Pride Study Cut-offs Rule In: < /= 50 Years >450 pg/mL 51 Years - 75 Years >900 pg/mL 76 Years - 99 Years >1800 pg/mL Rule Out: All patients <300 pg/mL NT PRO BNP - Abnormal; Notable for the following components: NT-Pro BNP 408 (*) All other components within normal limits Narrative: Pride Study Cut-offs Rule In: < /= 50 Years >450 pg/mL 51 Years - 75 Years >900 pg/mL 76 Years - 99 Years >1800 pg/mL Rule Out: All patients <300 pg/mL CBC WITH AUTO DIFFERENTIAL - Abnormal; Notable for the following components: Nucleated RBC Abs 0.02 (*) All other components within normal limits PT/INR - Normal Narrative: During the induction phase of oral anticoagulation, the INR may not reflect the anticoagulation status of the patient. Therapeutic ranges for INR's are: Most clinical situations: INR 2.0-3.0 Mechanical Prosthetic Valve: INR 2.5-3.5 Critical: INR >5.0 CBC AND DIFFERENTIAL Narrative: The following orders were created for panel order CBC and Differential. Procedure Abnormality Status --------- ------ CBC Auto Differential[[id number]] Abnormal Final result Please view results for these tests on the individual orders. TROPONIN URINALYSIS CT Pulmonary Arteries Non-public Result No evidence of pulmonary embolism or aortic dissection. Extensive bilateral multilobar pneumonia. Mediastinal and hilar lymphadenopathy, favored to be reactive. Recommend 3 month follow-up. Small hiatal hernia. Workstation ID: [id number] XR Chest 1 View Final Result Bilateral perihilar infiltrates left greater than right. Follow-up until complete resolution is suggested. Workstation ID: [id number] Procedures: Procedures Critical Care Time on this patient was between 30-74 minutes due to concern for respiratory distress. This was exclusive of separately billable procedures. ED Course / Medical Decision Making: Work-up the patient shows significant bilateral infiltrates along with noticeable hypoxia with a pulse ox of only 88% on room air. CAT scan shows no evidence of pulmonary embolus. Patient is given IV dexamethasone here, and case discussed with the hospitalist agrees with plan for admission. . . Clinical Impression: 1. Pneumonia of both lungs due to infectious organism, unspecified part of lung 2. COVID-19 3. Hypoxia Disposition: Patient is being hospitalize to telemetry Ester Orozco MD [facility] Emergency Department (Please note that portions of this note have been completed with a voice recognition software. Efforts were made to correct any errors, but occasionally words are mis-transcribed.) Ester Orozco MD 08/27/20 1401 Pt presents to ER for worsening SOB over past couple days. Pt dx w/ covid and influenza B on 08/17, seen PCP on 08/24 dx w/ pneumonia and started on antibiotics and inhaler. Per pt SOB upon exertion and nonproductive cough started yesterday. Bed: 04 Expected date: Expected time: Means of arrival: Comments: TRIAGE PT documented in this encounter Quick Note - Ernestina Barlow RN - 09/02/2020 3:40 PM ESTPlan of [place] - Ernestina Barlow RN - 09/02/2020 2:33 PM ESTPlan of Ernestina Duncan RN - 09/02/2020 2:13 PM EST Miscellaneous Notes (unrecog nized section and content) Reviewed discharge paperwork with patient. Went over patient's oxygen at this time. All questions answered. Problem: Actual or potential alteration in health Goal: Absence of healthcare acquired conditions 09/02/2020 1433 by Ernestina Barlow RN Outcome: Completed 09/02/2020 1413 by Ernestina Barlow RN Outcome: Partially Met Goal: Knowledge of Interdisciplinary Plan of Care 09/02/2020 1433 by Ernestina Barlow RN Outcome: Completed 09/02/2020 1413 by Ernestina Barlow RN Outcome: Partially Met Goal: Knowledge of Enviroment 09/02/2020 1433 by Ernestina Barlow RN Outcome: Completed 09/02/2020 1413 by Ernestina Barlow RN Outcome: Partially Met Problem: Pain Goal: Manage acute pain 09/02/2020 1433 by Ernestina Barlow RN Outcome: Completed 09/02/2020 1413 by Ernestina Barlow RN Outcome: Partially Met Goal: Manage chronic pain 09/02/2020 1433 by Ernestina Barlow RN Outcome: Completed 09/02/2020 1413 by Ernestina Barlow RN Outcome: Partially Met Goal: Reduced pain sensation 09/02/2020 1433 by Ernestina Barlow RN Outcome: Completed 09/02/2020 1413 by Ernestina Barlow RN Outcome: Partially Met Goal: Achievement of comfort function goal 09/02/2020 1433 by Ernestina Barlow RN Outcome: Completed 09/02/2020 1413 by Ernestina Barlow RN Outcome: Partially Met Problem: Actual or potential alteration in health Goal: Absence of healthcare acquired conditions Outcome: Partially Met Goal: Knowledge of Interdisciplinary Plan of Care Outcome: Partially Met Goal: Knowledge of Enviroment Outcome: Partially Met Problem: Pain Goal: Manage acute pain Outcome: Partially Met Goal: Manage chronic pain Outcome: Partially Met Goal: Reduced pain sensation Outcome: Partially Met Goal: Achievement of comfort function goal Outcome: Partially Met Problem: Actual or potential alteration in health Goal: Absence of healthcare acquired conditions Outcome: Partially Met Goal: Knowledge of Interdisciplinary Plan of Care Outcome: Partially Met Goal: Knowledge of Enviroment Outcome: Partially Met Problem: Pain Goal: Manage acute pain Outcome: Partially Met Goal: Manage chronic pain Outcome: Partially Met Goal: Reduced pain sensation Outcome: Partially Met Goal: Achievement of comfort function goal Outcome: Partially Met Problem: Actual or potential alteration in health Goal: Absence of healthcare acquired conditions Outcome: Met Goal: Knowledge of Enviroment Outcome: Met Problem: Pain Goal: Manage acute pain Outcome: Met Goal: Achievement of comfort function goal Outcome: Met Problem: Actual or potential alteration in health Goal: Knowledge of Interdisciplinary Plan of Care Outcome: Partially Met Problem: Actual or potential alteration in health Goal: Absence of healthcare acquired conditions Outcome: Partially Met Goal: Knowledge of Interdisciplinary Plan of Care Outcome: Partially Met Goal: Knowledge of Enviroment Outcome: Partially Met Problem: Pain Goal: Manage acute pain Outcome: Partially Met Goal: Manage chronic pain Outcome: Partially Met Goal: Reduced pain sensation Outcome: Partially Met Goal: Achievement of comfort function goal Outcome: Partially Met Per patient request she will update her family no need for AM updates Problem: Actual or potential alteration in health Goal: Absence of healthcare acquired conditions Outcome: Partially Met Goal: Knowledge of Interdisciplinary Plan of Care Outcome: Partially Met Goal: Knowledge of Enviroment Outcome: Partially Met Problem: Pain Goal: Manage acute pain Outcome: Partially Met Goal: Manage chronic pain Outcome: Partially Met Goal: Reduced pain sensation Outcome: Partially Met Goal: Achievement of comfort function goal Outcome: Partially Met Problem: Actual or potential alteration in health Goal: Absence of healthcare acquired conditions Outcome: Met Goal: Knowledge of Interdisciplinary Plan of Care Outcome: Met Goal: Knowledge of Enviroment Outcome: Met Problem: Pain Goal: Manage acute pain Outcome: Met Goal: Manage chronic pain Outcome: Met Goal: Reduced pain sensation Outcome: Met Goal: Achievement of comfort function goal Outcome: Met Problem: Actual or potential alteration in health Goal: Absence of healthcare acquired conditions 08/30/202018 by Toby Collado RN Outcome: Partially Met 08/30/202018 by Toby Collado, RN Outcome: Partially Met Goal: Knowledge of Interdisciplinary Plan of Care 08/30/202018 by Toby Collado RN Outcome: Partially Met 08/30/202018 by Toby Collado, RN Outcome: Partially Met Goal: Knowledge of Enviroment 08/30/20209 by Toby Collado, RN Outcome: Partially Met 08/30/202018 by Toby Collado, RN Outcome: Partially Met Problem: Pain Goal: Manage acute pain 08/30/202018 by Toby Collado RN Outcome: Partially Met 08/30/202018 by Toby Collado RN Outcome: Partially Met Goal: Manage chronic pain 08/30/202018 by Toby Collado RN Outcome: Partially Met 08/30/202018 by Toby Collado RN Outcome: Partially Met Goal: Reduced pain sensation 08/30/202018 by Toby Collado RN Outcome: Partially Met 08/30/202018 by Toby Collado RN Outcome: Partially Met Goal: Achievement of comfort function goal 08/30/202018 by Toby Collado RN Outcome: Partially Met 08/30/202018 by Toby Collado RN Outcome: Partially Met Noted IV Lasix was started on08/28. Clinical Indicators: ? Test results: 08/27 BNP: 415, 408 CT PA: no PE, extensive bilateral lobar PNA...small hiatal hernia CXR: Bilateral perihilar infiltrates left greater than right 08/28 BNP: 322 XR Chest: B/L pulmonary infiltrates unchanged ? MAR: 08/28: IV Lasix 20 mg x1 08/29: IV Lasix 40 mg x1 ? [facility] [[email or web address]] documentation: 08/28 significant event note: bedside for hypoxemia, requiring 100% NRB. Patient started on 4L per NC then 100% NRB d/t oxygen saturations of 82% ..Orders placed for daily inflammatory markers and CBC, check BNP, scheduled/PRN albuterol, add zinc. Diuresis as able Will order Lasix 20mg IV now however has soft Bps. CXR now. Acute Hypoxemic Respiratory Failure Severe ARDs Covid Pneumonia 08/28 PN: PE: CVS: trace pedal edema Respiratory: Crackles bilateral no PMHx Please document the condition being treated with IV Lasix in the progress note. For Example: ? Acute pulmonary edema ? Acute edema: ____ (please specify etiology) ? Other (please specify) ? Unable to Determine Thank you, Sherly OLIVO, RN Clinical Single Stayer Operator After business hours you may contact Ida Easton at [phone] (Weekdays until 10 PM and weekends 8 AM -10 PM) Problem: Actual or potential alteration in health Goal: Absence of healthcare acquired conditions Outcome: Partially Met Goal: Knowledge of Interdisciplinary Plan of Care Outcome: Partially Met Goal: Knowledge of Enviroment Outcome: Partially Met Problem: Pain Goal: Manage acute pain Outcome: Partially Met Goal: Manage chronic pain Outcome: Partially Met Goal: Reduced pain sensation Outcome: Partially Met Goal: Achievement of comfort function goal Outcome: Partially Met Called PICC team to check on status of pt getting ultrasound IV. Marce BERKOWITZ stated they are doing a PICC line on another floor and then will be over. This nurse and nurse discharge unable to get IV access. Consult placed to IV team. PICC team notified. Called to patient's bedside for hypoxemia, requiring 100% NRB. Patient started on 4L per NC then 100% NRB d/t oxygen saturations of 82%. ABG drawn and reviewed. Discussed HFNC with the patient. She is agreeable. Will transfer to [facility] for HFNC vs bipap. Orders placed for daily inflammatory markers and CBC, check BNP, scheduled/PRN albuterol, add zinc. Diuresis as able. Will order Lasix 20mg IV now however has soft Bps. CXR now. Add electrolyte replacement. Encouraged patient to use prone positioning and incentive spirometer ordered. Acute Hypoxemic Respiratory Failure Severe ARDs Covid Pneumonia Aimee LAYTON Patient dropped to 82%. Had patient turn on side and slightly on abdomen, no improvement. Applied non-rebreather at 15L. Patient currently at 92%. RT, Rapid Response nurse, and MAINTENANCE MAN updated. Patient's pulse ox staying around 90%. Dipped down to 88-89% while this nurse was doing VS. Encouraged patient to lie prone, patient declined, states she can't. Patient was lying on left side, encouraged patient to turn onto other side and scoot up in bed. Patient complied. Hydration added to oxygen for comfort. Increased oxygen to 4.5 liters. Patient maintaining at 89%. Will continue to monitor. Associated Order(s): EKG 12-lead EKG 12-lead Date/Time: 08/27/2020 11:11 AM Performed by: Ester Orozco MD Authorized by: Ester Orozco MD Interpreted by ED attending physician Rhythm: sinus rhythm BPM: 87 Conduction: conduction normal ST Segments: ST segments normal QRS axis: normal T Waves: T waves normal Clinical impression: normal ECG documented in this encounter Source Comments (unrecognize d section and content) In the event this informatio n is protected by the Federal Confidentiality of Alcohol and Drug Abuse Patient Records regulations: The Federal rules restrict any use of the information to criminally investigate or prosecute any alcohol or drug abuse patient.[facility] the event this information is protected by the Federal Confidentiality of Alcohol and Drug Abuse Patient Records regulations: The Federal rules restrict any use of the information to criminally investigate or prosecute any alcohol or drug abuse patient.[facility] the event this information is protected by the Federal Confidentiality of Alcohol and Drug Abuse Patient Records regulations: The Federal rules restrict any use of the information to criminally investigate or prosecute any alcohol or drug abuse patient.[facility] the event this information is protected by the Federal Confidentiality of Alcohol and Drug Abuse Patient Records regulations: The Federal rules restrict any use of the information to criminally investigate or prosecute any alcohol or drug abuse patient.[facility] the event this information is protected by the Federal Confidentiality of Alcohol and Drug Abuse Patient Records regulations: The Federal rules restrict any use of the information to criminally investigate or prosecute any alcohol or drug abuse patient.[facility] Care Teams (unrecognized sec tion and content) Medical Collections Specialist Relationship Specialty Start Date End Date Ashley Melendrez MD [address] [place] [address] PCP - General Internal Medicine 03/22/21 Medical Collections Specialist Relationship Specialty Start Date End Date Ashley Melendrez MD [address] [place] [phone] PCP - General Internal Medicine 03/22/21 Medical Collections Specialist Relationship Specialty Start Date End Date Ashley Melendrez MD [address] [place] [phone] PCP - General Internal Medicine 03/22/21 Medical Collections Specialist Relationship Specialty Start Date End Date Ashley Melendrez MD [address] [place] [phone] PCP - General Internal Medicine 03/22/21 Medical Collections Specialist Relationship Specialty Start Date End Date Ashley Melendrez MD [address] [facility] [address] [place], [place] [phone] PCP - General 05/03/22 FOR RECORDS PERTAINING TO PATIENTS WHO ARE OR HAVE BEEN ENROLLED IN A CHEMICAL DEPENDENCY/SUBSTANCEABUSE PROGRAM, SOME INFORMATION MAY BE OMITTED. This clinical summary was aggregated from multiple sources. Caution should be exercised in using it in the provision of clinical care. This summary normalizes information from multiple sources, and as a consequence, information in this document may materially change the coding, format and clinical context of patient data. In addition, data may be omitted in some cases. CLINICAL DECISIONS SHOULD BE BASED ON THE PRIMARY CLINICAL RECORDS. [facility] [employer] provides no warranty or guarantee of the accuracy or completeness of information in this document.
[2023-10-06 12:38] LABS: Absolute Lymphocyte Count 1.89 X10^3/uL (0.83-4.51); Absolute Neutrophil Count 2.5 X10^3/uL (2.0-7.7); Basophil# 0.05 X10^3/uL; Eosinophil# 0.14 X10^3/uL; Eosinophils% 2.7 % (0-5); Hematocrit 40.8 % (37-47); Lymphocyte # 1.89 X10^3/ul (0.83-4.51); Lymphocyte % 36.8 % (19-41); Mean Corp Hgb Conc 31.9 g/dL (32-36); Mean Corpuscular Hgb 30.2 pg (27.0-32.0); Mean Corpuscular Volume 94.9 fL (81-99); Mean Platelet Vol. 12.1 fl (6.2-12.0); Monocyte# 0.55 X10^3/uL; Monocyte% 10.7 % (0-10); NRBC Flagged by Analyzer 0 % (0-5); Neutrophil % 48.6 % (47-70); Platelet Count 235 K/mm3 (150-450); RBC Distribution Width CV 15.2 % (11.6-14.6); RBC Distribution Width SD 52.6 fl (35.1-43.9); White Blood Count 5.1 K/mm3 (4.4-11.0)
[2023-10-06 12:56] LABS: AST(SGOT) 25 U/L (15-37); Alanine Aminotransfer ALT/SGPT 35 U/L (13-56); Albumin, Serum 3.4 g/dL (3.2-5.0); Alkaline Phosphatase 81 U/L (45-117); Anion Gap 3 (5-15); BUN 15 mg/dL (7-18); BUN/Creat Ratio 21.6 RATIO (10-20); Calcium,Total 8.8 mg/dL (8.5-10.1); Chloride 111 mmol/L (98-107); Creatinine, Serum 0.69 mg/dL (0.55-1.02); EST Glomerular Filtration Rate 91 mL/min (>60); Est Glom Filt Rate - Afr Amer 110 mL/min (>60); Globulin 3.3 g/dL (2.2-4.2); Glucose 96 mg/dL (74-106); Potassium 4.3 mmol/L (3.5-5.1); Protein, Total 6.7 g/dL (6.4-8.2); Sodium Level 143 mmol/L (136-145)
== END | disposition home or self-care (01) ==
LOC: BIMLAB 08:43
PROVIDERS: PCP Internal Medicine; Visit Provider Internal Medicine Rheumatology
DX: M05.79 Rheumatoid arthritis with rheumatoid factor of multiple sites without organ or systems involvement (principal); Z79.899 Other long term (current) drug therapy
CPT/HCPCS: 36415; 80053; 85025

== ENCOUNTER → 2023-11-30 | Outpatient (CLI) | payer BC, SELFPAY ==
[2023-11-30 12:11] LABS: Absolute Lymphocyte Count 1.86 X10^3/uL (0.83-4.51); Absolute Neutrophil Count 2.1 X10^3/uL (2.0-7.7); Basophil# 0.05 X10^3/uL; Basophil% 1.1 % (0-1); Eosinophil# 0.13 X10^3/uL; Eosinophils% 2.8 % (0-5); Hemoglobin 12.2 g/dL (12.0-15.0); Lymphocyte # 1.86 X10^3/ul (0.83-4.51); Lymphocyte % 40.4 % (19-41); Mean Corp Hgb Conc 31.3 g/dL (32-36); Mean Corpuscular Hgb 30.5 pg (27.0-32.0); Mean Corpuscular Volume 97.5 fL (81-99); Mean Platelet Vol. 11.6 fl (6.2-12.0); Monocyte# 0.43 X10^3/uL; Monocyte% 9.3 % (0-10); NRBC Flagged by Analyzer 0 % (0-5); Neutrophil # 2.12 X10^3/uL (2.7-7.7); Neutrophil % 46.2 % (47-70); Platelet Count 248 K/mm3 (150-450); RBC Distribution Width CV 15.5 % (11.6-14.6); RBC Distribution Width SD 54.5 fl (35.1-43.9); White Blood Count 4.6 K/mm3 (4.4-11.0)
[2023-11-30 12:25] LABS: AST(SGOT) 33 U/L (15-37); Alanine Aminotransfer ALT/SGPT 35 U/L (13-56); Albumin, Serum 3.3 g/dL (3.2-5.0); Alkaline Phosphatase 77 U/L (45-117); Anion Gap 5 (5-15); BUN 13 mg/dL (7-18); Chloride 108 mmol/L (98-107); Creatinine, Serum 0.81 mg/dL (0.55-1.02); EST Glomerular Filtration Rate 76 mL/min (>60); Est Glom Filt Rate - Afr Amer 92 mL/min (>60); Globulin 3.3 g/dL (2.2-4.2); Glucose 115 mg/dL (74-106); Potassium 4.4 mmol/L (3.5-5.1); Protein, Total 6.6 g/dL (6.4-8.2); Sodium Level 142 mmol/L (136-145)
== END | disposition home or self-care (01) ==
LOC: BIMLAB 08:30
PROVIDERS: PCP Internal Medicine; Visit Provider Internal Medicine Rheumatology
DX: M05.79 Rheumatoid arthritis with rheumatoid factor of multiple sites without organ or systems involvement (principal); Z79.899 Other long term (current) drug therapy
CPT/HCPCS: 36415; 80053; 85025

== ENCOUNTER → 2024-02-22 | Outpatient (CLI) | payer BC, SELFPAY ==
[2024-02-22 12:05] LABS: Absolute Lymphocyte Count 3.15 X10^3/uL (0.83-4.51); Absolute Neutrophil Count 4.1 X10^3/uL (2.0-7.7); Basophil# 0.05 X10^3/uL; Basophil% 0.6 % (0-1); Eosinophil# 0.19 X10^3/uL; Eosinophils% 2.3 % (0-5); Hematocrit 39.8 % (37-47); Hemoglobin 12.5 g/dL (12.0-15.0); Lymphocyte # 3.15 X10^3/ul (0.83-4.51); Lymphocyte % 38.1 % (19-41); Mean Corp Hgb Conc 31.4 g/dL (32-36); Mean Corpuscular Hgb 30.4 pg (27.0-32.0); Mean Corpuscular Volume 96.8 fL (81-99); Mean Platelet Vol. 11.7 fl (6.2-12.0); Monocyte% 8.5 % (0-10); NRBC Flagged by Analyzer 0 % (0-5); Neutrophil # 4.14 X10^3/uL (2.7-7.7); Neutrophil % 50.1 % (47-70); Platelet Count 255 K/mm3 (150-450); RBC Distribution Width CV 16.2 % (11.6-14.6); RBC Distribution Width SD 56.2 fl (35.1-43.9); Red Blood Count 4.11 M/mm3 (4.2-5.4); White Blood Count 8.3 K/mm3 (4.4-11.0)
[2024-02-22 12:19] LABS: ALB/GLOB Ratio 1.1 RATIO (0.9-2.4); AST(SGOT) 20 U/L (15-37); Alanine Aminotransfer ALT/SGPT 36 U/L (13-56); Albumin, Serum 3.5 g/dL (3.2-5.0); Alkaline Phosphatase 85 U/L (45-117); Anion Gap 6 (5-15); BUN 16 mg/dL (7-18); BUN/Creat Ratio 19.8 RATIO (10-20); Calcium,Total 8.8 mg/dL (8.5-10.1); Chloride 106 mmol/L (98-107); Creatinine, Serum 0.81 mg/dL (0.55-1.02); EST Glomerular Filtration Rate 76 mL/min (>60); Est Glom Filt Rate - Afr Amer 92 mL/min (>60); Globulin 3.3 g/dL (2.2-4.2); Glucose 86 mg/dL (74-106); Potassium 4.1 mmol/L (3.5-5.1); Protein, Total 6.8 g/dL (6.4-8.2); Sodium Level 141 mmol/L (136-145)
== END | disposition home or self-care (01) ==
LOC: BIMLAB 10:05
PROVIDERS: PCP Internal Medicine; Referring Provider Internal Medicine Rheumatology; Visit Provider Internal Medicine Rheumatology
DX: M05.79 Rheumatoid arthritis with rheumatoid factor of multiple sites without organ or systems involvement (principal); Z79.899 Other long term (current) drug therapy
CPT/HCPCS: 36415; 80053; 85025

== ENCOUNTER → 2024-05-16 | Outpatient (CLI) | payer BC, SELFPAY ==
[2024-05-16 15:27] LABS: Absolute Lymphocyte Count 2.27 X10^3/uL (0.83-4.51); Absolute Neutrophil Count 2.9 X10^3/uL (2.0-7.7); Basophil# 0.05 X10^3/uL; Basophil% 0.9 % (0-1); Eosinophil# 0.15 X10^3/uL; Eosinophils% 2.6 % (0-5); Hematocrit 37.8 % (37-47); Hemoglobin 11.8 g/dL (12.0-15.0); Lymphocyte # 2.27 X10^3/ul (0.83-4.51); Lymphocyte % 39.6 % (19-41); Mean Corp Hgb Conc 31.2 g/dL (32-36); Mean Corpuscular Hgb 31.1 pg (27.0-32.0); Mean Corpuscular Volume 99.7 fL (81-99); Mean Platelet Vol. 11.3 fl (6.2-12.0); Monocyte# 0.39 X10^3/uL; Monocyte% 6.8 % (0-10); NRBC Flagged by Analyzer 0 % (0-5); Neutrophil # 2.86 X10^3/uL (2.7-7.7); Neutrophil % 49.9 % (47-70); Platelet Count 244 K/mm3 (150-450); RBC Distribution Width CV 16.1 % (11.6-14.6); RBC Distribution Width SD 58.1 fl (35.1-43.9); Red Blood Count 3.79 M/mm3 (4.2-5.4); White Blood Count 5.7 K/mm3 (4.4-11.0)
[2024-05-16 16:19] LABS: ALB/GLOB Ratio 1.1 RATIO (0.9-2.4); AST(SGOT) 24 U/L (15-37); Alanine Aminotransfer ALT/SGPT 26 U/L (13-56); Albumin, Serum 3.5 g/dL (3.2-5.0); Alkaline Phosphatase 91 U/L (45-117); Anion Gap 7 (5-15); BUN 10 mg/dL (7-18); BUN/Creat Ratio 13.4 RATIO (10-20); Chloride 106 mmol/L (98-107); Creatinine, Serum 0.75 mg/dL (0.55-1.02); EST Glomerular Filtration Rate 84 mL/min (>60); Est Glom Filt Rate - Afr Amer 101 mL/min (>60); Globulin 3.3 g/dL (2.2-4.2); Glucose 83 mg/dL (74-106); Potassium 3.7 mmol/L (3.5-5.1); Protein, Total 6.8 g/dL (6.4-8.2); Sodium Level 141 mmol/L (136-145)
== END | disposition home or self-care (01) ==
LOC: BIMLAB 11:38
PROVIDERS: PCP Internal Medicine; Referring Provider Internal Medicine Rheumatology; Visit Provider Internal Medicine Rheumatology
DX: M05.79 Rheumatoid arthritis with rheumatoid factor of multiple sites without organ or systems involvement (principal); Z79.899 Other long term (current) drug therapy
CPT/HCPCS: 36415; 80053; 85025

== ENCOUNTER → 2024-08-11 | Outpatient (CLI) | payer BC, SELFPAY ==
[2024-08-11 12:34] LABS: Absolute Lymphocyte Count 1.28 X10^3/uL (0.83-4.51); Absolute Neutrophil Count 6.7 X10^3/uL (2.0-7.7); Basophil# 0.07 X10^3/uL; Basophil% 0.8 % (0-1); Eosinophil# 0.19 X10^3/uL; Eosinophils% 2.1 % (0-5); Hematocrit 41.3 % (37-47); Hemoglobin 13.2 g/dL (12.0-15.0); Lymphocyte # 1.28 X10^3/ul (0.83-4.51); Lymphocyte % 14.4 % (19-41); Mean Corpuscular Hgb 30.3 pg (27.0-32.0); Mean Corpuscular Volume 94.7 fL (81-99); Mean Platelet Vol. 12.1 fl (6.2-12.0); Monocyte# 0.58 X10^3/uL; Monocyte% 6.5 % (0-10); NRBC Flagged by Analyzer 0 % (0-5); Neutrophil # 6.69 X10^3/uL (2.7-7.7); Neutrophil % 75.6 % (47-70); POSITIVE COUNT YES; Platelet Count 196 K/mm3 (150-450); RBC Distribution Width CV 16.7 % (11.6-14.6); Red Blood Count 4.36 M/mm3 (4.2-5.4); White Blood Count 8.9 K/mm3 (4.4-11.0)
[2024-08-11 12:54] LABS: ALB/GLOB Ratio 0.9 RATIO (0.9-2.4); AST(SGOT) 24 U/L (15-37); Alanine Aminotransfer ALT/SGPT 21 U/L (13-56); Albumin, Serum 3.5 g/dL (3.2-5.0); Alkaline Phosphatase 90 U/L (45-117); Anion Gap 5 (5-15); BUN 15 mg/dL (7-18); BUN/Creat Ratio 17.7 RATIO (10-20); Calcium,Total 9.6 mg/dL (8.5-10.1); Chloride 108 mmol/L (98-107); Creatinine, Serum 0.85 mg/dL (0.55-1.02); EST Glomerular Filtration Rate 72 mL/min (>60); Est Glom Filt Rate - Afr Amer 87 mL/min (>60); Globulin 3.9 g/dL (2.2-4.2); Glucose 110 mg/dL (74-106); Protein, Total 7.4 g/dL (6.4-8.2); Sodium Level 140 mmol/L (136-145)
[2024-08-11 12:58] LABS: Differential Indicated SCAN CRITERIA MET
[2024-08-11 12:59] LABS: Differential Comment SCANNED
== END | disposition home or self-care (01) ==
PROVIDERS: PCP Internal Medicine; Referring Provider Internal Medicine Rheumatology; Visit Provider Internal Medicine Rheumatology
DX: M05.79 Rheumatoid arthritis with rheumatoid factor of multiple sites without organ or systems involvement (principal); Z79.899 Other long term (current) drug therapy
CPT/HCPCS: 36415; 80053; 85025

== ENCOUNTER → 2024-08-12 | Outpatient (CLI) | payer BC, SELFPAY ==
[2024-08-12 18:47] LABS: D-Dimer Quantitative (DVT/PE) > 20.00 FEU/ug/m (0.27-0.49)
== END | disposition home or self-care (01) ==
LOC: BIMLAB 15:42
PROVIDERS: PCP Internal Medicine; Referring Provider Internal Medicine; Visit Provider Internal Medicine
DX: M79.605 Pain in left leg (principal); M79.89 Other specified soft tissue disorders
CPT/HCPCS: 36415; 85379

== ENCOUNTER → 2024-08-12 | Outpatient (CLI) | payer BC, SELFPAY ==
--- NOTE | 2024-08-12 15:58 | VDLE_ITS ---
Version 2 Reason For Study: Left leg pain RIGHT LEFT CFV is compressible, spontaneous, phasic, GSV is normal. competent and demonstrates normal CFV is compressible, spontaneous, phasic, augmentation. competent, and demonstrates normal Procedure augmentation. This is a venous duplex using B-mode, color Acute deep vein thrombosis is noted in the flow and spectral Doppler. left FV mid-distal, PopV, T/P Trunk, PTV and Exam performed in department. PeroV. It is NONCOMPRESSIBLE and dilated. A preliminary report was called and/or faxed Acute superficial vein thrombosis is noted in to Calista BERKOWITZ. the SSV prox. It is NONCOMPRESSIBLE and dilated. Thrombus filled varicose veins noted at prox calf extending from the SSV. VL/Venous Duplex US, Unilateral Interpretation Summary Acute deep vein thrombosis is noted in the left femoral vein, popliteal vein, t ibioperoneal trunk vein, posterior tibial vein, peroneal vein. Acute superficial vein thrombosis noted in the left small saphenous vein and ca lf varicosities. Ordering Physician: Ashley Melendrez Referring Physician: Ashley Melendrez Performed By: Leigh Mock RVT
== END | disposition home or self-care (01) ==
LOC: CVS 15:58
PROVIDERS: PCP Internal Medicine; Referring Provider Internal Medicine; Visit Provider Internal Medicine
DX: M79.605 Pain in left leg (principal); M79.89 Other specified soft tissue disorders
CPT/HCPCS: 93971

== ENCOUNTER → 2024-09-09 | Outpatient (CLI) | payer BC, SELFPAY ==
--- NOTE | 2024-09-09 11:40 | RAD_ITS ---
EXAM: XR Chest, 2 Views CLINICAL INDICATION: TECHNIQUE: Frontal and lateral views of the chest. COMPARISON: No relevant prior studies available. FINDINGS: LUNGS AND PLEURAL SPACES: Unremarkable. No consolidation. No pneumothorax. HEART: Unremarkable. No cardiomegaly. MEDIASTINUM: Unremarkable. Normal mediastinal contour. BONES/JOINTS: Unremarkable. No acute fracture. RAD/Chest PA and Lateral IMPRESSION: No acute cardiopulmonary process. Reading [facility]
== END | disposition home or self-care (01) ==
LOC: LABSPEC 11:18 → RAD 11:29
PROVIDERS: PCP Internal Medicine; Referring Provider Internal Medicine; Visit Provider Internal Medicine
DX: R05.9 Cough, unspecified (principal); R09.89 Other specified symptoms and signs involving the circulatory and respiratory systems
CPT/HCPCS: 71046; 87631

== ENCOUNTER → 2024-10-31 | Outpatient (CLI) | payer BC, SELFPAY ==
[2024-10-31 12:35] LABS: Absolute Neutrophil Count 4.7 X10^3/uL (2.0-7.7); Basophil# 0.05 X10^3/uL; Basophil% 0.8 % (0-1); Eosinophil# 0.04 X10^3/uL; Eosinophils% 0.7 % (0-5); Hemoglobin 12.6 g/dL (12.0-15.0); Mean Corp Hgb Conc 32.3 g/dL (32-36); Mean Corpuscular Hgb 30.4 pg (27.0-32.0); Mean Corpuscular Volume 94.2 fL (81-99); Mean Platelet Vol. 11.6 fl (6.2-12.0); Monocyte# 0.24 X10^3/uL; Monocyte% 3.9 % (0-10); NRBC Flagged by Analyzer 0 % (0-5); Neutrophil # 4.65 X10^3/uL (2.7-7.7); Neutrophil % 76.3 % (47-70); Platelet Count 284 K/mm3 (150-450); RBC Distribution Width CV 16.6 % (11.6-14.6); RBC Distribution Width SD 56.5 fl (35.1-43.9); Red Blood Count 4.14 M/mm3 (4.2-5.4); White Blood Count 6.1 K/mm3 (4.4-11.0)
[2024-10-31 13:15] LABS: ALB/GLOB Ratio 1.3 RATIO (0.9-2.4); AST(SGOT) 23 U/L (<=31); Alanine Aminotransfer ALT/SGPT 16 U/L (<=34); Alkaline Phosphatase 81 U/L (35-104); Anion Gap 11 (5-15); BUN 16 mg/dL (4-19); BUN/Creat Ratio 21.3 RATIO (10-20); Carbon Dioxide 25.3 mmol/L (21.0-32.0); Chloride 106 mmol/L (98-108); Creatinine, Serum 0.74 mg/dL (0.70-1.20); EST Glomerular Filtration Rate 91 (>60); Glucose 110 mg/dL (70-99); Potassium 4.1 mmol/L (3.3-5.1); Sodium Level 141 mmol/L (133-145); Total Bilirubin 0.32 mg/dL (0.00-1.30)
== END | disposition home or self-care (01) ==
LOC: BIMLAB 11:28
PROVIDERS: PCP Internal Medicine; Referring Provider Internal Medicine Rheumatology; Visit Provider Internal Medicine Rheumatology
DX: M05.79 Rheumatoid arthritis with rheumatoid factor of multiple sites without organ or systems involvement (principal); Z79.899 Other long term (current) drug therapy
CPT/HCPCS: 36415; 80053; 85025

== ENCOUNTER → 2025-01-19 | Outpatient (CLI) | payer BC, SELFPAY ==
[2025-01-19 12:30] LABS: Absolute Lymphocyte Count 1.82 X10^3/uL (0.83-4.51); Absolute Neutrophil Count 4.3 X10^3/uL (2.0-7.7); Basophil# 0.07 X10^3/uL; Eosinophil# 0.14 X10^3/uL; Hematocrit 40.1 % (37-47); Hemoglobin 12.8 g/dL (12.0-15.0); Lymphocyte # 1.82 X10^3/ul (0.83-4.51); Lymphocyte % 26.2 % (19-41); Mean Corp Hgb Conc 31.9 g/dL (32-36); Mean Corpuscular Hgb 30.8 pg (27.0-32.0); Mean Corpuscular Volume 96.6 fL (81-99); Mean Platelet Vol. 11.9 fl (6.2-12.0); Monocyte# 0.63 X10^3/uL; Monocyte% 9.1 % (0-10); NRBC Flagged by Analyzer 0 % (0-5); Neutrophil # 4.26 X10^3/uL (2.7-7.7); Neutrophil % 61.4 % (47-70); Platelet Count 281 K/mm3 (150-450); RBC Distribution Width CV 16.3 % (11.6-14.6); RBC Distribution Width SD 57.2 fl (35.1-43.9); Red Blood Count 4.15 M/mm3 (4.2-5.4); White Blood Count 6.9 K/mm3 (4.4-11.0)
[2025-01-19 13:13] LABS: ALB/GLOB Ratio 1.4 RATIO (0.9-2.4); AST(SGOT) 21 U/L (<=31); Alanine Aminotransfer ALT/SGPT 16 U/L (<=34); Albumin, Serum 3.7 g/dL (3.4-4.8); Alkaline Phosphatase 89 U/L (35-104); Anion Gap 10 (5-15); BUN 14 mg/dL (4-19); BUN/Creat Ratio 19.4 RATIO (10-20); Calcium,Total 8.9 mg/dL (7.6-11.0); Carbon Dioxide 26.5 mmol/L (21.0-32.0); Chloride 107 mmol/L (98-108); Creatinine, Serum 0.74 mg/dL (0.70-1.20); EST Glomerular Filtration Rate 91 (>60); Globulin 2.6 g/dL (2.2-4.2); Glucose 72 mg/dL (70-99); Potassium 4.4 mmol/L (3.3-5.1); Protein, Total 6.3 g/dL (5.9-8.4); Sodium Level 143 mmol/L (133-145); Total Bilirubin 0.22 mg/dL (0.00-1.30)
== END | disposition home or self-care (01) ==
LOC: BIMLAB 08:36
PROVIDERS: PCP Internal Medicine; Referring Provider Internal Medicine Rheumatology; Visit Provider Internal Medicine Rheumatology
DX: M05.79 Rheumatoid arthritis with rheumatoid factor of multiple sites without organ or systems involvement (principal); Z79.899 Other long term (current) drug therapy
CPT/HCPCS: 36415; 80053; 85025

== ENCOUNTER → 2025-03-14 | Outpatient (CLI) | payer BC, SELFPAY ==
[2025-03-14 15:59] LABS: AST(SGOT) 22 U/L (<=31); Alanine Aminotransfer ALT/SGPT 14 U/L (<=34); Albumin, Serum 3.7 g/dL (3.4-4.8); Alkaline Phosphatase 80 U/L (35-104); Anion Gap 11 (5-15); BUN 11 mg/dL (4-19); BUN/Creat Ratio 14.5 RATIO (10-20); Calcium,Total 9.1 mg/dL (7.6-11.0); Carbon Dioxide 25.8 mmol/L (21.0-32.0); Chloride 105 mmol/L (98-108); Globulin 2.6 g/dL (2.2-4.2); Glucose 124 mg/dL (70-99); Potassium 3.9 mmol/L (3.3-5.1)
[2025-03-14 16:05] LABS: Hematocrit 39.6 % (37-47); Hemoglobin 12.9 g/dL (12.0-15.0); Immature Granulocytes Count 0.030 X10^3/uL (0.0-0.0); Mean Corp Hgb Conc 32.6 g/dL (32-36); Mean Corpuscular Volume 96.6 fL (81-99); Mean Platelet Vol. 12.1 fl (6.2-12.0); NRBC Flagged by Analyzer 0 % (0-5); Platelet Count 244 K/mm3 (150-450); RBC Distribution Width CV 15.7 % (11.6-14.6); RBC Distribution Width SD 55.9 fl (35.1-43.9); Red Blood Count 4.10 M/mm3 (4.2-5.4); White Blood Count 6.7 K/mm3 (4.4-11.0)
== END | disposition home or self-care (01) ==
LOC: MTLAB 12:49
PROVIDERS: PCP Internal Medicine; Referring Provider Internal Medicine Rheumatology; Visit Provider Internal Medicine Rheumatology
DX: M05.79 Rheumatoid arthritis with rheumatoid factor of multiple sites without organ or systems involvement (principal); M25.512 Pain in left shoulder
CPT/HCPCS: 36415; 80053; 85025

== ENCOUNTER → 2025-06-12 | Outpatient (CLI) | payer BC, SELFPAY ==
[2025-06-12 10:30] LABS: Hematocrit 40.7 % (37-47); Hemoglobin 13.1 g/dL (12.0-15.0); Immature Granulocytes Count 0.020 X10^3/uL (0.0-0.0); Mean Corp Hgb Conc 32.2 g/dL (32-36); Mean Corpuscular Volume 97.8 fL (81-99); Mean Platelet Vol. 11.4 fl (6.2-12.0); NRBC Flagged by Analyzer 0 % (0-5); Platelet Count 262 K/mm3 (150-450); RBC Distribution Width CV 15.9 % (11.6-14.6); RBC Distribution Width SD 56.8 fl (35.1-43.9); Red Blood Count 4.16 M/mm3 (4.2-5.4); White Blood Count 6.2 K/mm3 (4.4-11.0)
[2025-06-12 10:49] LABS: AST(SGOT) 20 U/L (<=31); Alanine Aminotransfer ALT/SGPT 15 U/L (<=34); Albumin, Serum 3.5 g/dL (3.4-4.8); Alkaline Phosphatase 77 U/L (35-104); Anion Gap 8 (5-15); BUN 8 mg/dL (4-19); BUN/Creat Ratio 12.0 RATIO (10-20); Calcium,Total 9.0 mg/dL (7.6-11.0); Carbon Dioxide 28.1 mmol/L (21.0-32.0); Chloride 107 mmol/L (98-108); Globulin 2.4 g/dL (2.2-4.2); Glucose 72 mg/dL (70-99); Potassium 3.7 mmol/L (3.3-5.1)
== END | disposition home or self-care (01) ==
LOC: MTLAB 07:21
PROVIDERS: PCP Internal Medicine; Referring Provider Internal Medicine Rheumatology; Visit Provider Internal Medicine Rheumatology
DX: M05.79 Rheumatoid arthritis with rheumatoid factor of multiple sites without organ or systems involvement (principal); Z79.899 Other long term (current) drug therapy
CPT/HCPCS: 36415; 80053; 85025